=== PATIENT | male | born 1965 | race Caucasian/White ===

== ENCOUNTER 2017-08-21 09:43 | Observation (INO) | payer SELFPAY ==
[2017-08-21] MEDS ORDERED: NIFEDIPINE CAP 10 MG PO ONE (10:10)
--- NOTE | 2017-08-21 10:10 | DR.CP ---
HPI - Time Seen Time seen: 09:50 - PCP Primary Care Physician: TITA AVILES ENVIRONMENTAL SERVICES SPECIALIST - HPI Comment HPI Comment: HISTORY BELOW. LEFT EYE BINDNESS AND TRASIENT DECREASE VISION RT EYE THAT IS IMPROVING. RESIDUAL WEAKNESS ON LEFT SIDE IS WORSE CURRENTLY. - Complaint Chief Complaint Doctor Comments: HISTORY BELOW. SEVERE HEADACHE. Chief Complaint:: PATIENT WAS AT THE [facility] SEEING TITA STEFAN ALMAZAN. HE STATED THAT HE HAS BEEN HAVING CHEST PRESSURE ON THE LEFT SIDE OF HIS CHEST SINCE THIS MORNING AND ALSO PAIN TO HIS RIGHT EYE. HE WAS GIVING A CLONIDINE AND ASA 324MG AT THE DOCTORS OFFICE PRIOR TO EMS BEING CALLED. HE ALSO STATED THAT HIS CHEST PRESSURE IS NOW LESS THAN PRIOR TO ARRIVAL. - Reviewed Nurses Notes Review: Yes - Source History Provided: Patient, EMS - Mode of Arrival Mode of Arrival: EMS - Timing Onset of Chief Complaint: 08/21/17 Came on: Suddenly - Duration Duration: Constant Duration: Hours - Location Location of Chest Pain: Left, Chest - Context Onset: At rest Cardiac Risk Factors: HTN, Diabetes PE Risk Factors: None History of: Aspirin in last 24 hours Prehospital Care: Oxygen, ASA - Quality Quality: Pressure like, Heavy - Severity Severity: Moderate - Modifying Factors Worsens: Nothing Impoves: Nothing - Associated Signs and Symptoms Associated Signs and Symptoms: Shortness of Breath PMH - PMH Past Medical History: Yes Past Medical History: Anxiety, COPD, CVA, Hypertension Past Surgical History: Yes Surgical History: Other - Family History History of Family Medical Conditions: Yes Family Medical History: Diabetes Mellitus, Cancer, [place], Coronary Artery Disease, Sudden Cardiac , Hypertension - Social History Does patient currently use any type of tobacco product: No Have you used tobacco products in the last 12 months: No Type of Tobacco Use: None Does any household member use tobacco: No Alcohol Use: None Do you use any recreational Drugs:: No Lives With: Family Lives Where: Home - infectious screening In the last 2 months have you had wt loss of >10#?: NO Have you had fever, night sweats or hemotysis?: No Have you traveled outside the country in the last 6 months?: No Isolation: Standard ROS - Review of Systems Constitutional: Weakness, Fatigue. negative: Chills, Fever Eyes: No Symptoms Reported, Blurred Vision, Other (DECREASE VISION RIGHT EYE.) ENTM: negative: Ear Pain, Nose Pain, Nose Congestion, Throat Pain Respiratoy: Non-Productive Cough, Short of Breath, Wheezing. negative: Productive Cough, Hemoptysis Cardiovascular: Chest Pain Gastrointestinal/Abdominal: No Symptoms Reported Genitourinary: No Symptoms Reported Neurological: No Symptoms Reported, Headache, Numbness, Weakness, Dizziness, Other (DECREASE VISION) Musculoskeletal: No Symptoms Reported Integumentary: No Symptoms Reported Hematologic/Lymphatic: No Symptoms Reported Endocrine: No Symptoms Reported All Other Systems: Reviewed and Negative PE - Vitals Vitals: Temperature 98.7 F Pulse Rate 63 Respiratory Rate 20 Blood Pressure [Left Arm] 119/69 Blood Pressure [Right Arm] 147/89 Blood Pressure 204/90 O2 Sat by Pulse Oximetry 99 - General Limitations: No Limitations General Appearance: Alert - Head Head Exam: Normal Inspection - Eyes Eye exam: Other (DECREASE VISION RIGHT EYE. BLINDNESS LEFT EYE.) - ENT ENT Exam: Normal External Ear Exam - Chest Chest Inspection: Symmetric Chest Wall Rise - Respiratory Respiratory Exam: Normal Lung Sounds Bilat Respiratory Exam: Bilateral Rhonchi, Lower Rhonchi - Cardiovascular Cardiovascular Exam: Regular Rate, Normal Rhythm, Normal Heart Sounds Pulse: Normal, Radial, Femoral Edema: Normal - Abdominal Exam Abdominal Exam: Normal Bowel Sounds, Soft. negative: Tenderness - Back Back Exam: Normal Inspection - Neurologic Neurological Exam: Alert, Oriented X3 - Psychiatric Psychiatric Exam: Normal Affect, Normal Mood - Skin Skin Exam: Normal Color MDM - Additional Information Additional Information Obtained From: Family - Differential Diagnosis Differential Diagnosis: Angina, Chest Wall Pain, Myocardial Infarction, Pericarditis, Pleuritis, Pancreatitis, Pneumonia, Pneumothorax, Pulmonary Embolus Course - Treatment Treatment: SEE ORDERS. - Consultation Consultation Comments: DISCUSS PATIENT WITH DR. WOOD. HE WILL ADMIT PATIENT. - Education/Counseling Education/Counseling: Patient, Family, Education Educated On: Diagnosis ROR - Labs Reviewed Laboratory Results Reviewed?: Yes Result Diagrams: 08/22/17 04:55 08/22/17 04:55 Laboratory: WBC 10.1 X10^3/uL (3.6-10.0) H 08/21/17 10:20 RBC 5.09 X10^6/uL (4.7-6.0) 08/21/17 10:20 Hgb 15.5 g/dL (13.5-18.0) 08/21/17 10:20 Hct 45.1 % (42.0-54.0) 08/21/17 10:20 MCV 88.6 fL (80.0-100.0) 08/21/17 10:20 MCH 30.5 pg (27.0-34.0) 08/21/17 10:20 MCHC 34.4 g/dL (33.0-35.0) 08/21/17 10:20 RDW 14.1 % (11.6-16.5) 08/21/17 10:20 Plt Count 234 X10^3/uL (150.0-450.0) 08/21/17 10:20 MPV 8.3 fL (7.4-11.0) 08/21/17 10:20 Neut % (Auto) 69.6 % (42.0-75.0) 08/21/17 10:20 Lymph % (Auto) 17.0 % (21.0-51.0) L 08/21/17 10:20 Buchanan % (Auto) 8.9 % (0.0-13.0) 08/21/17 10:20 Eos % (Auto) 3.7 % (0.9-2.9) H 08/21/17 10:20 Baso % (Auto) 0.8 % (0.2-1.0) 08/21/17 10:20 Neut # (Auto) 7.1 x10^3/uL (2.2-4.8) H 08/21/17 10:20 Lymph # (Auto) 1.7 X10^3/uL (1.3-2.9) 08/21/17 10:20 Buchanan # (Auto) 0.9 x10^3/uL (0.3-0.8) H 08/21/17 10:20 Eos # (Auto) 0.4 x10^3/uL (0.0-0.2) H 08/21/17 10:20 Baso # (Auto) 0.1 X10^3/uL (0.0-0.1) 08/21/17 10:20 Absolute Nucleated RBC 0.0 /100WBC 08/21/17 10:20 INR Target Range - 08/21/17 10:20 INR 1.01 (0.8-1.3) 08/21/17 10:20 APTT 30.6 SECONDS (22.9-36.5) 08/21/17 10:20 PTT Comment - 08/21/17 10:20 Sodium 139 mmol/L (136-145) 08/21/17 10:20 Corrected Sodium TNP 08/21/17 10:20 Potassium 4.3 mmol/L (3.5-5.1) 08/21/17 10:20 Chloride 103 mmol/L (98-107) 08/21/17 10:20 Carbon Dioxide 27.9 mmol/L (21-32) 08/21/17 10:20 BUN 14 mg/dL (7-18) 08/21/17 10:20 Creatinine 0.93 mg/dL (0.70-1.30) 08/21/17 10:20 Est GFR (MDRD) Af Amer > 60 (>60) 08/21/17 10:20 Est GFR (MDRD) Non-Af > 60 (>60) 08/21/17 10:20 Glucose 105 mg/dL (65-99) H 08/21/17 10:20 Calcium 9.1 mg/dL (8.5-10.1) 08/21/17 10:20 Corrected Calcium TNP 08/21/17 10:20 Total Bilirubin 0.40 mg/dL (0.2-1.0) 08/21/17 10:20 AST 21 Units/L (15-37) 08/21/17 10:20 ALT 47 Units/L (12-78) 08/21/17 10:20 Alkaline Phosphatase 92 Units/L (46-116) 08/21/17 10:20 Creatine Kinase 237 Units/L (39-308) 08/21/17 10:20 CK-MB (CK-2) 5.2 ng/mL (0-4.0) H* 08/21/17 10:20 CK/CKMB % Calc 2.2 % (<4) 08/21/17 10:20 Troponin I < 0.02 ng/mL (0-1.5) 08/21/17 10:20 Total Protein 8.1 g/dL (6.4-8.2) 08/21/17 10:20 Albumin 3.8 g/dL (3.4-5.0) 08/21/17 10:20 Globulin 4.3 g/dL (2.5-4.5) 08/21/17 10:20 Albumin/Globulin Ratio 0.9 Ratio (1.1-2.1) L 08/21/17 10:20 - XRAY XRAY Interpreted by: Radiologist XRAY Findings: REPORTDISCUSS WITH PATIENT AND HIS FAMILY. - Diagnosis Discharge Problem: AFX (amaurosis fugax) Altered mental status Qualifiers: Altered mental status type: transient alteration of awareness Qualified Code(s) : R40.4 - Transient alteration of awareness Chest pain Qualifiers: Chest pain type: precordial pain Qualified Code(s): R07.2 - Precordial pain - Discharge Plan Disposition: ADMITTED INPATIENT Condition: Stable - Follow ups/Referrals - Instructions
[2017-08-21] MEDS ORDERED: NIFEDIPINE CAP 10 MG ONE (10:12)
[2017-08-21 10:39] LABS: BASOPHILS # (AUTO) 0.1 X10^3/uL (0.0-0.1); BASOPHILS % (AUTO) 0.8 % (0.2-1.0); EOSINOPHILS # (AUTO) 0.4 x10^3/uL (0.0-0.2); EOSINOPHILS % (AUTO) 3.7 % (0.9-2.9); HEMATOCRIT 45.1 % (42.0-54.0); HEMOGLOBIN 15.5 g/dL (13.5-18.0); LYMPHOCYTES # (AUTO) 1.7 X10^3/uL (1.3-2.9); MEAN CORPUSCULAR HEMOGLOBIN 30.5 pg (27.0-34.0); MEAN CORPUSCULAR HGB CONC 34.4 g/dL (33.0-35.0); MEAN CORPUSCULAR VOLUME 88.6 fL (80.0-100.0); MEAN PLATELET VOLUME 8.3 fL (7.4-11.0); MONOCYTES # (AUTO) 0.9 x10^3/uL (0.3-0.8); MONOCYTES % (AUTO) 8.9 % (0.0-13.0); NEUTROPHILS # (AUTO) 7.1 x10^3/uL (2.2-4.8); NEUTROPHILS % (AUTO) 69.6 % (42.0-75.0); PLATELET COUNT 234 X10^3/uL (150.0-450.0); RED BLOOD COUNT 5.09 X10^6/uL (4.7-6.0); RED CELL DISTRIBUTION WIDTH 14.1 % (11.6-16.5); WHITE BLOOD COUNT 10.1 X10^3/uL (3.6-10.0)
--- NOTE | 2017-08-21 10:51 | RAD ---
HISTORY: Chest pressure, pain Study: Single-view of the chest Comparison: None Findings: The lungs are clear. Cardiomediastinal contours are within normal limits. The trachea is midline. No effusion or pneumothorax. The soft tissues are intact. IMPRESSION: 1. No acute cardiopulmonary abnormality. Reported By:
[2017-08-21 10:52] LABS: BLOOD UREA NITROGEN 14 mg/dL (7-18); CALCIUM 9.1 mg/dL (8.5-10.1); CARBON DIOXIDE 27.9 mmol/L (21-32); CHLORIDE 103 mmol/L (98-107); CREATININE 0.93 mg/dL (0.70-1.30); SODIUM 139 mmol/L (136-145); TROPONIN I < 0.02 ng/mL (0-1.5); eGFR BLACK RACES > 60 (>60); eGFR NON BLACK RACES > 60 (>60)
--- NOTE | 2017-08-21 10:54 | CT ---
HISTORY: Headache. Decreased vision in right eye. Study: CT brain without contrast. Comparison: None. Technique: Multiple axial images of the brain were obtained from the skull base to the vertex without administra tion of IV contrast. Findings: There is an old lacunar infarct of the right basal ganglia. No acute intraparenchymal hemo rrhage or mass can be identified. No extra-axial fluid collections are seen. No alteration in the a ttenuation of the brain parenchyma can be identified to suggest acute or subacute ischemic change. T he ventricular system is symmetric and nondilated. The extracranial structures are grossly unremarka ble. IMPRESSION: No acute intracranial abnormality is evident. If strong clinical concern for acute intracranial abnor mality remains, then MR of the brain may be of further diagnostic benefit. Old lacunar infarct of the right basal ganglia. Reported By:
[2017-08-21 11:15] LABS: ALANINE AMINOTRANSFERASE 47 Units/L (12-78); ALBUMIN 3.8 g/dL (3.4-5.0); ALKALINE PHOSPHATASE 92 Units/L (46-116); ASPARTATE AMINO TRANSFERASE 21 Units/L (15-37); CKMB % 2.2 % (<4); CREATINE KINASE 237 Units/L (39-308); TOTAL PROTEIN 8.1 g/dL (6.4-8.2)
[2017-08-21 11:20] LABS: CREATINE KINASE MB 5.2 ng/mL (0-4.0)
[2017-08-21] MEDS ORDERED: MORPHINE SULFATE INJ 4 MG IVP ONE (11:59)
[2017-08-21] MEDS ORDERED: ZOFRAN INJ 4 MG VIAL IVP ONE (11:59)
[2017-08-21] MEDS ORDERED: MORPHINE SULFATE INJ 4 MG ONE (12:18)
[2017-08-21] MEDS ORDERED: ZOFRAN INJ 4 MG VIAL ONE (12:18)
[2017-08-21] MEDS ORDERED: DEMEROL INJ IVP ONE (12:22)
[2017-08-21] MEDS ORDERED: DEMEROL INJ ONE (12:23)
[2017-08-21 12:30] LABS: BILIRUBIN,URINE NEGATIVE (NEGATIVE); BLOOD/HEMOGLOBIN,URINE NEGATIVE (NEGATIVE); GLUCOSE, URINE NEGATIVE (NEGATIVE); KETONES,URINE NEGATIVE (NEGATIVE); LEUKOCYTE ESTERASE ,URINE 1+ (NEGATIVE); NITRITES,URINE NEGATIVE (NEGATIVE); PROTEIN,URINE 2+ (NEGATIVE); UROBILINOGEN,URINE NORMAL (NORMAL)
[2017-08-21 12:37] LABS: APPEARANCE,URINE HAZY (CLEAR); COLOR,URINE YELLOW (YELLOW)
[2017-08-21 12:38] LABS: BACTERIA,URINE NEGATIVE /HPF (NEGATIVE); MUCUS,URINE FEW /HPF (NEGATIVE); RBC,URINE NONE SEEN /HPF (NONE SEEN); SQUAMOUS EPITHELIAL CELL,UR NEGATIVE /HPF (NEGATIVE)
[2017-08-21] MEDS: NS 1000 ML 1,000 ML IV SCH (14:36)
[2017-08-21 18:34] LABS: CKMB % 2.3 % (<4); CREATINE KINASE 193 Units/L (39-308); TROPONIN I < 0.02 ng/mL (0-1.5)
[2017-08-21 18:35] LABS: CREATINE KINASE MB 4.5 ng/mL (0-4.0)
[2017-08-22 00:08] LABS: CKMB % 2.3 % (<4); CREATINE KINASE 175 Units/L (39-308); TROPONIN I < 0.02 ng/mL (0-1.5)
[2017-08-22 00:12] LABS: CREATINE KINASE MB 4.1 ng/mL (0-4.0)
[2017-08-22] MEDS ORDERED: NITROSTAT SL PRN (00:24)
[2017-08-22] MEDS: NS 1000 ML 1,000 ML IV SCH ×2 (04:38→16:18)
[2017-08-22 05:35] VITALS: BMI 33.0
[2017-08-22 06:34] LABS: BASOPHILS % (AUTO) 0.5 % (0.2-1.0); EOSINOPHILS # (AUTO) 0.4 x10^3/uL (0.0-0.2); EOSINOPHILS % (AUTO) 4.7 % (0.9-2.9); HEMATOCRIT 42.5 % (42.0-54.0); HEMOGLOBIN 14.7 g/dL (13.5-18.0); LYMPHOCYTES # (AUTO) 1.4 X10^3/uL (1.3-2.9); MEAN CORPUSCULAR HEMOGLOBIN 30.4 pg (27.0-34.0); MEAN CORPUSCULAR HGB CONC 34.5 g/dL (33.0-35.0); MEAN CORPUSCULAR VOLUME 88.2 fL (80.0-100.0); MEAN PLATELET VOLUME 8.5 fL (7.4-11.0); MONOCYTES # (AUTO) 0.6 x10^3/uL (0.3-0.8); NEUTROPHILS # (AUTO) 6.1 x10^3/uL (2.2-4.8); NEUTROPHILS % (AUTO) 71.8 % (42.0-75.0); PLATELET COUNT 206 X10^3/uL (150.0-450.0); RED BLOOD COUNT 4.82 X10^6/uL (4.7-6.0); RED CELL DISTRIBUTION WIDTH 13.5 % (11.6-16.5); WHITE BLOOD COUNT 8.5 X10^3/uL (3.6-10.0)
[2017-08-22 07:12] LABS: ALANINE AMINOTRANSFERASE 42 Units/L (12-78); ALBUMIN 3.2 g/dL (3.4-5.0); ALKALINE PHOSPHATASE 87 Units/L (46-116); ASPARTATE AMINO TRANSFERASE 23 Units/L (15-37); BLOOD UREA NITROGEN 16 mg/dL (7-18); CALCIUM 8.4 mg/dL (8.5-10.1); CARBON DIOXIDE 27.5 mmol/L (21-32); CHLORIDE 105 mmol/L (98-107); CHOL/HDL RATIO 7.1 (0.0-5.0); CHOLESTEROL 171 mg/dL (0-200); CREATININE 0.91 mg/dL (0.70-1.30); HDL CHOLESTEROL 24 mg/dL (40-60); MAGNESIUM 2.1 mg/dL (1.7-2.9); SODIUM 140 mmol/L (136-145); TOTAL PROTEIN 7.1 g/dL (6.4-8.2); TRIGLYCERIDES 314 mg/dL (0-150); eGFR BLACK RACES > 60 (>60); eGFR NON BLACK RACES > 60 (>60)
[2017-08-22] MEDS: ZESTORETIC 10/ 12.5MG PO SCH (08:51)
[2017-08-22] MEDS ORDERED: ASPIRIN EC 81 MG PO SCH (09:00)
[2017-08-22] MEDS: CRESTOR TAB 10 MG PO SCH ×2 (11:03→11:11)
[2017-08-22] MEDS: ECOTRIN TAB 325 MG PO SCH (11:04)
--- NOTE | 2017-08-22 12:36 | MRI ---
STUDY: MRA OF THE BRAIN HISTORY: Altered mental status. Weakness. Blurred vision. Comparison: None. Technique: 3D [id number] imaging of the intracranial circulation was performed. Findings: 3D [id number] MRA examination shows normal flow related enhancement in the major intracranial art eries. There is no evidence of hemodynamically significant stenosis or aneurysm. There is a tiny ante rior communicating artery. There is a [employer] on the right. A small posterior communicating artery is identified on the left. There are normal bilateral P2 [employer] segments and a normal left P1 segment. T he right vertebral artery is dominant. The basilar artery is intact. There are bilateral superior cer ebellar arteries. IMPRESSION: 1. Normal MRA of the brain, with anatomic variation as described. Reported By:
--- NOTE | 2017-08-22 12:53 | VAS ---
HISTORY: Altered mental status, weakness, blurred vision. History of CVA. Study: Carotid Doppler ultrasound Comparison: None Technique: Multiple avelar scale and color flow Doppler images of the right and left carotid arterial s ystem were obtained. The vertebral arterial system was evaluated as well. Findings: Mild atherosclerotic plaque is noted within the right carotid bulb. No hemodynamically significant s tenosis is seen based on velocity criteria. The peak systolic velocity in the right ICA is 77.6 centi meters/second, with an ICA/CCA ratio of 1.5. The peak systolic velocity in the left ICA is 70.7 centi meters/second, with an ICA/CCA ratio of 1.5. The right and left vertebral arteries demonstrate antegr aly flow. IMPRESSION: 1. No hemodynamically significant stenosis. Reported By:
--- NOTE | 2017-08-22 13:50 | MRI ---
STUDY: MRI OF THE BRAIN WITHOUT GADOLINIUM HISTORY: Altered mental status. Weakness. Blurred vision. History CVA. Technique: Multiplanar multi-sequence MRI of the brain was obtained utilizing standard departmental p rotocol. Sagittal and axial T1, axial T2, FLAIR, diffusion (DWI/ADC), GRE, and coronal T2 [facility] the brain were performed. Comparison: Head CT from August 21, 2017. Findings: There is metallic susceptibility artifact originating over the right frontal scalp and righ t face. The sulci, cisterns and ventricles are age appropriate. There are confluent and scattered foci of T2 prolongation in the periventricular and subcortical white matter of both hemispheres. This is a nonsp ecific finding which likely represents microangiopathic change in a patient of this age. There is no evidence of acute territorial infarction, hemorrhage, mass, mass effect, or midline shift . There are no abnormal intra-axial or extra-axial fluid collections. The major intracranial vascula r flow voids appear intact. The left vertebral artery appears dominant. There is fluid in mastoid ai r cells on the right and left. IMPRESSION: 1. No evidence of acute intracranial abnormality. 2. Nonspecific white matter change. 3. Bilateral mastoid fluid. Clinical correlation is recommended. Reported By:
--- NOTE | 2017-08-22 14:58 | DR.H&P ---
H&P - History & Physical for Day of: H&P Date: 08/21/17 - Chief Complaint Chief Complaint: CHEST PAIN - Allergies Allergies/Adverse Reactions: Allergies Allergy/AdvReac Type Severity Reaction Status Date / Time morphine Allergy Verified 08/21/17 09:44 - History of Present Illness History of Present Illness: IS A 51 YEAR OLD PATIENT OF [facility] WHO PRESENTED TO THE EMERGENCY ROOM WITH COMPLAINTS OF LEFT SIDED CHEST PRESSURE AND PAIN TO RIGHT EYE. HE REPORTS THAT HE WAS GIVEN A CLONIDINE AND ASA 324MG AT THE OFFICE AND SENT TO THE EMERGENCY ROOM VIA EMS. PATIENT REPORTS THAT HIS CHEST PRESSURE IS LESS NOW THAN WHEN AT THE OFFICE. ASSOCIATED SYMPTOMS INCLUDE WEAKNESS, FATIGUE, BLURRED VISION, NON-PRODUCTIVE COUGH, SHORTNESS OF BREATH, WHEEZING, CHEST PAIN, AND HEADACHE. PATIENT REPORTS A HISTORY SIGNIFICANT FOR CVA WITH ASSOCIATED LEFT SIDED WEAKNESS AND VISION CHANGES. ON ARRIVAL, VITALS WERE 98.7-63-20-99%-204/90. ABNORMAL LAB VALUES INCLUDE THE FOLLOWING: WBC 10.1, GLUCOSE 105, CK-MB 5.2. A BRAIN CT WAS OBTAINED AND REVEALED NO ACUTE INTRACRANIAL ABNORMALITY. OLD LUCUNAR INFARCT OF THE RIGHT BASAL GANGLIA. CHEST XRAY REPORTED NO ACUTE CARDIOPULMONARY ABNORMALITY. HE WAS GIVEN DEMEROL 25MG IV X 1, ZOFRAN 4MG IV X 1, AND NIFEDIPINE 10MG PO X 1. PATIENT WAS ADMITTED FOR FURTHER EVALUATION AND TREATMENT. HE WILL BE PLACED ON TELEMETRY AND SERIAL CARDIAC ENZYMES AND EKGS OBTAINED. OTHERWISE, WE WILL FOLLOW UP WITH AM LABS AND CONTINUE TO MONITOR PATIENT. - Past Medical History Past Medical History: Anxiety, COPD, CVA, Hypertension - Past Surgical History Surgical History: Other - Family History Family Medical History: Diabetes Mellitus, Cancer, [place], Coronary Artery Disease, Sudden Cardiac , Hypertension - Social History Does patient currently use any type of tobacco product: No Have you used tobacco products in the last 12 months: No Type of Tobacco Use: None How many years tobacco product used: 20 Does any household member use tobacco: No Alcohol Use: None Drug Use: Prescription Drugs - Medications Home Medications: Alprazolam [XANAX 0.5 MG *] 0.5 mg PO HS 08/21/17 [History Confirmed 08/21/17] Aspirin EC [ASPIRIN EC 81 MG *] 1 tab PO DAILY 08/21/17 [History Confirmed 08/21] Lisinopril/Hydrochlorothiazide [Lisinopril-Hctz 10-12.5 mg Tab] 1 tab PO DAILY 08/21/17 [History Confirmed 08/21/17] - Review of Systems Constitutional: Weakness, Malaise Eyes: No Symptoms Reported Respiratory: Cough, Shortness of Breath, Wheezing Cardiovascular: Chest Pain, Light Headedness Gastrointestinal: No Symptoms Reported Genitourinary: No Symptoms Reported Musculoskeletal: No Symptoms Reported Skin: Rash (LEFT ARM ) Neurological: Weakness, Other (HEADACHE, DECREASED VISION IN RIGHT EYE) - Physical Exam Vital Signs: Temperature 98.2 F Pulse Rate [Right Brachial] 65 Pulse Rate [Left Brachial] 67 Pulse Rate 63 Respiratory Rate 20 Blood Pressure [Left Arm] 169/89 Blood Pressure [Right Arm] 144/79 Blood Pressure 204/90 O2 Sat by Pulse Oximetry 96 Oriented: Normal Eyes: Blurred Vision Ear: Normal Nose: Normal Throat: Normal Respiratory: Wheezes Throughout Cardiovascular: Normal. negative: S3, S4, Murmur : Normal Auscultation: Bowel Sounds: Normal Palpation: Normal Tenderness: Normal Skin: Rash Musculoskeletal: Normal Psychiatric: Normal Mood Description: Calm Affect: Normal Speech Pattern: Clear - Assessment/Plan (1) Chest pain Qualifiers: Chest pain type: precordial pain Qualified Code(s): R07.2 - Precordial pain Status: Acute Plan: ADMIT, TELEMETRY, SERIAL CARDIAC ENZYMES AND EKG, CONTINUE TO MONITOR (2) Altered mental status Qualifiers: Altered mental status type: transient alteration of awareness Qualified Code(s): R40.4 - Transient alteration of awareness Status: Acute Plan: OBTAIN BRAIN MRI, MRA IN THE AM, CONTINUE TO MONITOR
[2017-08-22] MEDS: XANAX PO SCH (20:46)
[2017-08-23] MEDS: NS 1000 ML 1,000 ML IV SCH ×2 (04:19→20:56)
[2017-08-23 06:21] LABS: BASOPHILS # (AUTO) 0.1 X10^3/uL (0.0-0.1); BASOPHILS % (AUTO) 0.7 % (0.2-1.0); EOSINOPHILS # (AUTO) 0.4 x10^3/uL (0.0-0.2); EOSINOPHILS % (AUTO) 4.7 % (0.9-2.9); HEMATOCRIT 43.7 % (42.0-54.0); HEMOGLOBIN 15.3 g/dL (13.5-18.0); LYMPHOCYTES # (AUTO) 1.4 X10^3/uL (1.3-2.9); LYMPHOCYTES % (AUTO) 17.2 % (21.0-51.0); MEAN CORPUSCULAR HEMOGLOBIN 30.6 pg (27.0-34.0); MEAN CORPUSCULAR HGB CONC 34.9 g/dL (33.0-35.0); MEAN CORPUSCULAR VOLUME 87.6 fL (80.0-100.0); MEAN PLATELET VOLUME 8.6 fL (7.4-11.0); MONOCYTES # (AUTO) 0.7 x10^3/uL (0.3-0.8); MONOCYTES % (AUTO) 8.6 % (0.0-13.0); NEUTROPHILS # (AUTO) 5.7 x10^3/uL (2.2-4.8); NEUTROPHILS % (AUTO) 68.8 % (42.0-75.0); PLATELET COUNT 207 X10^3/uL (150.0-450.0); RED BLOOD COUNT 4.99 X10^6/uL (4.7-6.0); RED CELL DISTRIBUTION WIDTH 13.6 % (11.6-16.5); WHITE BLOOD COUNT 8.3 X10^3/uL (3.6-10.0)
[2017-08-23 06:42] LABS: ALANINE AMINOTRANSFERASE 40 Units/L (12-78); ALBUMIN 3.4 g/dL (3.4-5.0); ALKALINE PHOSPHATASE 91 Units/L (46-116); ASPARTATE AMINO TRANSFERASE 19 Units/L (15-37); BLOOD UREA NITROGEN 15 mg/dL (7-18); CALCIUM 8.3 mg/dL (8.5-10.1); CARBON DIOXIDE 28.6 mmol/L (21-32); CHLORIDE 104 mmol/L (98-107); SODIUM 141 mmol/L (136-145); TOTAL PROTEIN 7.7 g/dL (6.4-8.2); eGFR BLACK RACES > 60 (>60); eGFR NON BLACK RACES > 60 (>60)
[2017-08-23] MEDS: ECOTRIN TAB 325 MG PO SCH (09:32)
[2017-08-23] MEDS: PATIENT'S HOME MEDICATION PO SCH ×2 (09:33→20:57)
[2017-08-23] MEDS: ZESTORETIC 10/ 12.5MG PO SCH (09:33)
[2017-08-23] MEDS ORDERED: XANAX PO ONE (10:58)
[2017-08-23] MEDS: OMNICEF CAP 300 MG PO SCH ×2 (11:11→20:56)
[2017-08-23] MEDS: PLAVIX PO SCH (11:11)
[2017-08-23] MEDS: NORVASC TAB 5 MG PO SCH (11:11)
[2017-08-23] MEDS: XANAX PO SCH (20:56)
[2017-08-24 06:07] LABS: BASOPHILS # (AUTO) 0.1 X10^3/uL (0.0-0.1); BASOPHILS % (AUTO) 0.8 % (0.2-1.0); EOSINOPHILS # (AUTO) 0.4 x10^3/uL (0.0-0.2); EOSINOPHILS % (AUTO) 4.4 % (0.9-2.9); HEMATOCRIT 44.2 % (42.0-54.0); HEMOGLOBIN 15.4 g/dL (13.5-18.0); LYMPHOCYTES # (AUTO) 1.5 X10^3/uL (1.3-2.9); LYMPHOCYTES % (AUTO) 17.8 % (21.0-51.0); MEAN CORPUSCULAR HEMOGLOBIN 30.7 pg (27.0-34.0); MEAN CORPUSCULAR VOLUME 87.7 fL (80.0-100.0); MEAN PLATELET VOLUME 8.4 fL (7.4-11.0); MONOCYTES # (AUTO) 0.7 x10^3/uL (0.3-0.8); MONOCYTES % (AUTO) 7.9 % (0.0-13.0); NEUTROPHILS # (AUTO) 5.8 x10^3/uL (2.2-4.8); NEUTROPHILS % (AUTO) 69.1 % (42.0-75.0); PLATELET COUNT 210 X10^3/uL (150.0-450.0); RED BLOOD COUNT 5.03 X10^6/uL (4.7-6.0); RED CELL DISTRIBUTION WIDTH 13.5 % (11.6-16.5); WHITE BLOOD COUNT 8.3 X10^3/uL (3.6-10.0)
[2017-08-24 07:25] LABS: ALANINE AMINOTRANSFERASE 41 Units/L (12-78); ALBUMIN 3.4 g/dL (3.4-5.0); ALKALINE PHOSPHATASE 90 Units/L (46-116); ASPARTATE AMINO TRANSFERASE 25 Units/L (15-37); BLOOD UREA NITROGEN 13 mg/dL (7-18); CALCIUM 8.7 mg/dL (8.5-10.1); CARBON DIOXIDE 28.2 mmol/L (21-32); CHLORIDE 104 mmol/L (98-107); COR NA(FOR HYPERGLY) 141 mmol/L (136-145); CREATININE 0.94 mg/dL (0.70-1.30); SODIUM 141 mmol/L (136-145); TOTAL PROTEIN 7.5 g/dL (6.4-8.2); eGFR BLACK RACES > 60 (>60); eGFR NON BLACK RACES > 60 (>60)
[2017-08-24] MEDS: NS 1000 ML 1,000 ML IV SCH (07:52)
[2017-08-24] MEDS: NORCO 5/325 MG TAB PO PRN ×2 (07:52→12:20)
[2017-08-24] MEDS: ZESTORETIC 10/ 12.5MG PO SCH (08:19)
[2017-08-24] MEDS: PATIENT'S HOME MEDICATION PO SCH (08:19)
[2017-08-24] MEDS: PLAVIX PO SCH (08:19)
[2017-08-24] MEDS: OMNICEF CAP 300 MG PO SCH (08:19)
[2017-08-24] MEDS: NORVASC TAB 5 MG PO SCH (08:19)
[2017-08-24] MEDS: ECOTRIN TAB 325 MG PO SCH (08:19)
[2017-08-24 12:16] VITALS: BP 173/84
--- NOTE | 2017-08-27 13:07 | PCM.PROG ---
Progress Note - Progress Note for Day of Date: 08/22/17 - Subjective Subjective: IS BEING TREATED FOR CHEST PAIN AND ALTERED MENTAL STATUS. TODAY, HE IS ALERT AND ORIENTED, LYING IN BED ON MORNING ROUNDS. HE IS NOTED WITH COMPLAINTS OF HEADACHE, GENERALIZED WEAKNESS, AND BLURRED VISION. PATIENT REPORTS A PAST HISTORY OF A STROKE WHICH AFFECTED THE LEFT SIDE OF HIS BODY. HIS VITALS THIS MORNING ARE 97.8-64-18-94%-161/86. HE IS HEMODYNAMICALLY STABLE. CARDIAC ENZYMES AND EKGS HAVE BEEN WITHIN NORMAL LIMITS. TODAY, WE WILL OBTAIN A BRAIN MRI/MRA, ECHO, CAROTID DOPPLER AND START PATIENT ON ECOTRIN 325MG PO DAILY AND ROSOUVASTATIN 20MG PO HS. OTHERWISE, WE WILL FOLLOW UP WITH AM LABS AND CONTINUE TO MONITOR PATIENT. - Past Medical Family Social History Past Med/Fam/Surg Hx: No changes since H&P Allergies: Allergies morphine Allergy (Verified 08/21/17 09:44) atorvastatin Adverse Reaction (Verified 08/22/17 16:20) rosuvastatin [From Crestor] Adverse Reaction (Verified 08/22/17 16:20) Gormqux-Stw-Yox Reductase Inhibitor Adverse Reaction (Verified 08/22/17 16:20) - Review of Systems ROS: No change since H&P - Vital Signs and I&O's Vital Signs: Temperature 97.7 F Pulse Rate [Right Brachial] 68 Pulse Rate [Left Brachial] 66 Pulse Rate 63 Respiratory Rate 20 Blood Pressure [Left Arm] 173/84 Blood Pressure [Right Arm] 135/61 Blood Pressure 204/90 O2 Sat by Pulse Oximetry 93 - Physical Exam Oriented: Normal Eyes: Blurred Vision Ear: Normal Nose: Normal Throat: Normal Respiratory: Normal Cardiovascular: Normal. negative: S3, S4, Murmur : Normal Auscultation: Bowel Sounds: Normal Palpation: Normal Tenderness: Normal Skin: Rash Musculoskeletal: Normal Psychiatric: Normal Mood Description: Calm Affect: Normal Speech Pattern: Clear, Appropriate - Laboratory and Diagnostics Result Diagrams: 08/24/17 04:55 08/24/17 04:55 Labs: Laboratory WBC 8.3 X10^3/uL (3.6-10.0) 08/24/17 04:55 RBC 5.03 X10^6/uL (4.7-6.0) 08/24/17 04:55 Hgb 15.4 g/dL (13.5-18.0) 08/24/17 04:55 Hct 44.2 % (42.0-54.0) 08/24/17 04:55 MCV 87.7 fL (80.0-100.0) 08/24/17 04:55 MCH 30.7 pg (27.0-34.0) 08/24/17 04:55 MCHC 35.0 g/dL (33.0-35.0) 08/24/17 04:55 RDW 13.5 % (11.6-16.5) 08/24/17 04:55 Plt Count 210 X10^3/uL (150.0-450.0) 08/24/17 04:55 MPV 8.4 fL (7.4-11.0) 08/24/17 04:55 Neut % (Auto) 69.1 % (42.0-75.0) 08/24/17 04:55 Lymph % (Auto) 17.8 % (21.0-51.0) L 08/24/17 04:55 Prentiss % (Auto) 7.9 % (0.0-13.0) 08/24/17 04:55 Eos % (Auto) 4.4 % (0.9-2.9) H 08/24/17 04:55 Baso % (Auto) 0.8 % (0.2-1.0) 08/24/17 04:55 Neut # (Auto) 5.8 x10^3/uL (2.2-4.8) H 08/24/17 04:55 Lymph # (Auto) 1.5 X10^3/uL (1.3-2.9) 08/24/17 04:55 Prentiss # (Auto) 0.7 x10^3/uL (0.3-0.8) 08/24/17 04:55 Eos # (Auto) 0.4 x10^3/uL (0.0-0.2) H 08/24/17 04:55 Baso # (Auto) 0.1 X10^3/uL (0.0-0.1) 08/24/17 04:55 Absolute Nucleated RBC 0.2 /100WBC 08/24/17 04:55 INR Target Range - 08/21/17 10:20 INR 1.01 (0.8-1.3) 08/21/17 10:20 APTT 30.6 SECONDS (22.9-36.5) 08/21/17 10:20 PTT Comment - 08/21/17 10:20 Sodium 141 mmol/L (136-145) 08/24/17 04:55 Corrected Sodium 141 mmol/L (136-145) 08/24/17 04:55 Potassium 4.0 mmol/L (3.5-5.1) 08/24/17 04:55 Chloride 104 mmol/L (98-107) 08/24/17 04:55 Carbon Dioxide 28.2 mmol/L (21-32) 08/24/17 04:55 BUN 13 mg/dL (7-18) 08/24/17 04:55 Creatinine 0.94 mg/dL (0.70-1.30) 08/24/17 04:55 Est GFR (MDRD) Af Amer > 60 (>60) 08/24/17 04:55 Est GFR (MDRD) Non-Af > 60 (>60) 08/24/17 04:55 Glucose 116 mg/dL (65-99) H 08/24/17 04:55 POC Glucose (mg/dL) 141 mg/dL (65-99) H 08/23/17 20:55 Calcium 8.7 mg/dL (8.5-10.1) 08/24/17 04:55 Corrected Calcium TNP 08/24/17 04:55 Magnesium 2.1 mg/dL (1.7-2.9) 08/22/17 04:55 Total Bilirubin 0.30 mg/dL (0.2-1.0) 08/24/17 04:55 AST 25 Units/L (15-37) 08/24/17 04:55 ALT 41 Units/L (12-78) 08/24/17 04:55 Alkaline Phosphatase 90 Units/L (46-116) 08/24/17 04:55 Creatine Kinase 175 Units/L (39-308) 08/21/17 22:50 CK-MB (CK-2) 4.1 ng/mL (0-4.0) H 08/21/17 22:50 CK/CKMB % Calc 2.3 % (<4) 08/21/17 22:50 Troponin I < 0.02 ng/mL (0-1.5) 08/21/17 22:50 Total Protein 7.5 g/dL (6.4-8.2) 08/24/17 04:55 Albumin 3.4 g/dL (3.4-5.0) 08/24/17 04:55 Globulin 4.1 g/dL (2.5-4.5) 08/24/17 04:55 Albumin/Globulin Ratio 0.8 Ratio (1.1-2.1) L 08/24/17 04:55 Triglycerides 314 mg/dL (0-150) H 08/22/17 04:55 Cholesterol 171 mg/dL (0-200) 08/22/17 04:55 LDL Cholesterol, Calc 84 mg/dL (0-100) 08/22/17 04:55 HDL Cholesterol 24 mg/dL (40-60) L 08/22/17 04:55 Cholesterol/HDL Ratio 7.1 (0.0-5.0) H 08/22/17 04:55 Specimen Type Clean catch urine 08/21/17 12:18 Urine Color Yellow (YELLOW) 08/21/17 12:18 Urine Appearance Hazy (CLEAR) 08/21/17 12:18 Urine pH 7.0 (5.0 - 8.0) 08/21/17 12:18 Ur Specific [place] 1.010 (1.000-1.030) 08/21/17 12:18 Urine Protein 2+ (NEGATIVE) 08/21/17 12:18 Urine Glucose (UA) Negative (NEGATIVE) 08/21/17 12:18 Urine Ketones Negative (NEGATIVE) 08/21/17 12:18 Urine Occult Blood Negative (NEGATIVE) 08/21/17 12:18 Urine Nitrite Negative (NEGATIVE) 08/21/17 12:18 Urine Bilirubin Negative (NEGATIVE) 08/21/17 12:18 Urine Urobilinogen Normal (NORMAL) 08/21/17 12:18 Ur Leukocyte Esterase 1+ (NEGATIVE) 08/21/17 12:18 Urine RBC None seen /HPF (NONE SEEN) 08/21/17 12:18 Urine WBC 0-2 /HPF (NONE SEEN) 08/21/17 12:18 Ur Squamous Epith Cells Negative /HPF (NEGATIVE) 08/21/17 12:18 Urine Bacteria Negative /HPF (NEGATIVE) 08/21/17 12:18 Urine Mucus Few /HPF (NEGATIVE) 08/21/17 12:18 Ur Culture Indicated? No/not indicated 08/21/17 12:18 - Plan (1) Chest pain Status: Acute Qualifiers: Chest pain type: precordial pain Qualified Code(s): R07.2 - Precordial pain Plan: ADMIT, TELEMETRY, SERIAL CARDIAC ENZYMES AND EKG, CONTINUE TO MONITOR (2) Altered mental status Status: Acute Qualifiers: Altered mental status type: transient alteration of awareness Qualified Code(s): R40.4 - Transient alteration of awareness Plan: OBTAIN BRAIN MRI, MRA IN THE AM, CONTINUE TO MONITOR
--- NOTE | 2017-08-27 13:08 | PCM.PROG ---
Progress Note - Progress Note for Day of Date: 08/23/17 - Subjective Subjective: IS BEING TREATED FOR CHEST PAIN AND BLURRED VISION. TODAY, HE IS ALERT AND ORIENTED, LYING IN BED ON MORNING ROUNDS. HE IS NOTED WITH COMPLAINTS OF GENERALIZED WEAKNESS AND BLURRED VISION. HIS VITALS THIS MORNING ARE 97.5-64-20-95%-173/96. HE IS HEMODYNAMICALLY STABLE. TODAY, WE WILL OBTAIN A BRAIN MRI/MRA, ECHO, CAROTID DOPPLER AND START PATIENT ON ECOTRIN 325MG PO DAILY AND ROSOUVASTATIN 20MG PO HS. OTHERWISE, WE WILL FOLLOW UP WITH AM LABS AND CONTINUE TO MONITOR PATIENT. A BRAIN MRI WAS OBTAINED YESTERDAY AND REVEALED BILATERAL MASTOID FLUID. BRAIN MRA IS NORMAL. CAROTID DOPPLER REVEALS NO HEMODYNAMICALLY SIGNIFICANT STENOSIS. AN ECHOCARDIOGRAM WAS OBTAINED AND REVELAED AN EJECTION FRACTION OF 70-75%. PATIENT REPORTS THAT HE IS UNABLE TO TAKE ANY STATINS. TODAY, WE WILL START OMNICEF 300MG PO BID AND PLAVIX. OTHERWISE, WE WILL CONTINUE WITH CURRENT PLAN OF CARE. WE PLAN TO FOLLOW UP WITH AM LABS AND CONTINUE TO MONITOR PATIENT. - Past Medical Family Social History Past Med/Fam/Surg Hx: No changes since H&P Allergies: Allergies morphine Allergy (Verified 08/21/17 09:44) atorvastatin Adverse Reaction (Verified 08/22/17 16:20) rosuvastatin [From Crestor] Adverse Reaction (Verified 08/22/17 16:20) Dedjgqp-Ety-Cqw Reductase Inhibitor Adverse Reaction (Verified 08/22/17 16:20) - Review of Systems ROS: No change since H&P - Vital Signs and I&O's Vital Signs: Temperature 97.7 F Pulse Rate [Right Brachial] 68 Pulse Rate [Left Brachial] 66 Pulse Rate 63 Respiratory Rate 20 Blood Pressure [Left Arm] 173/84 Blood Pressure [Right Arm] 135/61 Blood Pressure 204/90 O2 Sat by Pulse Oximetry 93 - Physical Exam Oriented: Normal Eyes: Blurred Vision Ear: Normal Nose: Normal Throat: Normal Respiratory: Normal Cardiovascular: Normal. negative: S3, S4, Murmur : Normal Auscultation: Bowel Sounds: Normal Palpation: Normal Tenderness: Normal Skin: Rash Musculoskeletal: Normal Psychiatric: Normal Mood Description: Calm Affect: Normal Speech Pattern: Clear, Appropriate - Laboratory and Diagnostics Result Diagrams: 08/24/17 04:55 08/24/17 04:55 Labs: Laboratory WBC 8.3 X10^3/uL (3.6-10.0) 08/24/17 04:55 RBC 5.03 X10^6/uL (4.7-6.0) 08/24/17 04:55 Hgb 15.4 g/dL (13.5-18.0) 08/24/17 04:55 Hct 44.2 % (42.0-54.0) 08/24/17 04:55 MCV 87.7 fL (80.0-100.0) 08/24/17 04:55 MCH 30.7 pg (27.0-34.0) 08/24/17 04:55 MCHC 35.0 g/dL (33.0-35.0) 08/24/17 04:55 RDW 13.5 % (11.6-16.5) 08/24/17 04:55 Plt Count 210 X10^3/uL (150.0-450.0) 08/24/17 04:55 MPV 8.4 fL (7.4-11.0) 08/24/17 04:55 Neut % (Auto) 69.1 % (42.0-75.0) 08/24/17 04:55 Lymph % (Auto) 17.8 % (21.0-51.0) L 08/24/17 04:55 [place] % (Auto) 7.9 % (0.0-13.0) 08/24/17 04:55 Eos % (Auto) 4.4 % (0.9-2.9) H 08/24/17 04:55 Baso % (Auto) 0.8 % (0.2-1.0) 08/24/17 04:55 Neut # (Auto) 5.8 x10^3/uL (2.2-4.8) H 08/24/17 04:55 Lymph # (Auto) 1.5 X10^3/uL (1.3-2.9) 08/24/17 04:55 Henry # (Auto) 0.7 x10^3/uL (0.3-0.8) 08/24/17 04:55 Eos # (Auto) 0.4 x10^3/uL (0.0-0.2) H 08/24/17 04:55 Baso # (Auto) 0.1 X10^3/uL (0.0-0.1) 08/24/17 04:55 Absolute Nucleated RBC 0.2 /100WBC 08/24/17 04:55 INR Target Range - 08/21/17 10:20 INR 1.01 (0.8-1.3) 08/21/17 10:20 APTT 30.6 SECONDS (22.9-36.5) 08/21/17 10:20 PTT Comment - 08/21/17 10:20 Sodium 141 mmol/L (136-145) 08/24/17 04:55 Corrected Sodium 141 mmol/L (136-145) 08/24/17 04:55 Potassium 4.0 mmol/L (3.5-5.1) 08/24/17 04:55 Chloride 104 mmol/L (98-107) 08/24/17 04:55 Carbon Dioxide 28.2 mmol/L (21-32) 08/24/17 04:55 BUN 13 mg/dL (7-18) 08/24/17 04:55 Creatinine 0.94 mg/dL (0.70-1.30) 08/24/17 04:55 Est GFR (MDRD) Af Amer > 60 (>60) 08/24/17 04:55 Est GFR (MDRD) Non-Af > 60 (>60) 08/24/17 04:55 Glucose 116 mg/dL (65-99) H 08/24/17 04:55 POC Glucose (mg/dL) 141 mg/dL (65-99) H 08/23/17 20:55 Calcium 8.7 mg/dL (8.5-10.1) 08/24/17 04:55 Corrected Calcium TNP 08/24/17 04:55 Magnesium 2.1 mg/dL (1.7-2.9) 08/22/17 04:55 Total Bilirubin 0.30 mg/dL (0.2-1.0) 08/24/17 04:55 AST 25 Units/L (15-37) 08/24/17 04:55 ALT 41 Units/L (12-78) 08/24/17 04:55 Alkaline Phosphatase 90 Units/L (46-116) 08/24/17 04:55 Creatine Kinase 175 Units/L (39-308) 08/21/17 22:50 CK-MB (CK-2) 4.1 ng/mL (0-4.0) H 08/21/17 22:50 CK/CKMB % Calc 2.3 % (<4) 08/21/17 22:50 Troponin I < 0.02 ng/mL (0-1.5) 08/21/17 22:50 Total Protein 7.5 g/dL (6.4-8.2) 08/24/17 04:55 Albumin 3.4 g/dL (3.4-5.0) 08/24/17 04:55 Globulin 4.1 g/dL (2.5-4.5) 08/24/17 04:55 Albumin/Globulin Ratio 0.8 Ratio (1.1-2.1) L 08/24/17 04:55 Triglycerides 314 mg/dL (0-150) H 08/22/17 04:55 Cholesterol 171 mg/dL (0-200) 08/22/17 04:55 LDL Cholesterol, Calc 84 mg/dL (0-100) 08/22/17 04:55 HDL Cholesterol 24 mg/dL (40-60) L 08/22/17 04:55 Cholesterol/HDL Ratio 7.1 (0.0-5.0) H 08/22/17 04:55 Specimen Type Clean catch urine 08/21/17 12:18 Urine Color Yellow (YELLOW) 08/21/17 12:18 Urine Appearance Hazy (CLEAR) 08/21/17 12:18 Urine pH 7.0 (5.0 - 8.0) 08/21/17 12:18 Ur Specific [place] 1.010 (1.000-1.030) 08/21/17 12:18 Urine Protein 2+ (NEGATIVE) 08/21/17 12:18 Urine Glucose (UA) Negative (NEGATIVE) 08/21/17 12:18 Urine Ketones Negative (NEGATIVE) 08/21/17 12:18 Urine Occult Blood Negative (NEGATIVE) 08/21/17 12:18 Urine Nitrite Negative (NEGATIVE) 08/21/17 12:18 Urine Bilirubin Negative (NEGATIVE) 08/21/17 12:18 Urine Urobilinogen Normal (NORMAL) 08/21/17 12:18 Ur Leukocyte Esterase 1+ (NEGATIVE) 08/21/17 12:18 Urine RBC None seen /HPF (NONE SEEN) 08/21/17 12:18 Urine WBC 0-2 /HPF (NONE SEEN) 08/21/17 12:18 Ur Squamous Epith Cells Negative /HPF (NEGATIVE) 08/21/17 12:18 Urine Bacteria Negative /HPF (NEGATIVE) 08/21/17 12:18 Urine Mucus Few /HPF (NEGATIVE) 08/21/17 12:18 Ur Culture Indicated? No/not indicated 08/21/17 12:18 - Plan (1) Chest pain Status: Acute Qualifiers: Chest pain type: precordial pain Qualified Code(s): R07.2 - Precordial pain Plan: ADMIT, TELEMETRY, SERIAL CARDIAC ENZYMES AND EKG, CONTINUE TO MONITOR (2) Altered mental status Status: Acute Qualifiers: Altered mental status type: transient alteration of awareness Qualified Code(s): R40.4 - Transient alteration of awareness Plan: OBTAIN BRAIN MRI, MRA IN THE AM, CONTINUE TO MONITOR
== END 2017-08-24 12:39 | disposition home or self-care (01) ==
LOC: ER 10:18 → MED/SURG 13:08
PROVIDERS: ADMIT Internal Medicine; ATTEND Internal Medicine
DX: R40.4 Transient alteration of awareness (principal); R07.2 Precordial pain; G45.3 Amaurosis fugax; R51 Headache; Z86.73 Personal history of transient ischemic attack (TIA), and cerebral infarction without residual deficits; R94.31 Abnormal electrocardiogram [ECG] [EKG]
CPT/HCPCS: 36415; 70450; 70544; 70551; 71045; 80053; 80061; 81001; 82550; 82553; 83735; 84484; 85025; 85610; 85730; 93005; 93306; 93880; 94760; 96365; 96374; 96375; 99284; A4222; G0378; J2175; J2270; J2405

== ENCOUNTER → 2017-10-01 14:50 | Observation (INO) ==
[2017-09-27 15:13] LABS: BASOPHILS # (AUTO) 0.1 X10^3/uL (0.0-0.1); BASOPHILS % (AUTO) 0.7 % (0.2-1.0); EOSINOPHILS # (AUTO) 0.2 x10^3/uL (0.0-0.2); EOSINOPHILS % (AUTO) 2.1 % (0.9-2.9); HEMATOCRIT 43.4 % (42.0-54.0); LYMPHOCYTES # (AUTO) 1.2 X10^3/uL (1.3-2.9); LYMPHOCYTES % (AUTO) 12.5 % (21.0-51.0); MEAN CORPUSCULAR HEMOGLOBIN 30.6 pg (27.0-34.0); MEAN CORPUSCULAR HGB CONC 34.4 g/dL (33.0-35.0); MEAN CORPUSCULAR VOLUME 88.9 fL (80.0-100.0); MEAN PLATELET VOLUME 8.3 fL (7.4-11.0); MONOCYTES # (AUTO) 0.8 x10^3/uL (0.3-0.8); MONOCYTES % (AUTO) 7.7 % (0.0-13.0); NEUTROPHILS # (AUTO) 7.5 x10^3/uL (2.2-4.8); PLATELET COUNT 233 X10^3/uL (150.0-450.0); RED BLOOD COUNT 4.89 X10^6/uL (4.7-6.0); RED CELL DISTRIBUTION WIDTH 13.9 % (11.6-16.5); WHITE BLOOD COUNT 9.8 X10^3/uL (3.6-10.0)
[2017-09-27 15:19] LABS: ALANINE AMINOTRANSFERASE 45 Units/L (12-78); ALBUMIN 3.7 g/dL (3.4-5.0); ALKALINE PHOSPHATASE 90 Units/L (46-116); ASPARTATE AMINO TRANSFERASE 25 Units/L (15-37); BLOOD UREA NITROGEN 9 mg/dL (7-18); CALCIUM 9.1 mg/dL (8.5-10.1); CARBON DIOXIDE 28.9 mmol/L (21-32); CHLORIDE 103 mmol/L (98-107); CREATININE 0.94 mg/dL (0.70-1.30); SODIUM 140 mmol/L (136-145); TOTAL PROTEIN 7.9 g/dL (6.4-8.2); eGFR NON BLACK RACES > 60 (>60)
[2017-09-27] MEDS: LEVAQUIN PREMIX IV 750 MG 750 MG/150 ML BAG IV SCH (15:28)
[2017-09-27] MEDS: NS 1000 ML 1,000 ML IV SCH (15:28)
[2017-09-27] MEDS: ZOSYN VIAL 3.375 GRAMS 3.375 G in NS 100 ML IV + SPIKE MINIBAG* 100 ML IV SCH ×2 (15:29→21:06)
[2017-09-27] MEDS: DUONEB 0.5 MG/3 MG NEB SCH ×2 (16:05→21:47)
[2017-09-27 16:20] VITALS: BMI 30.5
[2017-09-27] MEDS: KLONOPIN TAB 0.5 MG PO SCH (21:06)
[2017-09-27] MEDS: SOLU-Medrol 125 MG VIAL IVP SCH (21:07)
--- NOTE | 2017-09-27 21:19 | DR.UPDATE ---
H&P Update History and Physical Update: History and Physical reviewed and patient examined. No changes noted to H&P. Changes noted: NO Yes with the following:
[2017-09-28] MEDS: DUONEB 0.5 MG/3 MG NEB SCH ×6 (01:57→20:56)
[2017-09-28] MEDS: NS 1000 ML 1,000 ML IV SCH ×3 (05:02→20:23)
[2017-09-28] MEDS: ZOSYN VIAL 3.375 GRAMS 3.375 G in NS 100 ML IV + SPIKE MINIBAG* 100 ML IV SCH ×3 (05:04→21:50)
[2017-09-28] MEDS: SOLU-Medrol 125 MG VIAL IVP SCH ×2 (05:04→14:01)
[2017-09-28 05:19] LABS: BASOPHILS % (AUTO) 0.1 % (0.2-1.0); HEMATOCRIT 43.4 % (42.0-54.0); HEMOGLOBIN 15.1 g/dL (13.5-18.0); LYMPHOCYTES # (AUTO) 0.4 X10^3/uL (1.3-2.9); MEAN CORPUSCULAR HGB CONC 34.7 g/dL (33.0-35.0); MEAN CORPUSCULAR VOLUME 89.4 fL (80.0-100.0); MEAN PLATELET VOLUME 8.3 fL (7.4-11.0); MONOCYTES # (AUTO) 0.1 x10^3/uL (0.3-0.8); MONOCYTES % (AUTO) 1.4 % (0.0-13.0); NEUTROPHILS # (AUTO) 9.5 x10^3/uL (2.2-4.8); NEUTROPHILS % (AUTO) 94.5 % (42.0-75.0); PLATELET COUNT 232 X10^3/uL (150.0-450.0); RED BLOOD COUNT 4.86 X10^6/uL (4.7-6.0); RED CELL DISTRIBUTION WIDTH 13.9 % (11.6-16.5)
[2017-09-28 05:26] LABS: ALANINE AMINOTRANSFERASE 47 Units/L (12-78); ALBUMIN 3.4 g/dL (3.4-5.0); ALKALINE PHOSPHATASE 102 Units/L (46-116); ASPARTATE AMINO TRANSFERASE 25 Units/L (15-37); BLOOD UREA NITROGEN 16 mg/dL (7-18); CALCIUM 9.3 mg/dL (8.5-10.1); CARBON DIOXIDE 23.7 mmol/L (21-32); CHLORIDE 104 mmol/L (98-107); COR NA(FOR HYPERGLY) 143 mmol/L (136-145); CREATININE 1.35 mg/dL (0.70-1.30); SODIUM 140 mmol/L (136-145); TOTAL PROTEIN 7.7 g/dL (6.4-8.2); eGFR NON BLACK RACES 59 (>60)
[2017-09-28] MEDS: HumuLIN R SUBCUT PRN ×3 (05:41→16:43)
[2017-09-28 05:43] LABS: GIANT PLATELET N; PLATELET MORPHOLOGY COMMENT NORMAL (NORMAL)
--- NOTE | 2017-09-28 06:20 | RAD ---
Examination: Portable AP chest History: SOB and cough Comparison reference 09/26/2017 Findings: Continued normal heart size with essentially clear lungs and pleural spaces. Impression: No significant change or acute chest disease. Reported By:
[2017-09-28] MEDS: LEVAQUIN PREMIX IV 750 MG 750 MG/150 ML BAG IV SCH (08:30)
[2017-09-28] MEDS: NORVASC TAB 10 MG PO SCH (08:30)
[2017-09-28] MEDS: ASPIRIN 81 MG CHEWTAB PO SCH (08:30)
[2017-09-28] MEDS: PLAVIX PO SCH (08:31)
[2017-09-28] MEDS: KLONOPIN TAB 0.5 MG PO SCH (21:50)
[2017-09-28] MEDS: SOLU-Medrol 40 MG VIAL IVP SCH (21:51)
[2017-09-29] MEDS: DUONEB 0.5 MG/3 MG NEB SCH ×6 (01:40→20:37)
[2017-09-29] MEDS: ZOSYN VIAL 3.375 GRAMS 3.375 G in NS 100 ML IV + SPIKE MINIBAG* 100 ML IV SCH ×3 (05:27→21:50)
[2017-09-29] MEDS: HumuLIN R SUBCUT PRN (05:27)
[2017-09-29] MEDS: SOLU-Medrol 40 MG VIAL IVP SCH ×3 (05:27→21:50)
[2017-09-29 05:40] LABS: BASOPHILS # (AUTO) 0.1 X10^3/uL (0.0-0.1); BASOPHILS % (AUTO) 0.3 % (0.2-1.0); EOSINOPHILS % (AUTO) 0.1 % (0.9-2.9); HEMATOCRIT 41.3 % (42.0-54.0); LYMPHOCYTES # (AUTO) 0.7 X10^3/uL (1.3-2.9); LYMPHOCYTES % (AUTO) 3.1 % (21.0-51.0); MEAN CORPUSCULAR HEMOGLOBIN 30.6 pg (27.0-34.0); MEAN CORPUSCULAR HGB CONC 33.9 g/dL (33.0-35.0); MEAN CORPUSCULAR VOLUME 90.1 fL (80.0-100.0); MEAN PLATELET VOLUME 8.6 fL (7.4-11.0); MONOCYTES # (AUTO) 0.7 x10^3/uL (0.3-0.8); MONOCYTES % (AUTO) 3.1 % (0.0-13.0); NEUTROPHILS # (AUTO) 20.8 x10^3/uL (2.2-4.8); NEUTROPHILS % (AUTO) 93.4 % (42.0-75.0); PLATELET COUNT 244 X10^3/uL (150.0-450.0); RED BLOOD COUNT 4.58 X10^6/uL (4.7-6.0); RED CELL DISTRIBUTION WIDTH 13.9 % (11.6-16.5); WHITE BLOOD COUNT 22.3 X10^3/uL (3.6-10.0)
[2017-09-29 05:44] LABS: ALANINE AMINOTRANSFERASE 42 Units/L (12-78); ALKALINE PHOSPHATASE 93 Units/L (46-116); ASPARTATE AMINO TRANSFERASE 19 Units/L (15-37); BLOOD UREA NITROGEN 17 mg/dL (7-18); CALCIUM 8.8 mg/dL (8.5-10.1); CARBON DIOXIDE 25.5 mmol/L (21-32); CHLORIDE 108 mmol/L (98-107); COR CA(FOR HYPOALB) 9.6 mg/dL (8.5-10.1); COR NA(FOR HYPERGLY) 145 mmol/L (136-145); CREATININE 1.31 mg/dL (0.70-1.30); SODIUM 142 mmol/L (136-145); TOTAL PROTEIN 6.8 g/dL (6.4-8.2); eGFR NON BLACK RACES > 60 (>60)
[2017-09-29 06:12] LABS: PLATELET MORPHOLOGY COMMENT NORMAL (NORMAL)
--- NOTE | 2017-09-29 07:22 | RAD ---
HISTORY: Shortness of breath Study: Single view of the chest. Comparison: 09/28/2017 Findings: The cardiomediastinal silhouette is normal. No focal consolidations, pleural effusions or pneumothora x. Osseous structures demonstrate no acute abnormality. IMPRESSION: 1. No acute cardiopulmonary process. Reported By:
[2017-09-29] MEDS: PEPCID 20 MG IV PREMIX* 20 MG/50 ML BAG IV SCH ×3 (07:58→20:35)
[2017-09-29] MEDS: PLAVIX PO SCH (08:49)
[2017-09-29] MEDS: NS 1000 ML 1,000 ML IV SCH ×2 (08:49→20:34)
[2017-09-29] MEDS: ASPIRIN 81 MG CHEWTAB PO SCH (08:49)
[2017-09-29] MEDS: NORVASC TAB 10 MG PO SCH (08:49)
[2017-09-29] MEDS: LEVAQUIN PREMIX IV 750 MG 750 MG/150 ML BAG IV SCH (08:49)
[2017-09-29] MEDS: PROTONIX INJ 40 MG VIAL IVP SCH ×2 (10:05→20:35)
[2017-09-29] MEDS: ZESTRIL TAB 20 MG PO SCH (10:05)
[2017-09-29] MEDS: HYDROCHLOROTHIAZIDE 12.5 MG CAP PO SCH (10:05)
[2017-09-29] MEDS: ZETIA TAB 10 MG PO SCH (10:05)
--- NOTE | 2017-09-29 19:28 | PCM.PROG ---
Progress Note - Progress Note for Day of Date: 09/28/17 - Subjective Subjective: WAS ADMITTED FOR ACUTE BRONCHITIS, AND COPD EXACERBATION. TODAY, HE IS ALERT AND ORIENTED, LYING IN BED ON MORNING ROUNDS. HE CONTINUES WITH COUGH AND SHORTNESS OF BREATH. ON EXAMINATION, HE IS NOTED WITH SCATTERED WHEEZING, DIMINISHED THROUGHOUT. HIS VITALS THIS MORNING ARE 97.8 -91-20-96%-175/96. LABS WERE OBTAINED. ABNORMAL LAB VALUES INCLUDE THE FOLLOWING : CREATININE 1.35, GLUCOSE 232. A CHEST XRAY WAS OBTAINED AND REVEALED NO SIGNIFICANT CHANGE OR ACUTE CHEST DISEASE. BLOOD CULTURES AND SPUTUM CULTURES ARE PENDING. TODAY, WE WILL CONTINUE WITH IV ANTIBIOTICS, SOLU-MEDROL, RESPIRATORY TREATMENTS, AND SUPPLEMENTAL OXYGEN. OTHERWISE, WE WILL FOLLOW UP WITH AM LABS AND CHEST XRAY AND CONTINUE TO MONITOR PATIENT. - Past Medical Family Social History Past Med/Fam/Surg Hx: No changes since H&P Allergies: Allergies morphine Allergy (Verified 08/21/17 09:44) atorvastatin Adverse Reaction (Verified 08/22/17 16:20) rosuvastatin [From Crestor] Adverse Reaction (Verified 08/22/17 16:20) Eqhckfj-Axw-Zkl Reductase Inhibitor Adverse Reaction (Verified 08/22/17 16:20) - Review of Systems ROS: No change since H&P - Vital Signs and I&O's Vital Signs: Temperature 98 F Pulse Rate [Left Brachial] 92 Pulse Rate 99 Respiratory Rate 20 Blood Pressure [Left Arm] 147/78 Blood Pressure [Right Arm] 135/61 Blood Pressure 173/84 O2 Sat by Pulse Oximetry 97 Intake and Output: Intake & Output 09/27/17 09/28/17 09/29/17 09/30/17 11:59 11:59 11:59 11:59 Intake Total 2583 / 2583 2280 / 2280 800 / 800 Output Total 0 / 0 Balance 2583 / 2583 2280 / 2280 800 / 800 - Physical Exam Oriented: Normal Eyes: Normal Ear: Normal Nose: Normal Throat: Normal Respiratory: Diminished, Wheezes Cardiovascular: Normal : Normal Auscultation: Bowel Sounds: Normal Palpation: Normal Tenderness: Normal Skin: Normal Musculoskeletal: Normal Psychiatric: Normal Mood Description: Calm Affect: Normal Speech Pattern: Clear, Appropriate - Laboratory and Diagnostics Result Diagrams: 09/29/17 04:50 09/29/17 04:50 Labs: 09/27/17 14:51 Blood Blood Culture - Preliminary 09/27/17 14:44 Blood Blood Culture - Preliminary 09/27/17 15:32 Sputum - Expectorated Sputum Sputum Culture - Final 09/27/17 15:32 Sputum - Expectorated Sputum - Final Laboratory WBC 22.3 X10^3/uL (3.6-10.0) H D 09/29/17 04:50 RBC 4.58 X10^6/uL (4.7-6.0) L 09/29/17 04:50 Hgb 14.0 g/dL (13.5-18.0) 09/29/17 04:50 Hct 41.3 % (42.0-54.0) L 09/29/17 04:50 MCV 90.1 fL (80.0-100.0) 09/29/17 04:50 MCH 30.6 pg (27.0-34.0) 09/29/17 04:50 MCHC 33.9 g/dL (33.0-35.0) 09/29/17 04:50 RDW 13.9 % (11.6-16.5) 09/29/17 04:50 Plt Count 244 X10^3/uL (150.0-450.0) 09/29/17 04:50 Plt Count Comment Adequate (ADEQUATE) 09/29/17 04:50 MPV 8.6 fL (7.4-11.0) 09/29/17 04:50 Neut % (Auto) 93.4 % (42.0-75.0) H 09/29/17 04:50 Lymph % (Auto) 3.1 % (21.0-51.0) L 09/29/17 04:50 [place] % (Auto) 3.1 % (0.0-13.0) 09/29/17 04:50 Eos % (Auto) 0.1 % (0.9-2.9) L 09/29/17 04:50 Baso % (Auto) 0.3 % (0.2-1.0) 09/29/17 04:50 Neut # (Auto) 20.8 x10^3/uL (2.2-4.8) H 09/29/17 04:50 Lymph # (Auto) 0.7 X10^3/uL (1.3-2.9) L 09/29/17 04:50 [place] # (Auto) 0.7 x10^3/uL (0.3-0.8) 09/29/17 04:50 Eos # (Auto) 0.0 x10^3/uL (0.0-0.2) 09/29/17 04:50 Baso # (Auto) 0.1 X10^3/uL (0.0-0.1) 09/29/17 04:50 Absolute Nucleated RBC 0.1 /100WBC 09/29/17 04:50 Total Counted 100 09/29/17 04:50 Neutrophils % (Manual) 89 % (39-76) H 09/29/17 04:50 Lymphocytes % (Manual) 7 % (13-43) L 09/29/17 04:50 Monocytes % (Manual) 4 % (4-9) 09/29/17 04:50 Giant Platelets N 09/28/17 04:35 Plt Morphology Comment Normal (NORMAL) 09/29/17 04:50 RBC Morphology Normal (NORMAL) 09/29/17 04:50 Sodium 142 mmol/L (136-145) 09/29/17 04:50 Corrected Sodium 145 mmol/L (136-145) 09/29/17 04:50 Potassium 4.4 mmol/L (3.5-5.1) 09/29/17 04:50 Chloride 108 mmol/L (98-107) H 09/29/17 04:50 Carbon Dioxide 25.5 mmol/L (21-32) 09/29/17 04:50 BUN 17 mg/dL (7-18) 09/29/17 04:50 Creatinine 1.31 mg/dL (0.70-1.30) H 09/29/17 04:50 Est GFR (MDRD) Af Amer > 60 (>60) 09/29/17 04:50 Est GFR (MDRD) Non-Af > 60 (>60) 09/29/17 04:50 Glucose 216 mg/dL (65-99) H 09/29/17 04:50 POC Glucose (mg/dL) 159 mg/dL (65-99) H 09/29/17 16:19 Calcium 8.8 mg/dL (8.5-10.1) 09/29/17 04:50 Corrected Calcium 9.6 mg/dL (8.5-10.1) 09/29/17 04:50 Total Bilirubin 0.10 mg/dL (0.2-1.0) L 09/29/17 04:50 AST 19 Units/L (15-37) 09/29/17 04:50 ALT 42 Units/L (12-78) 09/29/17 04:50 Alkaline Phosphatase 93 Units/L (46-116) 09/29/17 04:50 Total Protein 6.8 g/dL (6.4-8.2) 09/29/17 04:50 Albumin 3.0 g/dL (3.4-5.0) L 09/29/17 04:50 Globulin 3.8 g/dL (2.5-4.5) 09/29/17 04:50 Albumin/Globulin Ratio 0.8 Ratio (1.1-2.1) L 09/29/17 04:50 - Plan (1) COPD exacerbation Status: Acute Plan: LEVAQUIN, ZOSYN, SUPPLEMENTAL OXYGEN, RESPIRATORY TREATMENTS, CONTINUE TO MONITOR (2) Acute bronchitis Status: Acute Qualifiers: Bronchitis organism: unspecified organism Qualified Code(s): J20.9 - Acute bronchitis, unspecified Plan: LEVAQUIN, ZOSYN, SUPPLEMENTAL OXYGEN, RESPIRATORY TREATMENTS, CONTINUE TO MONITOR
--- NOTE | 2017-09-29 19:36 | PCM.PROG ---
Progress Note - Progress Note for Day of Date: 09/29/17 - Subjective Subjective: WAS ADMITTED FOR ACUTE BRONCHITIS, AND COPD EXACERBATION. TODAY, HE IS ALERT AND ORIENTED, LYING IN BED ON MORNING ROUNDS. HE CONTINUES WITH COUGH AND SHORTNESS OF BREATH, SLIGHTLY IMPROVED SINCE YESTERDAY. ON EXAMINATION, HE IS NOTED WITH SCATTERED WHEEZING, DIMINISHED THROUGHOUT. HIS VITALS THIS MORNING ARE 98.6-93-20-95%-143/79. LABS WERE OBTAINED. ABNORMAL LAB VALUES INCLUDE THE FOLLOWING: WBC INCREASED FROM 10.0 TO 22.3. LIKELY DUE TO THE STEROIDS. RBC 4.58, HCT 41.3, CHLORIDE 108, CREATININ 1.31, GLUCOOSE 216, TOTAL BILIRUBIN 0.10, ALBUMIN 3.0. A CHEST XRAY WAS OBTAINED AND REVEALED NO SIGNIFICANT CHANGE OR ACUTE CHEST DISEASE. BLOOD CULTURES AND SPUTUM CULTURES ARE PENDING. TODAY, WE WILL CONTINUE WITH IV ANTIBIOTICS, SOLU-MEDROL, RESPIRATORY TREATMENTS, AND SUPPLEMENTAL OXYGEN. OTHERWISE, WE WILL FOLLOW UP WITH AM LABS AND CHEST XRAY AND CONTINUE TO MONITOR PATIENT. - Past Medical Family Social History Past Med/Fam/Surg Hx: No changes since H&P Allergies: Allergies morphine Allergy (Verified 08/21/17 09:44) atorvastatin Adverse Reaction (Verified 08/22/17 16:20) rosuvastatin [From Crestor] Adverse Reaction (Verified 08/22/17 16:20) Pebpczu-Rfh-Kmp Reductase Inhibitor Adverse Reaction (Verified 08/22/17 16:20) - Review of Systems ROS: No change since H&P - Vital Signs and I&O's Vital Signs: Temperature 98 F Pulse Rate [Left Brachial] 92 Pulse Rate 99 Respiratory Rate 20 Blood Pressure [Left Arm] 147/78 Blood Pressure [Right Arm] 135/61 Blood Pressure 173/84 O2 Sat by Pulse Oximetry 97 Intake and Output: Intake & Output 09/27/17 09/28/17 09/29/17 09/30/17 11:59 11:59 11:59 11:59 Intake Total 2583 / 2583 2280 / 2280 800 / 800 Output Total 0 / 0 Balance 2583 / 2583 2280 / 2280 800 / 800 - Physical Exam Oriented: Normal Eyes: Normal Ear: Normal Nose: Normal Throat: Normal Respiratory: Diminished, Wheezes Cardiovascular: Normal : Normal Auscultation: Bowel Sounds: Normal Palpation: Normal Tenderness: Normal Skin: Normal Musculoskeletal: Normal Psychiatric: Normal Mood Description: Calm Affect: Normal Speech Pattern: Clear, Appropriate - Laboratory and Diagnostics Result Diagrams: 09/29/17 04:50 09/29/17 04:50 Labs: 09/27/17 14:51 Blood Blood Culture - Preliminary 09/27/17 14:44 Blood Blood Culture - Preliminary 09/27/17 15:32 Sputum - Expectorated Sputum Sputum Culture - Final 09/27/17 15:32 Sputum - Expectorated Sputum - Final Laboratory WBC 22.3 X10^3/uL (3.6-10.0) H D 09/29/17 04:50 RBC 4.58 X10^6/uL (4.7-6.0) L 09/29/17 04:50 Hgb 14.0 g/dL (13.5-18.0) 09/29/17 04:50 Hct 41.3 % (42.0-54.0) L 09/29/17 04:50 MCV 90.1 fL (80.0-100.0) 09/29/17 04:50 MCH 30.6 pg (27.0-34.0) 09/29/17 04:50 MCHC 33.9 g/dL (33.0-35.0) 09/29/17 04:50 RDW 13.9 % (11.6-16.5) 09/29/17 04:50 Plt Count 244 X10^3/uL (150.0-450.0) 09/29/17 04:50 Plt Count Comment Adequate (ADEQUATE) 09/29/17 04:50 MPV 8.6 fL (7.4-11.0) 09/29/17 04:50 Neut % (Auto) 93.4 % (42.0-75.0) H 09/29/17 04:50 Lymph % (Auto) 3.1 % (21.0-51.0) L 09/29/17 04:50 [place] % (Auto) 3.1 % (0.0-13.0) 09/29/17 04:50 Eos % (Auto) 0.1 % (0.9-2.9) L 09/29/17 04:50 Baso % (Auto) 0.3 % (0.2-1.0) 09/29/17 04:50 Neut # (Auto) 20.8 x10^3/uL (2.2-4.8) H 09/29/17 04:50 Lymph # (Auto) 0.7 X10^3/uL (1.3-2.9) L 09/29/17 04:50 [place] # (Auto) 0.7 x10^3/uL (0.3-0.8) 09/29/17 04:50 Eos # (Auto) 0.0 x10^3/uL (0.0-0.2) 09/29/17 04:50 Baso # (Auto) 0.1 X10^3/uL (0.0-0.1) 09/29/17 04:50 Absolute Nucleated RBC 0.1 /100WBC 09/29/17 04:50 Total Counted 100 09/29/17 04:50 Neutrophils % (Manual) 89 % (39-76) H 09/29/17 04:50 Lymphocytes % (Manual) 7 % (13-43) L 09/29/17 04:50 Monocytes % (Manual) 4 % (4-9) 09/29/17 04:50 Giant Platelets N 09/28/17 04:35 Plt Morphology Comment Normal (NORMAL) 09/29/17 04:50 RBC Morphology Normal (NORMAL) 09/29/17 04:50 Sodium 142 mmol/L (136-145) 09/29/17 04:50 Corrected Sodium 145 mmol/L (136-145) 09/29/17 04:50 Potassium 4.4 mmol/L (3.5-5.1) 09/29/17 04:50 Chloride 108 mmol/L (98-107) H 09/29/17 04:50 Carbon Dioxide 25.5 mmol/L (21-32) 09/29/17 04:50 BUN 17 mg/dL (7-18) 09/29/17 04:50 Creatinine 1.31 mg/dL (0.70-1.30) H 09/29/17 04:50 Est GFR (MDRD) Af Amer > 60 (>60) 09/29/17 04:50 Est GFR (MDRD) Non-Af > 60 (>60) 09/29/17 04:50 Glucose 216 mg/dL (65-99) H 09/29/17 04:50 POC Glucose (mg/dL) 159 mg/dL (65-99) H 09/29/17 16:19 Calcium 8.8 mg/dL (8.5-10.1) 09/29/17 04:50 Corrected Calcium 9.6 mg/dL (8.5-10.1) 09/29/17 04:50 Total Bilirubin 0.10 mg/dL (0.2-1.0) L 09/29/17 04:50 AST 19 Units/L (15-37) 09/29/17 04:50 ALT 42 Units/L (12-78) 09/29/17 04:50 Alkaline Phosphatase 93 Units/L (46-116) 09/29/17 04:50 Total Protein 6.8 g/dL (6.4-8.2) 09/29/17 04:50 Albumin 3.0 g/dL (3.4-5.0) L 09/29/17 04:50 Globulin 3.8 g/dL (2.5-4.5) 09/29/17 04:50 Albumin/Globulin Ratio 0.8 Ratio (1.1-2.1) L 09/29/17 04:50 - Plan (1) COPD exacerbation Status: Acute Plan: LEVAQUIN, ZOSYN, SUPPLEMENTAL OXYGEN, RESPIRATORY TREATMENTS, CONTINUE TO MONITOR (2) Acute bronchitis Status: Acute Qualifiers: Bronchitis organism: unspecified organism Qualified Code(s): J20.9 - Acute bronchitis, unspecified Plan: LEVAQUIN, ZOSYN, SUPPLEMENTAL OXYGEN, RESPIRATORY TREATMENTS, CONTINUE TO MONITOR
[2017-09-29] MEDS: KLONOPIN TAB 0.5 MG PO SCH (20:34)
[2017-09-29] MEDS: XANAX PO SCH (20:37)
[2017-09-30] MEDS: DUONEB 0.5 MG/3 MG NEB SCH ×6 (00:48→20:52)
[2017-09-30] MEDS: NS 1000 ML 1,000 ML IV SCH ×4 (02:05→21:35)
[2017-09-30 05:16] LABS: BASOPHILS % (AUTO) 0.1 % (0.2-1.0); HEMATOCRIT 40.6 % (42.0-54.0); HEMOGLOBIN 13.9 g/dL (13.5-18.0); LYMPHOCYTES # (AUTO) 0.9 X10^3/uL (1.3-2.9); LYMPHOCYTES % (AUTO) 4.5 % (21.0-51.0); MEAN CORPUSCULAR HEMOGLOBIN 30.9 pg (27.0-34.0); MEAN CORPUSCULAR HGB CONC 34.2 g/dL (33.0-35.0); MEAN CORPUSCULAR VOLUME 90.3 fL (80.0-100.0); MEAN PLATELET VOLUME 8.2 fL (7.4-11.0); MONOCYTES # (AUTO) 0.6 x10^3/uL (0.3-0.8); MONOCYTES % (AUTO) 2.8 % (0.0-13.0); NEUTROPHILS # (AUTO) 18.1 x10^3/uL (2.2-4.8); NEUTROPHILS % (AUTO) 92.6 % (42.0-75.0); PLATELET COUNT 239 X10^3/uL (150.0-450.0); RED BLOOD COUNT 4.49 X10^6/uL (4.7-6.0); RED CELL DISTRIBUTION WIDTH 13.9 % (11.6-16.5); WHITE BLOOD COUNT 19.6 X10^3/uL (3.6-10.0)
[2017-09-30] MEDS: ZOSYN VIAL 3.375 GRAMS 3.375 G in NS 100 ML IV + SPIKE MINIBAG* 100 ML IV SCH ×3 (05:17→21:28)
[2017-09-30] MEDS: SOLU-Medrol 40 MG VIAL IVP SCH ×3 (05:17→21:28)
[2017-09-30 05:34] LABS: ALANINE AMINOTRANSFERASE 82 Units/L (12-78); ALBUMIN 2.9 g/dL (3.4-5.0); ALKALINE PHOSPHATASE 75 Units/L (46-116); ASPARTATE AMINO TRANSFERASE 38 Units/L (15-37); BLOOD UREA NITROGEN 16 mg/dL (7-18); CALCIUM 8.6 mg/dL (8.5-10.1); CARBON DIOXIDE 25.2 mmol/L (21-32); CHLORIDE 107 mmol/L (98-107); COR CA(FOR HYPOALB) 9.5 mg/dL (8.5-10.1); COR NA(FOR HYPERGLY) 143 mmol/L (136-145); CREATININE 0.96 mg/dL (0.70-1.30); SODIUM 141 mmol/L (136-145); TOTAL PROTEIN 6.5 g/dL (6.4-8.2); eGFR NON BLACK RACES > 60 (>60)
[2017-09-30 06:20] LABS: PLATELET MORPHOLOGY COMMENT NORMAL (NORMAL)
--- NOTE | 2017-09-30 06:54 | RAD ---
HISTORY: Shortness of breath Study: Chest AP portable Comparison: 09/29/2017, 09/28/2017 Findings: The heart is upper limits normal in size. The jackson are normal. The lung hanson are clear. No pleural effusions are identified. The bony thorax is unremarkable. IMPRESSION: No acute cardiopulmonary abnormality identified Reported By:
[2017-09-30] MEDS: ASPIRIN 81 MG CHEWTAB PO SCH (08:51)
[2017-09-30] MEDS: PLAVIX PO SCH (08:52)
[2017-09-30] MEDS: PROTONIX INJ 40 MG VIAL IVP SCH ×2 (08:53→21:28)
[2017-09-30] MEDS: ZETIA TAB 10 MG PO SCH (08:53)
[2017-09-30] MEDS: ZESTRIL TAB 20 MG PO SCH (08:53)
[2017-09-30] MEDS: HYDROCHLOROTHIAZIDE 12.5 MG CAP PO SCH (08:53)
[2017-09-30] MEDS: NORVASC TAB 10 MG PO SCH (08:53)
[2017-09-30] MEDS: PEPCID 20 MG IV PREMIX* 20 MG/50 ML BAG IV SCH ×2 (08:54→21:28)
[2017-09-30] MEDS: LEVAQUIN PREMIX IV 750 MG 750 MG/150 ML BAG IV SCH (10:00)
[2017-09-30] MEDS: LEVSIN/MAALOX/LIDOC VISC PO SCH ×3 (13:46→21:27)
[2017-09-30] MEDS: KLONOPIN TAB 0.5 MG PO SCH (21:27)
[2017-09-30] MEDS: XANAX PO SCH (21:27)
[2017-10-01] MEDS: DUONEB 0.5 MG/3 MG NEB SCH ×4 (00:51→12:06)
[2017-10-01 05:26] LABS: BASOPHILS % (AUTO) 0.1 % (0.2-1.0); HEMATOCRIT 40.9 % (42.0-54.0); HEMOGLOBIN 14.1 g/dL (13.5-18.0); LYMPHOCYTES # (AUTO) 0.8 X10^3/uL (1.3-2.9); LYMPHOCYTES % (AUTO) 5.8 % (21.0-51.0); MEAN CORPUSCULAR HEMOGLOBIN 31.1 pg (27.0-34.0); MEAN CORPUSCULAR HGB CONC 34.5 g/dL (33.0-35.0); MEAN CORPUSCULAR VOLUME 89.9 fL (80.0-100.0); MEAN PLATELET VOLUME 8.2 fL (7.4-11.0); MONOCYTES # (AUTO) 0.5 x10^3/uL (0.3-0.8); MONOCYTES % (AUTO) 3.5 % (0.0-13.0); NEUTROPHILS # (AUTO) 11.9 x10^3/uL (2.2-4.8); NEUTROPHILS % (AUTO) 90.6 % (42.0-75.0); PLATELET COUNT 234 X10^3/uL (150.0-450.0); RED BLOOD COUNT 4.55 X10^6/uL (4.7-6.0); RED CELL DISTRIBUTION WIDTH 14.1 % (11.6-16.5); WHITE BLOOD COUNT 13.2 X10^3/uL (3.6-10.0)
[2017-10-01 05:41] LABS: ALANINE AMINOTRANSFERASE 169 Units/L (12-78); ALBUMIN 2.9 g/dL (3.4-5.0); ALKALINE PHOSPHATASE 86 Units/L (46-116); ASPARTATE AMINO TRANSFERASE 55 Units/L (15-37); BLOOD UREA NITROGEN 17 mg/dL (7-18); CALCIUM 8.5 mg/dL (8.5-10.1); CARBON DIOXIDE 27.2 mmol/L (21-32); CHLORIDE 106 mmol/L (98-107); COR CA(FOR HYPOALB) 9.4 mg/dL (8.5-10.1); COR NA(FOR HYPERGLY) 143 mmol/L (136-145); CREATININE 1.04 mg/dL (0.70-1.30); SODIUM 141 mmol/L (136-145); TOTAL PROTEIN 6.5 g/dL (6.4-8.2); eGFR NON BLACK RACES > 60 (>60)
[2017-10-01] MEDS: SOLU-Medrol 40 MG VIAL IVP SCH ×2 (05:55→14:00)
[2017-10-01] MEDS: ZOSYN VIAL 3.375 GRAMS 3.375 G in NS 100 ML IV + SPIKE MINIBAG* 100 ML IV SCH ×2 (05:55→14:00)
[2017-10-01] MEDS: NS 1000 ML 1,000 ML IV SCH ×2 (05:59→11:07)
[2017-10-01 06:08] LABS: PLATELET MORPHOLOGY COMMENT NORMAL (NORMAL)
[2017-10-01] MEDS: LEVAQUIN PREMIX IV 750 MG 750 MG/150 ML BAG IV SCH (09:32)
[2017-10-01] MEDS: PEPCID 20 MG IV PREMIX* 20 MG/50 ML BAG IV SCH (09:32)
[2017-10-01] MEDS: PLAVIX PO SCH (09:33)
[2017-10-01] MEDS: ZETIA TAB 10 MG PO SCH (09:33)
[2017-10-01] MEDS: ASPIRIN 81 MG CHEWTAB PO SCH (09:33)
[2017-10-01] MEDS: PROTONIX INJ 40 MG VIAL IVP SCH (09:33)
[2017-10-01] MEDS: ZESTRIL TAB 20 MG PO SCH (09:33)
[2017-10-01] MEDS: NORVASC TAB 10 MG PO SCH (09:33)
[2017-10-01] MEDS: HYDROCHLOROTHIAZIDE 12.5 MG CAP PO SCH (09:33)
[2017-10-01] MEDS: LEVSIN/MAALOX/LIDOC VISC PO SCH ×2 (09:33→13:59)
[2017-10-01 12:05] VITALS: BP 170/90
[~2017-10-01 14:50] MED LIST: DUONEB 0.5 MG/3 MG ONE; MAALOX or MYLANTA PO PRN; NITROSTAT SL PRN; SOLU-Medrol 125 MG VIAL IVP ONE; SOLU-Medrol 40 MG VIAL IVP SCH; TUSSIONEX PENNKINETIC SUSP PO PRN; ZESTRIL TAB 20 MG ONE; ZOFRAN INJ 4 MG VIAL IVP PRN
--- NOTE | 2017-10-22 01:09 | DR.CARTERD ---
- Discharge Summary for: Discharge Summary for Date of:: 10/01/17 - Admission Date Date of Admission: 09/27/17 - Admission Diagnoses Admission Diagnosis: (1) COPD exacerbation (2) Acute bronchitis - Discharge Date Discharge Date: 10/01/17 - Discharge Diagnoses Discharge Diagnosis: (1) COPD exacerbation (2) Acute bronchitis - Hospital Course Hospital Course: Day one, Mr. Rudolph presented to the [facility] as a direct admit from our office for COPD exacerbation and acute bronchitis. Patient noted to have expiratory wheezes and coarse breath sounds on auscultation. A productive intermittent cough was noted. A chest x-ray was performed for shortness of breath and cough and reported normal heart size with essentially clear lungs and pleural spaces; no significant change or acute chest disease. Patient started on Duoneb [place] 0.5 MG/3 MG 1 EA NEB Q4H, Levaquin 750 MG IV Daily and Zosyn 3.375 GM IV TID for antibiotic therapy, Pepcid 20 MG IV Q12, Solu- Medrol 80 MG IVP Q8, Protonix 40 MG IVP BID, and Tussionex 5 ml po q12 PRN for cough. We continued to monitor. Abnormal Labs: A/G ratio 0.9, Glucose 140. On day two, he continued with cough and shortness of breath. On examination, lungs were noted with scattered wheezing and diminished throughout. Vitals were 97.8-91-20-96%-175/96. A chest xray was obtained and reported no significant change or acute chest disease. We continued with IV antibiotics, Solumedrol, respiratory treatments, and supplemental oxygen. On day three, patient noted with continued shortness of breath and cough. On auscultation of lung hanson patient noted with scattered wheezing and diminished breath sounds throughout. Patient noted with an increase in white blood cell count 10.0 to 22.3; however, patient was on IV steroids which were felt to the be cause of the increase. We continued treatment. Day four, patient continued with shortness of breath. Patient reported symptoms were slowly improving. On auscultation, lungs were noted with scattered wheezing and diminished breath sounds. We continued treatment and monitored. Day five, patient was doing better. He was noted with no acute distress. He denied shortness of breath. Vital signs stable. Labs wnl. Final blood and sputum cultures negative. We planned for discharge. Instructions for medications and follow up were discussed with patient and family, both voiced understanding. Patient discharged home in stable condition with family. - Discharge Medications Discharge Medications: Home Medication List amlodipine 10 mg PO DAILY 09/28/17 [History] ezetimibe 10 mg PO DAILY 09/28/17 [History] pantoprazole [Protonix] 40 mg PO BID #60 tab 10/01/17 [Rx] Prescriptions: pantoprazole [Protonix] Henry Luna alprazolam 1 - 2 tab PO HS PRN 08/21/17 clopidogrel [Plavix] 75 mg PO DAILY #30 tab 08/24/17 aspirin [Aspir-Low] 81 mg PO DAILY 10/10/17 budesonide-formoterol [Symbicort] 1 inh INHALATION BID 10/10/17 clonazepam 0.5 - 1 tab PO PRN PRN 10/10/17 diphenoxylate-atropine 1 - 2 tab PO TID PRN 10/10/17 ondansetron [Zofran ODT] 8 mg PO TID PRN 10/10/17 lisinopril-hydrochlorothiazide 1 tab PO DAILY 10/11/17 ciprofloxacin HCl [Cipro] 500 mg PO BID #20 tab 10/13/17 docusate sodium [Colace] 100 mg PO DAILY #30 cap 10/13/17 magnesium hydroxide [Milk of Magnesia] 10 ml PO QID PRN #1 bottle 10/13/17 polyethylene glycol 3350 [Miralax] 17 g PO DAILY #1 bottle 10/13/17 - Discharge Disposition Discharge Disposition: Patient is to follow up in our office in one week.
--- NOTE | 2017-11-17 18:23 | PCM.PROG ---
Progress Note - Progress Note for Day of Date of Exam: 09/30/17 - Subjective Subjective: WAS ADMITTED FOR ACUTE BRONCHITIS, AND COPD EXACERBATION. TODAY, HE IS ALERT AND ORIENTED, LYING IN BED ON MORNING ROUNDS. HE CONTINUES WITH COUGH AND SHORTNESS OF BREATH. HE ALSO REPORTS MILD, EPIGASTRIC PAIN. ON EXAMINATION, BILATERAL LUNGS ARE NOTED WITH SCATTERED WHEEZING, DIMINISHED THROUGHOUT. HIS VITALS THIS MORNING ARE 97.6-83-20-94%-168/ 81. LABS WERE OBTAINED. ABNORMAL LAB VALUES INCLUDE THE FOLLOWING: WBC INCREASED FROM 10.0 TO 22.3. LIKELY DUE TO THE STEROIDS. WBC 19.6, RBC 4.49, HCT 40.6, GLUCOSE 167, AST 38, ALT 82, ALBUMIN 2.9. A CHEST XRAY WAS OBTAINED AND REVEALED NO ACUTE CARDIOPULMONARY ABNORMALITY IDENTIFIED. BLOOD CULTURES AND SPUTUM CULTURES ARE PENDING. TODAY, WE WILL CONTINUE WITH IV ANTIBIOTICS, SOLU-MEDROL, RESPIRATORY TREATMENTS, AND SUPPLEMENTAL OXYGEN. WE WILL START GI COCKTAIL AND OBTAIN AN ABG. OTHERWISE, WE WILL FOLLOW UP WITH AM LABS AND CHEST XRAY AND CONTINUE TO MONITOR PATIENT. - Past Medical Family Social History Past Med/Fam/Surg Hx: No changes since H&P Allergies: Allergies morphine Allergy (Verified 08/21/17 09:44) atorvastatin Adverse Reaction (Verified 08/22/17 16:20) rosuvastatin [From Crestor] Adverse Reaction (Verified 08/22/17 16:20) [id number] Reductase Inhibitor Adverse Reaction (Verified 08/22/17 16:20) - Review of Systems ROS: No change since H&P - Vital Signs and I&O's Vital Signs: Temperature 98.1 F Pulse Rate [Right Brachial] 82 Pulse Rate [Left Brachial] 71 Pulse Rate 70 Respiratory Rate 20 Blood Pressure [Left Arm] 176/94 Blood Pressure [Right Arm] 170/90 Blood Pressure 173/84 O2 Sat by Pulse Oximetry 95 - Physical Exam Oriented: Normal Eyes: Normal Ear: Normal Nose: Normal Throat: Normal Respiratory: Diminished, Wheezes Cardiovascular: Normal : Normal Auscultation: Bowel Sounds: Normal Palpation: Normal Tenderness: Epigastric, Mild Skin: Normal Musculoskeletal: Normal Psychiatric: Normal Mood Description: Calm Affect: Normal Speech Pattern: Clear, Appropriate - Laboratory and Diagnostics Result Diagrams: 10/01/17 04:47 10/01/17 04:47 Labs: 09/27/17 14:51 Blood Blood Culture - Final 09/27/17 14:44 Blood Blood Culture - Final 09/27/17 15:32 Sputum - Expectorated Sputum Sputum Culture - Final 09/27/17 15:32 Sputum - Expectorated Sputum - Final Laboratory WBC 13.2 X10^3/uL (3.6-10.0) H 10/01/17 04:47 RBC 4.55 X10^6/uL (4.7-6.0) L 10/01/17 04:47 Hgb 14.1 g/dL (13.5-18.0) 10/01/17 04:47 Hct 40.9 % (42.0-54.0) L 10/01/17 04:47 MCV 89.9 fL (80.0-100.0) 10/01/17 04:47 MCH 31.1 pg (27.0-34.0) 10/01/17 04:47 MCHC 34.5 g/dL (33.0-35.0) 10/01/17 04:47 RDW 14.1 % (11.6-16.5) 10/01/17 04:47 Plt Count 234 X10^3/uL (150.0-450.0) 10/01/17 04:47 Plt Count Comment Adequate (ADEQUATE) 10/01/17 04:47 MPV 8.2 fL (7.4-11.0) 10/01/17 04:47 Neut % (Auto) 90.6 % (42.0-75.0) H 10/01/17 04:47 Lymph % (Auto) 5.8 % (21.0-51.0) L 10/01/17 04:47 [place] % (Auto) 3.5 % (0.0-13.0) 10/01/17 04:47 Eos % (Auto) 0.0 % (0.9-2.9) L 10/01/17 04:47 Baso % (Auto) 0.1 % (0.2-1.0) L 10/01/17 04:47 Neut # (Auto) 11.9 x10^3/uL (2.2-4.8) H 10/01/17 04:47 Lymph # (Auto) 0.8 X10^3/uL (1.3-2.9) L 10/01/17 04:47 [place] # (Auto) 0.5 x10^3/uL (0.3-0.8) 10/01/17 04:47 Eos # (Auto) 0.0 x10^3/uL (0.0-0.2) 10/01/17 04:47 Baso # (Auto) 0.0 X10^3/uL (0.0-0.1) 10/01/17 04:47 Absolute Nucleated RBC 0.1 /100WBC 10/01/17 04:47 Total Counted 100 10/01/17 04:47 Neutrophils % (Manual) 90 % (39-76) H 10/01/17 04:47 Lymphocytes % (Manual) 6 % (13-43) L 10/01/17 04:47 Monocytes % (Manual) 4 % (4-9) 10/01/17 04:47 Giant Platelets N 09/28/17 04:35 Plt Morphology Comment Normal (NORMAL) 10/01/17 04:47 RBC Morphology Normal (NORMAL) 10/01/17 04:47 Sodium 141 mmol/L (136-145) 10/01/17 04:47 Corrected Sodium 143 mmol/L (136-145) 10/01/17 04:47 Potassium 4.7 mmol/L (3.5-5.1) 10/01/17 04:47 Chloride 106 mmol/L (98-107) 10/01/17 04:47 Carbon Dioxide 27.2 mmol/L (21-32) 10/01/17 04:47 BUN 17 mg/dL (7-18) 10/01/17 04:47 Creatinine 1.04 mg/dL (0.70-1.30) 10/01/17 04:47 Est GFR (MDRD) Af Amer > 60 (>60) 10/01/17 04:47 Est GFR (MDRD) Non-Af > 60 (>60) 10/01/17 04:47 Glucose 179 mg/dL (65-99) H 10/01/17 04:47 POC Glucose (mg/dL) 146 mg/dL (65-99) H 10/01/17 11:11 Calcium 8.5 mg/dL (8.5-10.1) 10/01/17 04:47 Corrected Calcium 9.4 mg/dL (8.5-10.1) 10/01/17 04:47 Total Bilirubin 0.30 mg/dL (0.2-1.0) 10/01/17 04:47 AST 55 Units/L (15-37) H 10/01/17 04:47 ALT 169 Units/L (12-78) H 10/01/17 04:47 Alkaline Phosphatase 86 Units/L (46-116) 10/01/17 04:47 Total Protein 6.5 g/dL (6.4-8.2) 10/01/17 04:47 Albumin 2.9 g/dL (3.4-5.0) L 10/01/17 04:47 Globulin 3.6 g/dL (2.5-4.5) 10/01/17 04:47 Albumin/Globulin Ratio 0.8 Ratio (1.1-2.1) L 10/01/17 04:47 - Plan (1) COPD exacerbation Status: Acute Plan: LEVAQUIN, ZOSYN, SUPPLEMENTAL OXYGEN, RESPIRATORY TREATMENTS, CONTINUE TO MONITOR (2) Acute bronchitis Status: Acute Qualifiers: Bronchitis organism: unspecified organism Qualified Code(s): J20.9 - Acute bronchitis, unspecified Plan: LEVAQUIN, ZOSYN, SUPPLEMENTAL OXYGEN, RESPIRATORY TREATMENTS, CONTINUE TO MONITOR (3) Epigastric pain Status: Acute Plan: GI COCKTAIL, CONTINUE TO MONITOR
== END | disposition home or self-care (01) ==
LOC: MED/SURG
PROVIDERS: ADMIT Internal Medicine; ATTEND Internal Medicine
DX: J20.8 Acute bronchitis due to other specified organisms; R06.02 Shortness of breath; I51.7 Cardiomegaly; J44.1 Chronic obstructive pulmonary disease with (acute) exacerbation
CPT/HCPCS: 36415; 71010; 71045; 80053; 85025; 87040; 87205; 94640; 94760; A4216; A4222; C9113; S0028; G0378; J1815; J1956; J2543; J2920; J2930; J7030; J7050; J7620

== ENCOUNTER 2017-10-10 05:44 | Inpatient (IN) ==
[2017-10-10] MEDS ORDERED: NS 1000 ML 1,000 ML IV ONE (06:46)
--- NOTE | 2017-10-10 06:46 | DR.GENAD ---
HPI - PCP Primary Care Physician: NINA - HPI Comment HPI Comment: RECENT ILLNESS, HOSPITALIZE AND TREATED. CONTINUE TO GET WEAK AND NOW FOR PAST 3 DAYS, SYMPTOMS GETTING WORSE. SEVERE GENERALIZE ABDOMINAL PAIN AND DISTENSION. - Complaint/Symptoms Chief Complaint Doctors Comments: ABDOMINAL PAIN, N/V/D TIMES 3 DAYS. GETTING WORSE. Chief Complaint:: THROWING UP AND LOOSE STOOLS(WATER) SEEN PRIMARY YESTERDAY WITH PAPERWORK OF LABS. STATES STOMACH IS HURTING AND BURPING. STATES HAD BOWEL MOVEMENT THIS AM [employer]. Self Treatment fo Chief Complaint: NAUSEA AND DIAH. MEDICATIONS - Nurses notes reviewed Nurses Notes Review: Yes - Source History Provided: Patient - Mode of Arrival Mode of Arrival: Ambulatory - Timing Onset of Chief Complaint: 10/08/17 Came on: Suddenly - Duration Duration: Constant <JAMA JAIME - Last Filed: 10/10/17 08:46> PMH - PMH Past Medical History: Yes Past Medical History: Anxiety, CVA, Hypertension Past Medical History Comment: HX PNA Past Surgical History: Yes Surgical History: Other Past Surgical History Comment: POLYP. CANCER CUT OFF THE BACK OF LEG AND BUTT. 3 HEART CATHS - Family History History of Family Medical Conditions: Yes Family Medical History: Sudden Cardiac Family Medical History Comment: MOTHER - CANCER - Social History Does patient currently use any type of tobacco product: No Have you used tobacco products in the last 12 months: No Type of Tobacco Use: None Does any household member use tobacco: No Alcohol Use: None Do you use any recreational Drugs:: No Lives With: Alone Lives Where: Home - infectious screening In the last 2 months have you had wt loss of >10#?: NO Have you had fever, night sweats or hemotysis?: No Have you traveled outside the country in the last 6 months?: No Isolation: Standard <JAMA JAIME - Last Filed: 10/10/17 08:46> ROS - Review of Systems Constitutional: Weakness, Fatigue, Loss of Appetite. negative: Chills, Fever Eyes: negative: Eye Pain, Discharge ENTM: negative: Ear Pain, Nose Discharge, Nose Congestion, Throat Pain Respiratoy: Short of Breath. negative: Productive Cough, Non-Productive Cough, Wheezing, Hemoptysis Cardiovascular: Chest Pain Gastrointestinal/Abdominal: Abdominal Pain, Diarrhea, Nausea, Vomiting Genitourinary: negative: Dysuria, Frequency, Hematuria Neurological: Weakness, Dizziness Musculoskeletal: Muscle Pain Integumentary: No Symptoms Reported Hematologic/Lymphatic: No Symptoms Reported Endocrine: No Symptoms Reported All Other Systems: Reviewed and Negative <JAMA JAIME - Last Filed: 10/10/17 08:46> PE - General Limitations: No Limitations General Appearance: Alert - Head Head Exam: Normal Inspection - Eyes Eye exam: Normal Appearance, PERRL, EOMI. negative: Scleral Icterus, Conjunctival Injection - ENT ENT Exam: Normal External Ear Exam External Ear Exam: Normal External Inspection TM/Canal Exam: Bilateral Normal Nose Exam: Normal Nose Exam Mouth Exam: Normal Inspection Throat Exam: Normal Inspection - Neck Neck Exam: Trachea Midline - Chest Chest Inspection: Symmetric Chest Wall Rise - Respiratory Respiratory Exam: Normal Lung Sounds Bilat Respiratory Exam: Bilateral Rhonchi, Lower Rhonchi - Cardiovascular Cardiovascular Exam: Regular Rate, Normal Rhythm, Normal Heart Sounds - Abdominal Exam Abdominal Exam: Normal Bowel Sounds, Soft, Distention, Tenderness, Guarding, Rebound - Extremities Extremities Exam: Edema - Back Back Exam: Normal Inspection - Neurologic Neurological Exam: Alert, Oriented X3, CN II-XII Intact. negative: Motor Sensory Deficit - Psychiatric Psychiatric Exam: Anxious - Skin Skin Exam: Erythema <JAMA JAIME - Last Filed: 10/10/17 08:46> - Vital Signs Vitals: Temperature 98.5 F Pulse Rate 82 Respiratory Rate 20 Blood Pressure [Left Arm] 176/94 Blood Pressure [Right Arm] 170/90 Blood Pressure 139/84 O2 Sat by Pulse Oximetry 97 MDM - Differential Diagnosis Differential Diagnosis: GASTROENTERITIS, BOWEL OBSTRUCTION, <JAMA JAIME - Last Filed: 10/10/17 08:46> Course - Treatment Treatment: SEE ORDERS. - Education/Counseling Education/Counseling: Patient, Education Educated On: Treatment, Diagnosis <JAMA JAIME - Last Filed: 10/10/17 08:46> - Consultation Called: 09:00 (Dr Luna agreed to admit for further evaluation) <JUSTIN WHITE - Last Filed: 10/10/17 10:08> ROR - Labs Reviewed Laboratory Results Reviewed?: Yes Result Diagrams: 10/10/17 07:00 10/10/17 07:00 <JAMA JAIME - Last Filed: 10/10/17 08:46> - Labs Reviewed Result Diagrams: 10/10/17 07:00 10/10/17 07:00 - XRAY XRAY Interpreted by: Radiologist (CT abd/pel w/o:Mildly dilated fluid-filled proximal small bowel loops with a transition to more normal sized small bowel at the mid small bowel level. A mild partial small bowel obstruction is suspected. The etiology is not obvious. Adhesive disease is a possibility.) <JUSTIN WHITE - Last Filed: 10/10/17 10:08> - Labs Reviewed Laboratory: 10/10/17 04:30 Stool - Final WBC 20.9 X10^3/uL (3.6-10.0) H 10/10/17 07:00 RBC 5.14 X10^6/uL (4.7-6.0) 10/10/17 07:00 Hgb 15.9 g/dL (13.5-18.0) 10/10/17 07:00 Hct 46.1 % (42.0-54.0) 10/10/17 07:00 MCV 89.6 fL (80.0-100.0) 10/10/17 07:00 MCH 30.9 pg (27.0-34.0) 10/10/17 07:00 MCHC 34.5 g/dL (33.0-35.0) 10/10/17 07:00 RDW 13.9 % (11.6-16.5) 10/10/17 07:00 Plt Count 254 X10^3/uL (150.0-450.0) 10/10/17 07:00 MPV 7.9 fL (7.4-11.0) 10/10/17 07:00 Neut % (Auto) 85.8 % (42.0-75.0) H 10/10/17 07:00 Lymph % (Auto) 5.4 % (21.0-51.0) L 10/10/17 07:00 Gilliam % (Auto) 6.8 % (0.0-13.0) 10/10/17 07:00 Eos % (Auto) 1.6 % (0.9-2.9) 10/10/17 07:00 Baso % (Auto) 0.4 % (0.2-1.0) 10/10/17 07:00 Neut # (Auto) 17.9 x10^3/uL (2.2-4.8) H 10/10/17 07:00 Lymph # (Auto) 1.1 X10^3/uL (1.3-2.9) L 10/10/17 07:00 Gilliam # (Auto) 1.4 x10^3/uL (0.3-0.8) H 10/10/17 07:00 Eos # (Auto) 0.3 x10^3/uL (0.0-0.2) H 10/10/17 07:00 Baso # (Auto) 0.1 X10^3/uL (0.0-0.1) 10/10/17 07:00 Absolute Nucleated RBC 0.0 /100WBC 10/10/17 07:00 Sodium 138 mmol/L (136-145) 10/10/17 07:00 Corrected Sodium 138 mmol/L (136-145) 10/10/17 07:00 Potassium 4.1 mmol/L (3.5-5.1) 10/10/17 07:00 Chloride 101 mmol/L (98-107) 10/10/17 07:00 Carbon Dioxide 28.0 mmol/L (21-32) 10/10/17 07:00 BUN 15 mg/dL (7-18) 10/10/17 07:00 Creatinine 1.08 mg/dL (0.70-1.30) 10/10/17 07:00 Est GFR (MDRD) Af Amer > 60 (>60) 10/10/17 07:00 Est GFR (MDRD) Non-Af > 60 (>60) 10/10/17 07:00 Glucose 117 mg/dL (65-99) H 10/10/17 07:00 Calcium 9.2 mg/dL (8.5-10.1) 10/10/17 07:00 Corrected Calcium TNP 10/10/17 07:00 Total Bilirubin 0.60 mg/dL (0.2-1.0) 10/10/17 07:00 AST 25 Units/L (15-37) 10/10/17 07:00 ALT 65 Units/L (12-78) 10/10/17 07:00 Alkaline Phosphatase 89 Units/L (46-116) 10/10/17 07:00 Total Protein 7.8 g/dL (6.4-8.2) 10/10/17 07:00 Albumin 3.5 g/dL (3.4-5.0) 10/10/17 07:00 Globulin 4.3 g/dL (2.5-4.5) 10/10/17 07:00 Albumin/Globulin Ratio 0.8 Ratio (1.1-2.1) L 10/10/17 07:00 Amylase 43 Units/L (25-115) 10/10/17 07:00 Lipase 89 Units/L (73-393) 10/10/17 07:00 Stool Description 125g lt brown soft 10/10/17 04:30 Stool for White Cells Positive (NEGATIVE) A 10/10/17 04:30 Stl C. diff Tox B Gene Negative (NEGATIVE) 10/10/17 04:30 Stl C. diff 027-NAP1-BI Negative (NEGATIVE) 10/10/17 04:30 Cryptosporid parvum Ag Negative (NEGATIVE) 10/10/17 04:30 Giardia lamblia Ag Negative (NEGATIVE) 10/10/17 04:30 <JAMA JAIME - Last Filed: 10/10/17 08:46> <JUSTIN WHITE - Last Filed: 10/10/17 10:08> - Diagnosis Discharge Problem: Small bowel obstruction - Discharge Plan Disposition: ADMITTED INPATIENT Condition: Stable - Follow ups/Referrals Follow ups/Referrals: Henry Luna [Primary Care Provider] - 3 days - Instructions
[2017-10-10] MEDS ORDERED: PHENERGAN INJ 25 MG IVP ONE (06:47)
[2017-10-10] MEDS ORDERED: DEMEROL INJ IVP ONE ×2 (06:47→13:41)
[2017-10-10] MEDS ORDERED: DEMEROL INJ ONE ×2 (07:04→13:41)
[2017-10-10] MEDS ORDERED: PHENERGAN INJ 25 MG ONE (07:04)
[2017-10-10] MEDS ORDERED: NS 1000 ML 1,000 ML ONE (07:05)
[2017-10-10 07:20] LABS: BASOPHILS # (AUTO) 0.1 X10^3/uL (0.0-0.1); BASOPHILS % (AUTO) 0.4 % (0.2-1.0); EOSINOPHILS # (AUTO) 0.3 x10^3/uL (0.0-0.2); EOSINOPHILS % (AUTO) 1.6 % (0.9-2.9); HEMATOCRIT 46.1 % (42.0-54.0); HEMOGLOBIN 15.9 g/dL (13.5-18.0); LYMPHOCYTES # (AUTO) 1.1 X10^3/uL (1.3-2.9); LYMPHOCYTES % (AUTO) 5.4 % (21.0-51.0); MEAN CORPUSCULAR HEMOGLOBIN 30.9 pg (27.0-34.0); MEAN CORPUSCULAR HGB CONC 34.5 g/dL (33.0-35.0); MEAN CORPUSCULAR VOLUME 89.6 fL (80.0-100.0); MEAN PLATELET VOLUME 7.9 fL (7.4-11.0); MONOCYTES # (AUTO) 1.4 x10^3/uL (0.3-0.8); MONOCYTES % (AUTO) 6.8 % (0.0-13.0); NEUTROPHILS # (AUTO) 17.9 x10^3/uL (2.2-4.8); NEUTROPHILS % (AUTO) 85.8 % (42.0-75.0); PLATELET COUNT 254 X10^3/uL (150.0-450.0); RED BLOOD COUNT 5.14 X10^6/uL (4.7-6.0); RED CELL DISTRIBUTION WIDTH 13.9 % (11.6-16.5); WHITE BLOOD COUNT 20.9 X10^3/uL (3.6-10.0)
[2017-10-10 07:27] LABS: ALANINE AMINOTRANSFERASE 65 Units/L (12-78); ALBUMIN 3.5 g/dL (3.4-5.0); ALKALINE PHOSPHATASE 89 Units/L (46-116); AMYLASE 43 Units/L (25-115); ASPARTATE AMINO TRANSFERASE 25 Units/L (15-37); BLOOD UREA NITROGEN 15 mg/dL (7-18); CALCIUM 9.2 mg/dL (8.5-10.1); CHLORIDE 101 mmol/L (98-107); COR NA(FOR HYPERGLY) 138 mmol/L (136-145); CREATININE 1.08 mg/dL (0.70-1.30); LIPASE 89 Units/L (73-393); SODIUM 138 mmol/L (136-145); TOTAL PROTEIN 7.8 g/dL (6.4-8.2); eGFR NON BLACK RACES > 60 (>60)
[2017-10-10 08:25] LABS: CRYPTOSPORIDIUM PARVUM ANTIGEN NEGATIVE (NEGATIVE); GIARDIA LAMBLIA ANTIGEN NEGATIVE (NEGATIVE); STOOL FOR WBC POSITIVE (NEGATIVE)
--- NOTE | 2017-10-10 08:29 | CT ---
HISTORY: Abdominal pain, diarrhea Study: CT abdomen pelvis without contrast Comparison: None Technique: Axial noncontrast images with coronal and sagittal reformats. Dose reduction procedures we re used with mA/kv adjusted for body size. Dose reduction procedures were used with mA/kv adjusted fo r body size. The examination is limited due to the lack of intravenous and oral contrast. The examina tion was performed in this manner at the sole discretion of the ordering caregiver and without input from Radiology. Findings: The lung bases are clear. The liver, spleen, adrenal glands, and pancreas are within normal limits to the limitations of an unenhanced examination. No opaque stones are visible within the gallbladder. T he kidneys are unobstructed and without stones. No ureteral calculi are identified. The appendix is n ormal. Calcific atherosclerotic changes present in a nondilated abdominal aorta. No intraperitoneal o r retroperitoneal lymphadenopathy of significance is identified. There are no findings suggestive of diverticulitis or colitis. There are some mildly dilated proximal small bowel loops in the left upper quadrant and left mid abdomen. There is transition to a more normal size small bowel at the mid smal l bowel level. A mild partial small bowel obstruction may be present. An etiology is not obvious. Adh esion or internal herniation is possible. Examination of the pelvis demonstrates no evidence for pelv ic masses, pelvic fluid, or pelvic lymphadenopathy. No definite bladder abnormality is identified. No lytic or blastic skeletal lesions are identified. IMPRESSION: Mildly dilated fluid-filled proximal small bowel loops with a transition to more normal size small gerson wel at the mid small bowel level. A mild partial small bowel obstruction is suspected. The etiology i s not obvious. Adhesive disease is a possibility. Reported By:
[2017-10-10] MEDS ORDERED: ZOFRAN INJ 4 MG VIAL IVP PRN (10:14)
[2017-10-10 10:22] LABS: BILIRUBIN,URINE NEGATIVE (NEGATIVE); BLOOD/HEMOGLOBIN,URINE NEGATIVE (NEGATIVE); GLUCOSE, URINE NEGATIVE (NEGATIVE); KETONES,URINE NEGATIVE (NEGATIVE); LEUKOCYTE ESTERASE ,URINE NEGATIVE (NEGATIVE); NITRITES,URINE NEGATIVE (NEGATIVE); PROTEIN,URINE NEGATIVE (NEGATIVE); UROBILINOGEN,URINE NORMAL (NORMAL)
[2017-10-10 10:24] LABS: APPEARANCE,URINE CLEAR (CLEAR); COLOR,URINE YELLOW (YELLOW)
[2017-10-10] MEDS ORDERED: PROTONIX INJ 40 MG VIAL 80 MG in NS 100 ML IV 80 ML IV SCH (11:00)
[2017-10-10] MEDS ORDERED: NS 1000 ML 1,000 ML with POTASSIUM CHLORIDE INJ 30 MEQ VIAL 30 MEQ IV SCH ×2 (11:00)
[2017-10-10 11:22] LABS: CREATINE KINASE 57 Units/L (39-308); CREATINE KINASE MB 1.7 ng/mL (0-4.0); TROPONIN I < 0.02 ng/mL (0-1.5)
[2017-10-10] MEDS ORDERED: PROTONIX INJ 40 MG VIAL ONE (12:20)
[2017-10-10] MEDS: PROTONIX INJ 40 MG VIAL IVP SCH ×2 (12:23→12:27)
[2017-10-10 15:10] VITALS: BMI 33.0
[2017-10-10] MEDS ORDERED: ZOSYN VIAL 4.5 GRAMS IV SCH (16:39)
[2017-10-10] MEDS: ZOSYN VIAL 4.5 GRAMS 4.5 G in NS 100 ML IV + SPIKE MINIBAG* 100 ML IV SCH ×2 (16:48→21:23)
[2017-10-10 17:10] LABS: CKMB % 2.9 % (<4); CREATINE KINASE 48 Units/L (39-308); CREATINE KINASE MB 1.4 ng/mL (0-4.0); TROPONIN I < 0.02 ng/mL (0-1.5)
[2017-10-10] MEDS ORDERED: DEMEROL INJ IVP PRN (20:49)
[2017-10-10] MEDS: NS 1000 ML 1,000 ML IV SCH (21:22)
[2017-10-10 23:10] LABS: CKMB % 2.5 % (<4); CREATINE KINASE 44 Units/L (39-308); CREATINE KINASE MB 1.1 ng/mL (0-4.0); TROPONIN I < 0.02 ng/mL (0-1.5)
[2017-10-11] MEDS: NS 1000 ML 1,000 ML IV SCH ×3 (05:21→22:11)
[2017-10-11] MEDS: ZOSYN VIAL 4.5 GRAMS 4.5 G in NS 100 ML IV + SPIKE MINIBAG* 100 ML IV SCH ×3 (05:21→21:17)
[2017-10-11 05:31] LABS: BASOPHILS # (AUTO) 0.1 X10^3/uL (0.0-0.1); BASOPHILS % (AUTO) 0.6 % (0.2-1.0); EOSINOPHILS # (AUTO) 0.3 x10^3/uL (0.0-0.2); EOSINOPHILS % (AUTO) 2.7 % (0.9-2.9); HEMATOCRIT 37.5 % (42.0-54.0); HEMOGLOBIN 12.7 g/dL (13.5-18.0); LYMPHOCYTES % (AUTO) 17.6 % (21.0-51.0); MEAN CORPUSCULAR HEMOGLOBIN 30.4 pg (27.0-34.0); MEAN CORPUSCULAR VOLUME 89.3 fL (80.0-100.0); MEAN PLATELET VOLUME 8.2 fL (7.4-11.0); MONOCYTES % (AUTO) 8.8 % (0.0-13.0); NEUTROPHILS % (AUTO) 70.3 % (42.0-75.0); PLATELET COUNT 196 X10^3/uL (150.0-450.0); WHITE BLOOD COUNT 11.3 X10^3/uL (3.6-10.0)
[2017-10-11 05:44] LABS: ALANINE AMINOTRANSFERASE 63 Units/L (12-78); ALBUMIN 2.7 g/dL (3.4-5.0); ALKALINE PHOSPHATASE 67 Units/L (46-116); ASPARTATE AMINO TRANSFERASE 27 Units/L (15-37); BLOOD UREA NITROGEN 14 mg/dL (7-18); CALCIUM 8.5 mg/dL (8.5-10.1); CARBON DIOXIDE 27.1 mmol/L (21-32); CHLORIDE 105 mmol/L (98-107); COR CA(FOR HYPOALB) 9.5 mg/dL (8.5-10.1); CREATININE 1.02 mg/dL (0.70-1.30); SODIUM 138 mmol/L (136-145); TOTAL PROTEIN 6.2 g/dL (6.4-8.2); eGFR NON BLACK RACES > 60 (>60)
--- NOTE | 2017-10-11 06:51 | RAD ---
HISTORY: Partial small bowel obstruction Study: Flat and upright abdomen, PA chest Comparison: CT abdomen pelvis 10/10/2017 Findings: The abdominal gas pattern is nonspecific. No dilated small bowel is identified gas is present distall y within the colon. It should be noted that the dilated small bowel noted on the recent CT was fluid- filled and would not necessarily be visible on plain film. There is no evidence for pneumoperitoneum, abnormal masses, or abnormal calcifications. The chest is clear. IMPRESSION: Unremarkable obstruction series Reported By:
--- NOTE | 2017-10-11 09:00 | DR.PROGNOT ---
Hospital Progress Notes - Progress Note for Day of: Progress Note Date: 10/11/17 - Chief Complaint Chief Complaint: still having mid and lower abdominal pain , no nausea or vomiting . abdominal xray in normal . WBC is down to 11. afebrile . - Past Medical Family Social History Past Med/Fam/Surg Hx: No changes since H&P Allergies: Allergies morphine Allergy (Verified 08/21/17 09:44) atorvastatin Adverse Reaction (Verified 08/22/17 16:20) rosuvastatin [From Crestor] Adverse Reaction (Verified 08/22/17 16:20) Kltwmyr-Ttd-Zft Reductase Inhibitor Adverse Reaction (Verified 08/22/17 16:20) - Review Of Systems ROS: No change since H&P - Vital Signs Vital Signs: Temperature 97.6 F Pulse Rate [Left Brachial] 61 Pulse Rate [Right Brachial] 67 Pulse Rate 82 Respiratory Rate 20 Blood Pressure [Left Arm] 128/71 Blood Pressure [Right Arm] 143/75 Blood Pressure 139/84 O2 Sat by Pulse Oximetry 97 - Physical Exam Oriented: Normal Eyes: Normal Ear: Normal Throat: Normal Respiratory: Normal Cardiovascular: Normal : Normal GI:Palpation: Normal GI: Tenderness: Diffuse, RLQ, LLQ (generalized tenderness , more of the lower abdomen ), Periumbilical Speech Pattern: Clear, Appropriate - Laboratory and Diagnostics Result Diagrams: 10/11/17 04:19 10/11/17 04:19 Labs: 10/10/17 04:30 Stool - Final Laboratory WBC 11.3 X10^3/uL (3.6-10.0) H D 10/11/17 04:19 RBC 4.20 X10^6/uL (4.7-6.0) L 10/11/17 04:19 Hgb 12.7 g/dL (13.5-18.0) L D 10/11/17 04:19 Hct 37.5 % (42.0-54.0) L 10/11/17 04:19 MCV 89.3 fL (80.0-100.0) 10/11/17 04:19 MCH 30.4 pg (27.0-34.0) 10/11/17 04:19 MCHC 34.0 g/dL (33.0-35.0) 10/11/17 04:19 RDW 14.0 % (11.6-16.5) 10/11/17 04:19 Plt Count 196 X10^3/uL (150.0-450.0) 10/11/17 04:19 MPV 8.2 fL (7.4-11.0) 10/11/17 04:19 Neut % (Auto) 70.3 % (42.0-75.0) 10/11/17 04:19 Lymph % (Auto) 17.6 % (21.0-51.0) L 10/11/17 04:19 Jones % (Auto) 8.8 % (0.0-13.0) 10/11/17 04:19 Eos % (Auto) 2.7 % (0.9-2.9) 10/11/17 04:19 Baso % (Auto) 0.6 % (0.2-1.0) 10/11/17 04:19 Neut # (Auto) 8.0 x10^3/uL (2.2-4.8) H 10/11/17 04:19 Lymph # (Auto) 2.0 X10^3/uL (1.3-2.9) 10/11/17 04:19 Jones # (Auto) 1.0 x10^3/uL (0.3-0.8) H 10/11/17 04:19 Eos # (Auto) 0.3 x10^3/uL (0.0-0.2) H 10/11/17 04:19 Baso # (Auto) 0.1 X10^3/uL (0.0-0.1) 10/11/17 04:19 Absolute Nucleated RBC 0.0 /100WBC 10/11/17 04:19 Sodium 138 mmol/L (136-145) 10/11/17 04:19 Corrected Sodium TNP 10/11/17 04:19 Potassium 4.2 mmol/L (3.5-5.1) 10/11/17 04:19 Chloride 105 mmol/L (98-107) 10/11/17 04:19 Carbon Dioxide 27.1 mmol/L (21-32) 10/11/17 04:19 BUN 14 mg/dL (7-18) 10/11/17 04:19 Creatinine 1.02 mg/dL (0.70-1.30) 10/11/17 04:19 Est GFR (MDRD) Af Amer > 60 (>60) 10/11/17 04:19 Est GFR (MDRD) Non-Af > 60 (>60) 10/11/17 04:19 Glucose 81 mg/dL (65-99) 10/11/17 04:19 Calcium 8.5 mg/dL (8.5-10.1) 10/11/17 04:19 Corrected Calcium 9.5 mg/dL (8.5-10.1) 10/11/17 04:19 Total Bilirubin 0.60 mg/dL (0.2-1.0) 10/11/17 04:19 AST 27 Units/L (15-37) 10/11/17 04:19 ALT 63 Units/L (12-78) 10/11/17 04:19 Alkaline Phosphatase 67 Units/L (46-116) 10/11/17 04:19 Creatine Kinase 44 Units/L (39-308) 10/10/17 22:40 CK-MB (CK-2) 1.1 ng/mL (0-4.0) 10/10/17 22:40 CK/CKMB % Calc 2.5 % (<4) 10/10/17 22:40 Troponin I < 0.02 ng/mL (0-1.5) 10/10/17 22:40 Total Protein 6.2 g/dL (6.4-8.2) L 10/11/17 04:19 Albumin 2.7 g/dL (3.4-5.0) L 10/11/17 04:19 Globulin 3.5 g/dL (2.5-4.5) 10/11/17 04:19 Albumin/Globulin Ratio 0.8 Ratio (1.1-2.1) L 10/11/17 04:19 Amylase 43 Units/L (25-115) 10/10/17 07:00 Lipase 89 Units/L (73-393) 10/10/17 07:00 Specimen Type Random urine 10/10/17 10:04 Urine Color Yellow (YELLOW) 10/10/17 10:04 Urine Appearance Clear (CLEAR) 10/10/17 10:04 Urine pH 5.0 (5.0 - 8.0) 10/10/17 10:04 Ur Specific [place] 1.010 (1.000-1.030) 10/10/17 10:04 Urine Protein Negative (NEGATIVE) 10/10/17 10:04 Urine Glucose (UA) Negative (NEGATIVE) 10/10/17 10:04 Urine Ketones Negative (NEGATIVE) 10/10/17 10:04 Urine Occult Blood Negative (NEGATIVE) 10/10/17 10:04 Urine Nitrite Negative (NEGATIVE) 10/10/17 10:04 Urine Bilirubin Negative (NEGATIVE) 10/10/17 10:04 Urine Urobilinogen Normal (NORMAL) 10/10/17 10:04 Ur Leukocyte Esterase Negative (NEGATIVE) 10/10/17 10:04 Stool Description 125g lt brown soft 10/10/17 04:30 Stool for White Cells Positive (NEGATIVE) A 10/10/17 04:30 Stl C. diff Tox B Gene Negative (NEGATIVE) 10/10/17 04:30 Stl C. diff 027-NAP1-BI Negative (NEGATIVE) 10/10/17 04:30 Cryptosporid parvum Ag Negative (NEGATIVE) 10/10/17 04:30 Giardia lamblia Ag Negative (NEGATIVE) 10/10/17 04:30 - Assessment and Plan 1: improving abominal pain and ileus . will advance diet and will follow as an out Pt. - Problem Patient Problems: Patient Problems Small bowel obstruction (Acute) K56.056
[2017-10-11] MEDS ORDERED: KLONOPIN TAB 0.5 MG PO PRN (10:07)
[2017-10-11] MEDS ORDERED: XANAX PO PRN (10:07)
[2017-10-11] MEDS ORDERED: PATIENT'S HOME MEDICATION (Lisinopril-Hydrochlorothiazide [Lisinopril-Hydrochlorothiazide] PO SCH (10:15)
[2017-10-11] MEDS ORDERED: PATIENT'S HOME MEDICATION (Budesonide-Formoterol 1 INH) IN SCH (10:15)
[2017-10-11] MEDS ORDERED: ZESTORETIC 10/ 12.5MG ONE (10:54)
[2017-10-11] MEDS ORDERED: NORVASC TAB 5 MG ONE (10:54)
[2017-10-11] MEDS ORDERED: PEPCID 20 MG IV PREMIX* 20 MG/50 ML BAG IV ONE (10:55)
[2017-10-11] MEDS ORDERED: PROTONIX INJ 40 MG VIAL ONE (10:55)
[2017-10-11] MEDS ORDERED: ZETIA TAB 10 MG ONE (10:55)
[2017-10-11] MEDS: PROTONIX INJ 40 MG VIAL IVP SCH ×2 (11:03→20:06)
[2017-10-11] MEDS: NORVASC TAB 5 MG PO SCH (11:03)
[2017-10-11] MEDS: PEPCID 20 MG IV PREMIX* 20 MG/50 ML BAG IV SCH ×2 (11:04→20:05)
[2017-10-11] MEDS: ZETIA TAB 10 MG PO SCH (11:04)
[2017-10-11] MEDS ORDERED: HYDROCHLOROTHIAZIDE 12.5 MG CAP PO SCH (12:00)
[2017-10-11] MEDS: ZESTORETIC 20/25 MG PO SCH (12:30)
--- NOTE | 2017-10-11 13:40 | DR.H&P ---
H&P - History & Physical for Day of: H&P Date: 10/10/17 - Chief Complaint Chief Complaint: abdominal pain - History of Present Illness History of Present Illness: is a 51 year old patient of [facility] who presented to the emergency room with reports of abdominal pain with vomiting. Patient reports symptoms started about three days ago and are worsening. Patient noted with abdominal distention. On arrival, vitals were 98.5, 82, 20, 97% RA, 139/84. Labs were obtained. Abnormal lab values include the following: WBC 20.9, Glucose 117, A/G ratio 0.8. Stool for White Cells Positive; Stool Culture Pending. Abdomen/Pelvis CT: Mildly dilated fluid-filled proximal small bowel loops with a transition to more normal size small bowel at the mid small bowel level. A mild partial small bowel obstruction is suspected. The etiology is not obvious. Adhesive disease is a possibility. Patient refused placement of an NG tube in the ER. consulted with patient in the ER and his examination did not warrant surgical intervention at this time. Patient admitted to the hospital for further evaluation and treatment. He was started on normal saline at 125ml/hr, zosyn 4.5gm iv tid, Demerol 25mg ivp q6h prn, and Zofran 4mgm iv q8h prn. Patient held NPO and will follow up with labs and abdomen x-ray in the morning. - Past Medical History Past Medical History: Anxiety, CVA, Hypertension - Past Surgical History Surgical History: Other - Family History Family Medical History: Cancer, [place], Coronary Artery Disease, Sudden Cardiac , Hypertension - Social History Does patient currently use any type of tobacco product: No Have you used tobacco products in the last 12 months: No Type of Tobacco Use: None Does any household member use tobacco: No Alcohol Use: None Drug Use: None - Medications Home Medications: morphine Allergy (Verified 08/21/17 09:44) atorvastatin Adverse Reaction (Verified 08/22/17 16:20) rosuvastatin [From Crestor] Adverse Reaction (Verified 08/22/17 16:20) Jigpvql-Ovn-Mrp Reductase Inhibitor Adverse Reaction (Verified 08/22/17 16:20) CONTINUE taking the following medications amlodipine 1 tab PO DAILY 10/10/17 [History] aspirin [Aspir-Low] 81 mg PO DAILY 10/10/17 [History] budesonide-formoterol [Symbicort] 1 inh INHALATION BID 10/10/17 [History] clonazepam 0.5 - 1 tab PO PRN PRN 10/10/17 [History] diphenoxylate-atropine 1 - 2 tab PO TID PRN 10/10/17 [History] ondansetron [Zofran ODT] 8 mg PO TID PRN 10/10/17 [History] lisinopril-hydrochlorothiazide 1 tab PO DAILY 10/11/17 [History] - Review of Systems Constitutional: No Symptoms Reported, Fever Eyes: No Symptoms Reported ENT: No Symptoms Reported Respiratory: No Symptoms Reported Cardiovascular: No Symptoms Reported Gastrointestinal: Nausea, Abdominal Pain, Constipation Genitourinary: No Symptoms Reported Musculoskeletal: No Symptoms Reported Skin: No Symptoms Reported Neurological: No Symptoms Reported - Physical Exam Vital Signs: Temperature 98 F Pulse Rate [Left Brachial] 60 Pulse Rate [Right Brachial] 62 Pulse Rate 82 Respiratory Rate 24 Blood Pressure [Left Arm] 159/82 Blood Pressure [Right Arm] 116/65 Blood Pressure 139/84 O2 Sat by Pulse Oximetry 96 Oriented: Normal Eyes: Normal Ear: Normal Nose: Normal Throat: Normal Respiratory: Clear Throughout Cardiovascular: Normal : Normal Auscultation: Bowel Sounds: Decreased Palpation: Normal Tenderness: Diffuse, Moderate, Rebound, Guarding Skin: Normal Musculoskeletal: Normal Psychiatric: Normal Mood Description: Calm Affect: Normal Speech Pattern: Clear - Assessment/Plan (1) Small bowel obstruction Status: Acute Plan: IV FLUIDS, NPO, PAIN AND NAUSEA MEDICATIONS, CONTINUE TO MONITOR - Allergies Allergies/Adverse Reactions: Allergies Allergy/AdvReac Type Severity Reaction Status Date / Time morphine Allergy Verified 08/21/17 09:44 atorvastatin AdvReac Verified 08/22/17 16:20 rosuvastatin [From Crestor] AdvReac Verified 08/22/17 16:20 Abhlntp-Ijf-Mal Reductase AdvReac Verified 08/22/17 16:20 Inhibitor
[2017-10-12] MEDS: ZOSYN VIAL 4.5 GRAMS 4.5 G in NS 100 ML IV + SPIKE MINIBAG* 100 ML IV SCH ×3 (05:10→21:53)
[2017-10-12 05:21] LABS: BASOPHILS % (AUTO) 0.5 % (0.2-1.0); EOSINOPHILS # (AUTO) 0.2 x10^3/uL (0.0-0.2); EOSINOPHILS % (AUTO) 2.1 % (0.9-2.9); HEMATOCRIT 37.1 % (42.0-54.0); HEMOGLOBIN 12.9 g/dL (13.5-18.0); MEAN CORPUSCULAR HGB CONC 34.8 g/dL (33.0-35.0); MEAN CORPUSCULAR VOLUME 89.1 fL (80.0-100.0); MEAN PLATELET VOLUME 7.8 fL (7.4-11.0); MONOCYTES # (AUTO) 0.8 x10^3/uL (0.3-0.8); MONOCYTES % (AUTO) 8.5 % (0.0-13.0); NEUTROPHILS # (AUTO) 6.6 x10^3/uL (2.2-4.8); NEUTROPHILS % (AUTO) 67.9 % (42.0-75.0); PLATELET COUNT 213 X10^3/uL (150.0-450.0); RED BLOOD COUNT 4.16 X10^6/uL (4.7-6.0); RED CELL DISTRIBUTION WIDTH 13.4 % (11.6-16.5); WHITE BLOOD COUNT 9.7 X10^3/uL (3.6-10.0)
[2017-10-12 05:31] LABS: ALANINE AMINOTRANSFERASE 90 Units/L (12-78); ALBUMIN 2.9 g/dL (3.4-5.0); ALKALINE PHOSPHATASE 87 Units/L (46-116); ASPARTATE AMINO TRANSFERASE 35 Units/L (15-37); BLOOD UREA NITROGEN 10 mg/dL (7-18); CALCIUM 8.8 mg/dL (8.5-10.1); CARBON DIOXIDE 31.4 mmol/L (21-32); CHLORIDE 108 mmol/L (98-107); COR CA(FOR HYPOALB) 9.7 mg/dL (8.5-10.1); CREATININE 0.99 mg/dL (0.70-1.30); SODIUM 143 mmol/L (136-145); TOTAL PROTEIN 6.4 g/dL (6.4-8.2); eGFR NON BLACK RACES > 60 (>60)
--- NOTE | 2017-10-12 07:27 | RAD ---
Examination: KUB History: Obstruction, abdominal pain Comparison reference 10/11/2017 Findings: There is no evidence for intestinal distention to suggest bowel obstruction. No developing mass, abnormal air collection or free fluid is identified. Impression: No acute or significant abnormality demonstrated. Reported By:
[2017-10-12] MEDS: Atrovent NEB TX 0.02% NEB SCH ×5 (08:59→21:19)
[2017-10-12] MEDS ORDERED: ZESTRIL TAB 20 MG PO SCH (09:00)
[2017-10-12] MEDS: PULMICORT NEB TX 0.5 MG NEB SCH ×3 (09:00→21:19)
[2017-10-12] MEDS: PROTONIX INJ 40 MG VIAL IVP SCH ×2 (10:27→21:53)
[2017-10-12] MEDS: PEPCID 20 MG IV PREMIX* 20 MG/50 ML BAG IV SCH ×2 (10:27→21:53)
[2017-10-12] MEDS: ZETIA TAB 10 MG PO SCH (10:28)
[2017-10-12] MEDS: ZESTORETIC 20/25 MG PO SCH (10:29)
[2017-10-12] MEDS: COLACE CAP 100 MG PO SCH (10:42)
[2017-10-12] MEDS: NS 1000 ML 1,000 ML IV SCH ×3 (10:43→21:54)
[2017-10-12] MEDS: NORVASC TAB 5 MG PO SCH (10:43)
[2017-10-12] MEDS: MILK OF MAGNESIA PO SCH ×4 (10:43→21:53)
[2017-10-13] MEDS: NS 1000 ML 1,000 ML IV SCH (05:25)
[2017-10-13] MEDS: ZOSYN VIAL 4.5 GRAMS 4.5 G in NS 100 ML IV + SPIKE MINIBAG* 100 ML IV SCH (05:55)
[2017-10-13 06:40] LABS: BASOPHILS # (AUTO) 0.1 X10^3/uL (0.0-0.1); BASOPHILS % (AUTO) 0.7 % (0.2-1.0); EOSINOPHILS # (AUTO) 0.2 x10^3/uL (0.0-0.2); EOSINOPHILS % (AUTO) 2.3 % (0.9-2.9); HEMATOCRIT 37.6 % (42.0-54.0); HEMOGLOBIN 12.9 g/dL (13.5-18.0); LYMPHOCYTES # (AUTO) 2.1 X10^3/uL (1.3-2.9); LYMPHOCYTES % (AUTO) 22.3 % (21.0-51.0); MEAN CORPUSCULAR HEMOGLOBIN 30.8 pg (27.0-34.0); MEAN CORPUSCULAR HGB CONC 34.4 g/dL (33.0-35.0); MEAN CORPUSCULAR VOLUME 89.6 fL (80.0-100.0); MEAN PLATELET VOLUME 7.9 fL (7.4-11.0); MONOCYTES # (AUTO) 0.8 x10^3/uL (0.3-0.8); MONOCYTES % (AUTO) 8.2 % (0.0-13.0); NEUTROPHILS # (AUTO) 6.2 x10^3/uL (2.2-4.8); NEUTROPHILS % (AUTO) 66.5 % (42.0-75.0); PLATELET COUNT 214 X10^3/uL (150.0-450.0); RED CELL DISTRIBUTION WIDTH 13.6 % (11.6-16.5); WHITE BLOOD COUNT 9.3 X10^3/uL (3.6-10.0)
[2017-10-13 06:56] LABS: ALANINE AMINOTRANSFERASE 78 Units/L (12-78); ALBUMIN 2.9 g/dL (3.4-5.0); ALKALINE PHOSPHATASE 90 Units/L (46-116); ASPARTATE AMINO TRANSFERASE 26 Units/L (15-37); BLOOD UREA NITROGEN 6 mg/dL (7-18); CALCIUM 8.9 mg/dL (8.5-10.1); CHLORIDE 107 mmol/L (98-107); COR CA(FOR HYPOALB) 9.8 mg/dL (8.5-10.1); COR NA(FOR HYPERGLY) 143 mmol/L (136-145); CREATININE 0.99 mg/dL (0.70-1.30); SODIUM 143 mmol/L (136-145); TOTAL PROTEIN 6.5 g/dL (6.4-8.2); eGFR NON BLACK RACES > 60 (>60)
--- NOTE | 2017-10-13 07:45 | RAD ---
Examination: KUB History: Abdominal pain Comparison reference 10/12/2017 Findings: Continued normal intestinal gas pattern without evidence for obstruction, focal ileus, mass formation or ascites. Impression: No acute findings. The Reported By:
[2017-10-13] MEDS: PULMICORT NEB TX 0.5 MG NEB SCH (09:05)
[2017-10-13] MEDS: Atrovent NEB TX 0.02% NEB SCH (09:05)
[2017-10-13] MEDS: PROTONIX INJ 40 MG VIAL IVP SCH (09:26)
[2017-10-13] MEDS: COLACE CAP 100 MG PO SCH (09:26)
[2017-10-13] MEDS: PEPCID 20 MG IV PREMIX* 20 MG/50 ML BAG IV SCH (09:26)
[2017-10-13] MEDS: MILK OF MAGNESIA PO SCH (09:26)
[2017-10-13] MEDS: ZETIA TAB 10 MG PO SCH (09:27)
[2017-10-13] MEDS: NORVASC TAB 5 MG PO SCH (09:27)
[2017-10-13] MEDS: ZESTORETIC 20/25 MG PO SCH (09:27)
--- NOTE | 2017-10-13 14:10 | PCM.PROG ---
Progress Note - Progress Note for Day of Date: 10/11/17 - Subjective Subjective: WAS ADMITTED FOR A POSSIBLE SMALL BOWEL OBSTRUCTION. TODAY, HE IS ALERT AND ORIENTED, LYING IN BED ON MORNING ROUNDS. HE CONTINUES WITH COMPLAINTS OF DIFFUSE ABDOMINAL PAIN AND CONSTIPATION. ON EXAMINATION, HEART IS REGULAR IN RATE AND RHYTHM. BILATERAL LUNGS ARE CLEAR TO AUSCULTATION. ABDOMEN IS ROUND, SOFT, AND NOTED WITH MILD, DIFFUSE TENDERNESS TO PALPATION. HYPOACTIVE BOWEL SOUNDS ARE NOTED IN ALL QUADRANTS. HIS VITALS TODAY ARE 97.6-61 -20-97%-128/71. LABS WERE OBTAINED. ABNORMAL LAB VALUES INCLUDE THE FOLLOWING: WBC DECREASED FROM 20.9 TO 11.3, RBC 4.20, HGB 12.7, HCT 37.5, TOTAL PROTEIN 6.2 , ALBUMIN 2.7. AN ABDOMEN XRAY WAS OBTAINED THIS MORNING AND REPORTED NORMAL. TODAY, WE WILL CONTINUE WITH CURRENT PLAN OF CARE. WE PLAN TO FOLLOW UP WITH AM LABS AND KUB AND CONTINUE TO MONITOR PATIENT. - Past Medical Family Social History Past Med/Fam/Surg Hx: No changes since H&P Allergies: Allergies morphine Allergy (Verified 08/21/17 09:44) atorvastatin Adverse Reaction (Verified 08/22/17 16:20) rosuvastatin [From Crestor] Adverse Reaction (Verified 08/22/17 16:20) Yyelwdl-Wmu-Ofa Reductase Inhibitor Adverse Reaction (Verified 08/22/17 16:20) - Review of Systems ROS: No change since H&P - Vital Signs and I&O's Vital Signs: Temperature 98.0 F Pulse Rate [Left Brachial] 58 Pulse Rate [Right Brachial] 62 Pulse Rate 59 Respiratory Rate 18 Blood Pressure [Left Arm] 137/64 Blood Pressure [Right Arm] 116/65 Blood Pressure 139/84 O2 Sat by Pulse Oximetry 90 Intake and Output: Intake & Output 10/11/17 10/12/17 10/13/17 10/14/17 11:59 11:59 11:59 11:59 Intake Total 1873 / 1873 1974 3580 / 3580 Output Total 700 / 700 Balance 1173 / 1173 1974 3580 / 3580 - Physical Exam Oriented: Normal Eyes: Normal Ear: Normal Nose: Normal Throat: Normal Respiratory: Normal Cardiovascular: Normal : Normal Auscultation: Bowel Sounds: Decreased Palpation: Normal Tenderness: Diffuse, Mild, Rebound, Guarding Skin: Normal Musculoskeletal: Normal Psychiatric: Normal Mood Description: Calm Affect: Normal Speech Pattern: Clear - Laboratory and Diagnostics Result Diagrams: 10/13/17 05:42 10/13/17 05:42 Labs: 10/10/17 04:30 Stool Stool Culture - Final 10/10/17 04:30 Stool - Final Laboratory WBC 9.3 X10^3/uL (3.6-10.0) 10/13/17 05:42 RBC 4.20 X10^6/uL (4.7-6.0) L 10/13/17 05:42 Hgb 12.9 g/dL (13.5-18.0) L 10/13/17 05:42 Hct 37.6 % (42.0-54.0) L 10/13/17 05:42 MCV 89.6 fL (80.0-100.0) 10/13/17 05:42 MCH 30.8 pg (27.0-34.0) 10/13/17 05:42 MCHC 34.4 g/dL (33.0-35.0) 10/13/17 05:42 RDW 13.6 % (11.6-16.5) 10/13/17 05:42 Plt Count 214 X10^3/uL (150.0-450.0) 10/13/17 05:42 MPV 7.9 fL (7.4-11.0) 10/13/17 05:42 Neut % (Auto) 66.5 % (42.0-75.0) 10/13/17 05:42 Lymph % (Auto) 22.3 % (21.0-51.0) 10/13/17 05:42 Cassia % (Auto) 8.2 % (0.0-13.0) 10/13/17 05:42 Eos % (Auto) 2.3 % (0.9-2.9) 10/13/17 05:42 Baso % (Auto) 0.7 % (0.2-1.0) 10/13/17 05:42 Neut # (Auto) 6.2 x10^3/uL (2.2-4.8) H 10/13/17 05:42 Lymph # (Auto) 2.1 X10^3/uL (1.3-2.9) 10/13/17 05:42 Cassia # (Auto) 0.8 x10^3/uL (0.3-0.8) 10/13/17 05:42 Eos # (Auto) 0.2 x10^3/uL (0.0-0.2) 10/13/17 05:42 Baso # (Auto) 0.1 X10^3/uL (0.0-0.1) 10/13/17 05:42 Absolute Nucleated RBC 0.0 /100WBC 10/13/17 05:42 Sodium 143 mmol/L (136-145) 10/13/17 05:42 Corrected Sodium 143 mmol/L (136-145) 10/13/17 05:42 Potassium 3.9 mmol/L (3.5-5.1) 10/13/17 05:42 Chloride 107 mmol/L (98-107) 10/13/17 05:42 Carbon Dioxide 30.0 mmol/L (21-32) 10/13/17 05:42 BUN 6 mg/dL (7-18) L 10/13/17 05:42 Creatinine 0.99 mg/dL (0.70-1.30) 10/13/17 05:42 Est GFR (MDRD) Af Amer > 60 (>60) 10/13/17 05:42 Est GFR (MDRD) Non-Af > 60 (>60) 10/13/17 05:42 Glucose 117 mg/dL (65-99) H 10/13/17 05:42 Calcium 8.9 mg/dL (8.5-10.1) 10/13/17 05:42 Corrected Calcium 9.8 mg/dL (8.5-10.1) 10/13/17 05:42 Total Bilirubin 0.30 mg/dL (0.2-1.0) 10/13/17 05:42 AST 26 Units/L (15-37) 10/13/17 05:42 ALT 78 Units/L (12-78) 10/13/17 05:42 Alkaline Phosphatase 90 Units/L (46-116) 10/13/17 05:42 Creatine Kinase 44 Units/L (39-308) 10/10/17 22:40 CK-MB (CK-2) 1.1 ng/mL (0-4.0) 10/10/17 22:40 CK/CKMB % Calc 2.5 % (<4) 10/10/17 22:40 Troponin I < 0.02 ng/mL (0-1.5) 10/10/17 22:40 Total Protein 6.5 g/dL (6.4-8.2) 10/13/17 05:42 Albumin 2.9 g/dL (3.4-5.0) L 10/13/17 05:42 Globulin 3.6 g/dL (2.5-4.5) 10/13/17 05:42 Albumin/Globulin Ratio 0.8 Ratio (1.1-2.1) L 10/13/17 05:42 Amylase 43 Units/L (25-115) 10/10/17 07:00 Lipase 89 Units/L (73-393) 10/10/17 07:00 Specimen Type Random urine 10/10/17 10:04 Urine Color Yellow (YELLOW) 10/10/17 10:04 Urine Appearance Clear (CLEAR) 10/10/17 10:04 Urine pH 5.0 (5.0 - 8.0) 10/10/17 10:04 Ur Specific [place] 1.010 (1.000-1.030) 10/10/17 10:04 Urine Protein Negative (NEGATIVE) 10/10/17 10:04 Urine Glucose (UA) Negative (NEGATIVE) 10/10/17 10:04 Urine Ketones Negative (NEGATIVE) 10/10/17 10:04 Urine Occult Blood Negative (NEGATIVE) 10/10/17 10:04 Urine Nitrite Negative (NEGATIVE) 10/10/17 10:04 Urine Bilirubin Negative (NEGATIVE) 10/10/17 10:04 Urine Urobilinogen Normal (NORMAL) 10/10/17 10:04 Ur Leukocyte Esterase Negative (NEGATIVE) 10/10/17 10:04 Stool Description 125g lt brown soft 10/10/17 04:30 Stool for White Cells Positive (NEGATIVE) A 10/10/17 04:30 Stl C. diff Tox B Gene Negative (NEGATIVE) 10/10/17 04:30 Stl C. diff [id number] Negative (NEGATIVE) 10/10/17 04:30 Cryptosporid parvum Ag Negative (NEGATIVE) 10/10/17 04:30 Giardia lamblia Ag Negative (NEGATIVE) 10/10/17 04:30 - Plan (1) Small bowel obstruction Status: Acute Plan: IV FLUIDS, NPO, PAIN AND NAUSEA MEDICATIONS, CONTINUE TO MONITOR, FOLLOW UP KUB IN AM
[2017-10-13 14:17] VITALS: BP 163/86
--- NOTE | 2017-10-13 16:02 | PCM.PROG ---
Progress Note - Progress Note for Day of Date: 10/12/17 - Subjective Subjective: WAS ADMITTED FOR A POSSIBLE SMALL BOWEL OBSTRUCTION. TODAY, HE IS ALERT AND ORIENTED, LYING IN BED ON MORNING ROUNDS. HE CONTINUES WITH COMPLAINTS OF DIFFUSE ABDOMINAL PAIN AND CONSTIPATION, BUT REPORTS SLIGHT IMPROVEMENT SINCE ADMISSION. ON EXAMINATION, HEART IS REGULAR IN RATE AND RHYTHM. BILATERAL LUNGS ARE CLEAR TO AUSCULTATION. ABDOMEN IS ROUND, SOFT, AND NOTED WITH MILD, DIFFUSE TENDERNESS TO PALPATION. HYPOACTIVE BOWEL SOUNDS ARE NOTED IN ALL QUADRANTS. HIS VITALS TODAY ARE 97.4-65-20-94%-146/86. LABS WERE OBTAINED. ABNORMAL LAB VALUES INCLUDE THE FOLLOWING: WBC DECREASED FROM 11.3 TO 9.7, RBC 4.16, HGB 12.9, HCT 37.1, CHLORIDE 108, GLUCOSE 110, ALT 90, ALBUMIN 2.9. A KUB WAS OBTAINED THIS MORNING AND REPORTED NO ACUTE OR SIGNIFICANT ABNORMALITY DEMONSTRATED. TODAY, WE WILL CONTINUE WITH CURRENT PLAN OF CARE AND START A BOWEL REGIMEN. WE PLAN TO FOLLOW UP WITH AM LABS AND KUB AND CONTINUE TO MONITOR PATIENT. - Past Medical Family Social History Past Med/Fam/Surg Hx: No changes since H&P Allergies: Allergies morphine Allergy (Verified 08/21/17 09:44) atorvastatin Adverse Reaction (Verified 08/22/17 16:20) rosuvastatin [From Crestor] Adverse Reaction (Verified 08/22/17 16:20) [id number]-[id number]-[id number] Reductase Inhibitor Adverse Reaction (Verified 08/22/17 16:20) - Review of Systems ROS: No change since H&P - Vital Signs and I&O's Vital Signs: Temperature 97.8 F Pulse Rate [Left Brachial] 86 Pulse Rate [Right Brachial] 62 Pulse Rate 59 Respiratory Rate 20 Blood Pressure [Left Arm] 163/86 Blood Pressure [Right Arm] 116/65 Blood Pressure 139/84 O2 Sat by Pulse Oximetry 96 Intake and Output: Intake & Output 10/11/17 10/12/17 10/13/17 10/14/17 11:59 11:59 11:59 11:59 Intake Total 1873 / 1873 1974 3580 / 3580 Output Total 700 / 700 Balance 1173 / 1173 1974 3580 / 3580 - Physical Exam Oriented: Normal Eyes: Normal Ear: Normal Nose: Normal Throat: Normal Respiratory: Normal Cardiovascular: Normal : Normal Auscultation: Bowel Sounds: Decreased Palpation: Normal Tenderness: Diffuse, Mild, Rebound, Guarding Skin: Normal Musculoskeletal: Normal Psychiatric: Normal Mood Description: Calm Affect: Normal Speech Pattern: Clear - Laboratory and Diagnostics Result Diagrams: 10/13/17 05:42 10/13/17 05:42 Labs: 10/10/17 04:30 Stool Stool Culture - Final 10/10/17 04:30 Stool - Final Laboratory WBC 9.3 X10^3/uL (3.6-10.0) 10/13/17 05:42 RBC 4.20 X10^6/uL (4.7-6.0) L 10/13/17 05:42 Hgb 12.9 g/dL (13.5-18.0) L 10/13/17 05:42 Hct 37.6 % (42.0-54.0) L 10/13/17 05:42 MCV 89.6 fL (80.0-100.0) 10/13/17 05:42 MCH 30.8 pg (27.0-34.0) 10/13/17 05:42 MCHC 34.4 g/dL (33.0-35.0) 10/13/17 05:42 RDW 13.6 % (11.6-16.5) 10/13/17 05:42 Plt Count 214 X10^3/uL (150.0-450.0) 10/13/17 05:42 MPV 7.9 fL (7.4-11.0) 10/13/17 05:42 Neut % (Auto) 66.5 % (42.0-75.0) 10/13/17 05:42 Lymph % (Auto) 22.3 % (21.0-51.0) 10/13/17 05:42 [facility] % (Auto) 8.2 % (0.0-13.0) 10/13/17 05:42 Eos % (Auto) 2.3 % (0.9-2.9) 10/13/17 05:42 Baso % (Auto) 0.7 % (0.2-1.0) 10/13/17 05:42 Neut # (Auto) 6.2 x10^3/uL (2.2-4.8) H 10/13/17 05:42 Lymph # (Auto) 2.1 X10^3/uL (1.3-2.9) 10/13/17 05:42 [facility] # (Auto) 0.8 x10^3/uL (0.3-0.8) 10/13/17 05:42 Eos # (Auto) 0.2 x10^3/uL (0.0-0.2) 10/13/17 05:42 Baso # (Auto) 0.1 X10^3/uL (0.0-0.1) 10/13/17 05:42 Absolute Nucleated RBC 0.0 /100WBC 10/13/17 05:42 Sodium 143 mmol/L (136-145) 10/13/17 05:42 Corrected Sodium 143 mmol/L (136-145) 10/13/17 05:42 Potassium 3.9 mmol/L (3.5-5.1) 10/13/17 05:42 Chloride 107 mmol/L (98-107) 10/13/17 05:42 Carbon Dioxide 30.0 mmol/L (21-32) 10/13/17 05:42 BUN 6 mg/dL (7-18) L 10/13/17 05:42 Creatinine 0.99 mg/dL (0.70-1.30) 10/13/17 05:42 Est GFR (MDRD) Af Amer > 60 (>60) 10/13/17 05:42 Est GFR (MDRD) Non-Af > 60 (>60) 10/13/17 05:42 Glucose 117 mg/dL (65-99) H 10/13/17 05:42 Calcium 8.9 mg/dL (8.5-10.1) 10/13/17 05:42 Corrected Calcium 9.8 mg/dL (8.5-10.1) 10/13/17 05:42 Total Bilirubin 0.30 mg/dL (0.2-1.0) 10/13/17 05:42 AST 26 Units/L (15-37) 10/13/17 05:42 ALT 78 Units/L (12-78) 10/13/17 05:42 Alkaline Phosphatase 90 Units/L (46-116) 10/13/17 05:42 Creatine Kinase 44 Units/L (39-308) 10/10/17 22:40 CK-MB (CK-2) 1.1 ng/mL (0-4.0) 10/10/17 22:40 CK/CKMB % Calc 2.5 % (<4) 10/10/17 22:40 Troponin I < 0.02 ng/mL (0-1.5) 10/10/17 22:40 Total Protein 6.5 g/dL (6.4-8.2) 10/13/17 05:42 Albumin 2.9 g/dL (3.4-5.0) L 10/13/17 05:42 Globulin 3.6 g/dL (2.5-4.5) 10/13/17 05:42 Albumin/Globulin Ratio 0.8 Ratio (1.1-2.1) L 10/13/17 05:42 Amylase 43 Units/L (25-115) 10/10/17 07:00 Lipase 89 Units/L (73-393) 10/10/17 07:00 Specimen Type Random urine 10/10/17 10:04 Urine Color Yellow (YELLOW) 10/10/17 10:04 Urine Appearance Clear (CLEAR) 10/10/17 10:04 Urine pH 5.0 (5.0 - 8.0) 10/10/17 10:04 Ur Specific Post 1.010 (1.000-1.030) 10/10/17 10:04 Urine Protein Negative (NEGATIVE) 10/10/17 10:04 Urine Glucose (UA) Negative (NEGATIVE) 10/10/17 10:04 Urine Ketones Negative (NEGATIVE) 10/10/17 10:04 Urine Occult Blood Negative (NEGATIVE) 10/10/17 10:04 Urine Nitrite Negative (NEGATIVE) 10/10/17 10:04 Urine Bilirubin Negative (NEGATIVE) 10/10/17 10:04 Urine Urobilinogen Normal (NORMAL) 10/10/17 10:04 Ur Leukocyte Esterase Negative (NEGATIVE) 10/10/17 10:04 Stool Description 125g lt brown soft 10/10/17 04:30 Stool for White Cells Positive (NEGATIVE) A 10/10/17 04:30 Stl C. diff Tox B Gene Negative (NEGATIVE) 10/10/17 04:30 Stl C. diff [id number] Negative (NEGATIVE) 10/10/17 04:30 Cryptosporid parvum Ag Negative (NEGATIVE) 10/10/17 04:30 Giardia lamblia Ag Negative (NEGATIVE) 10/10/17 04:30 - Plan (1) Small bowel obstruction Status: Acute Plan: IV FLUIDS, PAIN AND NAUSEA MEDICATIONS, CONTINUE TO MONITOR, FOLLOW UP KUB IN AM (2) Constipation Status: Acute Qualifiers: Constipation type: unspecified constipation type Qualified Code(s): K59.00 - Constipation, unspecified Plan: MILK OF MAGNESIA, COLACE, MIRALAX, CONTINUE TO MONITOR (3) HTN (hypertension) Status: Acute Qualifiers: Hypertension type: essential hypertension Qualified Code(s): I10 - Essential (primary) hypertension Plan: CONTINUE HOME MEDS, CONTINUE TO MONITOR
--- NOTE | 2017-11-11 00:10 | DR.CARTERD ---
- Discharge Summary for: Discharge Summary for Date of:: 10/13/17 - Admission Date Date of Admission: 10/10/17 - Admission Diagnoses Admission Diagnosis: (1) Small bowel obstruction - Discharge Date Discharge Date: 10/13/17 - Discharge Diagnoses Discharge Diagnosis: (1) Small bowel obstruction (2) Constipation (3) HTN (hypertension) - Hospital Course Hospital Course: Day one, is a 51 year old patient of [facility] who presented to the emergency room with reports of abdominal pain with vomiting. Patient reported symptoms started about three days ago and are worsening. Patient noted with abdominal distention. On arrival, vitals were 98.5, 82, 20, 97% RA, 139/84. Labs were obtained. Abnormal lab values included the following: WBC 20.9 , Glucose 117, A/G ratio 0.8. Stool for White Cells Positive; Stool Culture obtained. Abdomen/Pelvis CT: Mildly dilated fluid-filled proximal small bowel loops with a transition to more normal size small bowel at the mid small bowel level. A mild partial small bowel obstruction is suspected. The etiology is not obvious. Adhesive disease is a possibility. Patient refused placement of an NG tube in the ER. consulted with patient in the ER and his examination did not warrant surgical intervention at that time. Patient admitted to the hospital for further evaluation and treatment. He was started on normal saline at 125ml/hr, zosyn 4.5gm iv tid, Demerol 25mg ivp q6h prn, and Zofran 4mg iv q8h prn. Patient held NPO and we continued to monitor. Day two, patient continued treatment for small bowel obstruction. He continued with complaints of diffuse abdominal pain and constipation. Abdomen was round, soft, and noted with mild, diffuse tenderness to palpation. Hypoactive bowel sounds were noted. Vitals were 97.6-61-20-97%-128/71. Wbc decreased from 20.9 to 11.3. Abdomen xray was normal. We continued with treatment and monitored. Day three, He continued with complaints of diffuse abdominal pain and constipation. Abdomen was round, soft, and noted with mild, diffuse tenderness to palpation. Hypoactive bowel sounds were noted. Vital signs were 97.4-65-20-94%-146/86. Wbc decreased from 11.3 to 9.7. A kub was obtained and was negative for acute abnormality. We continued with treatment. Day four, kub reported no acute findings with normal gas pattern noted. Patient was passing flatus. Patient reported abdominal pain had subsided. Abdomen was non-tender, non-distended upon palpation. Vital signs stable. Labs wnl. We planned for discharge. Instructions for medications and follow up were discussed with patient and family, both voiced understanding. Patient discharged home in stable condition with family. - Discharge Medications Discharge Medications: Home Medication List amlodipine 1 tab PO DAILY 10/10/17 [History] aspirin [Aspir-Low] 81 mg PO DAILY 10/10/17 [History] budesonide-formoterol [Symbicort] 1 inh INHALATION BID 10/10/17 [History] clonazepam 0.5 - 1 tab PO PRN PRN 10/10/17 [History] diphenoxylate-atropine 1 - 2 tab PO TID PRN 10/10/17 [History] ondansetron [Zofran ODT] 8 mg PO TID PRN 10/10/17 [History] lisinopril-hydrochlorothiazide 1 tab PO DAILY 10/11/17 [History] ciprofloxacin HCl [Cipro] 500 mg PO BID #20 tab 10/13/17 [Rx] docusate sodium [Colace] 100 mg PO DAILY #30 cap 10/13/17 [Rx] magnesium hydroxide [Milk of Magnesia] 10 ml PO QID PRN #1 bottle 10/13/17 [Rx] polyethylene glycol 3350 [Miralax] 17 g PO DAILY #1 bottle 10/13/17 [Rx] Prescriptions: ciprofloxacin HCl [Cipro] Henry Luna docusate sodium [Colace] Henry Luna magnesium hydroxide [Milk of Magnesia] Henry Luna polyethylene glycol 3350 [Miralax] Henry Luna - Discharge Disposition Discharge Disposition: Patient is to follow up with NORAH Guardado in one week.
== END 2017-10-13 11:30 | disposition home or self-care (01) | DRG 390 ==
LOC: ER 05:44 → MED/SURG 13:35
PROVIDERS: ADMIT Internal Medicine; ATTEND Internal Medicine
DX: I10 Essential (primary) hypertension; R10.84 Generalized abdominal pain; K21.9 Gastro-esophageal reflux disease without esophagitis; K56.690 Other partial intestinal obstruction; F41.8 Other specified anxiety disorders; R94.31 Abnormal electrocardiogram [ECG] [EKG]; R06.02 Shortness of breath; K59.09 Other constipation; I25.10 Atherosclerotic heart disease of native coronary artery without angina pectoris; G47.33 Obstructive sleep apnea (adult) (pediatric)
CPT/HCPCS: 36415; 74000; 74018; 74022; 74176; 80053; 81003; 82150; 82550; 82553; 83630; 83690; 84484; 85025; 87045; 87328; 87329; 87427; 87449; 87493; 87899; 93005; 94640; 94760; 96365; 96367; 96374; 96375; 99283; 99284; A4222; C9113; S0028; J2175; J2405; J2543; J2550; J3480; J7030; J7050; J7626; J7644

== ENCOUNTER 2018-04-02 14:23 | Observation (INO) ==
--- NOTE | 2018-04-02 15:32 | DR.EXTPAIN ---
HPI Time seen Time Seen by Provider: 04/02/18 15:31 PCP Primary Care Physician: mireya padilla HPI Comment HPI Comment: PATIENT HAVE COUGH, CONGESTION AND ELEVATED BP TIMES ONE WEEK AND GETTING WORSE. Complaint/Symptoms Chief Complaint Doctor Comments: COUGH, CONGESTION AND ELEVATED BP. Chief Complaint:: pt stated for the last week he has been having chest cold and high bp Nurses notes reviewed Nurses Notes Review: Yes Source History Provided: Patient Mode of arrival Mode of Arrival: Ambulatory Timing Onset of Chief Complaint: 03/26/18 Context History of: None Associated signs and symptoms Associated Signs and Symptoms: Pain and Cough PMH PMH Past Medical History: Yes Past Medical History: Anxiety, CVA and Hypertension Past Surgical History: Yes Surgical History: Other Family History History of Family Medical Conditions: Yes Family Medical History: Cancer, [place], Coronary Artery Disease, Sudden Cardiac and Hypertension Social History Does patient currently use any type of tobacco product: No Have you used tobacco products in the last 12 months: No Type of Tobacco Use: None Does any household member use tobacco: No Alcohol Use: None Do you use any recreational Drugs:: No Lives With: Family Lives Where: Home infectious screening In the last 2 months have you had wt loss of >10#?: NO Have you had fever, night sweats or hemotysis?: No Have you traveled outside the country in the last 6 months?: No Isolation: Standard ROS Review of Systems Constitutional: No Symptoms Reported Eyes: No Symptoms Reported ENTM: Nose Congestion Respiratoy: Moist Cough Cardiovascular: Other (ELEVATED BP.) Gastrointestinal/Abdominal: No Symptoms Reported Genitourinary: No Symptoms Reported Neurological: No Symptoms Reported Musculoskeletal: No Symptoms Reported Integumentary: No Symptoms Reported Hematologic/Lymphatic: No Symptoms Reported Endocrine: No Symptoms Reported Psychiatric: No Symptoms Reported All Other Systems: Reviewed and Negative PE Vital Signs Vitals: Temperature 98.2 F Pulse Rate [Left] 75 Pulse Rate 84 Respiratory Rate 18 Blood Pressure [Left Arm] 144/70 Blood Pressure [Right Arm] 116/65 Blood Pressure 168/88 O2 Sat by Pulse Oximetry 93 General Limitations: No Limitations General Appearance: Alert and In No Apparent Distress Head Head Exam: Normal Inspection Eyes Eye exam: Normal Appearance ENT ENT Exam: Normal Exam Neck Neck Exam: Normal Inspection Chest Chest Inspection: Normal Inspection and Symmetric Chest Wall Rise Respiratory Respiratory Exam: Normal Lung Sounds Bilat Respiratory Exam: Bilateral: Clear to Auscultation Cardiovascular Cardiovascular Exam: Regular Rate and Normal Rhythm Abdominal Exam Abdominal Exam: Normal Inspection, Normal Bowel Sounds and Soft Extremities Extremities Exam: Normal Inspection Back Back Exam: Normal Inspection Neurological Neurological Exam: Alert, Oriented X3 and CN II-XII Intact Psychiatric Psychiatric Exam: Normal Affect and Normal Mood Skin Skin Exam: Warm, Dry, Intact and Normal Color MDM Differential Diagnosis Differential Diagnosis: Other (BRONCHITIS, PNEUMONIA, HTN, SINUSITIS.) COURSE Treatment Treatment: SEE ORDERS. Education/Counseling Education/Counseling: Patient Educated On: Diagnosis and Needs for Follow Up ROR Labs Reviewed Laboratory Results Reviewed?: Yes Result Diagrams: 04/03/18 05:21 04/03/18 05:21 Laboratory: 04/02/18 15:43 Blood Blood Culture - Final 04/02/18 15:39 Blood Blood Culture - Final 04/02/18 16:35 Sputum - Expectorated Sputum Sputum Culture - Final 04/02/18 16:35 Sputum - Expectorated Sputum - Final WBC 9.0 X10^3/uL (3.6-10.0) 04/03/18 05:21 RBC 4.51 X10^6/uL (4.7-6.0) L 04/03/18 05:21 Hgb 13.7 g/dL (13.5-18.0) D 04/03/18 05:21 Hct 40.5 % (42.0-54.0) L 04/03/18 05:21 MCV 89.8 fL (80.0-100.0) 04/03/18 05:21 MCH 30.5 pg (27.0-34.0) 04/03/18 05:21 MCHC 33.9 g/dL (33.0-35.0) 04/03/18 05:21 RDW 14.0 % (11.6-16.5) 04/03/18 05:21 Plt Count 212 X10^3/uL (150.0-450.0) 04/03/18 05:21 MPV 8.4 fL (7.4-11.0) 04/03/18 05:21 Neut % (Auto) 70.7 % (42.0-75.0) 04/03/18 05:21 Lymph % (Auto) 13.8 % (21.0-51.0) L 04/03/18 05:21 [place] % (Auto) 10.5 % (0.0-13.0) 04/03/18 05:21 Eos % (Auto) 4.3 % (0.9-2.9) H 04/03/18 05:21 Baso % (Auto) 0.7 % (0.2-1.0) 04/03/18 05:21 Neut # (Auto) 6.4 x10^3/uL (2.2-4.8) H 04/03/18 05:21 Lymph # (Auto) 1.2 X10^3/uL (1.3-2.9) L 04/03/18 05:21 [place] # (Auto) 1.0 x10^3/uL (0.3-0.8) H 04/03/18 05:21 Eos # (Auto) 0.4 x10^3/uL (0.0-0.2) H 04/03/18 05:21 Baso # (Auto) 0.1 X10^3/uL (0.0-0.1) 04/03/18 05:21 Absolute Nucleated RBC 0.1 /100WBC 04/03/18 05:21 Sodium 137 mmol/L (136-145) 04/03/18 05:21 Corrected Sodium TNP 04/03/18 05:21 Potassium 3.7 mmol/L (3.5-5.1) 04/03/18 05:21 Chloride 100 mmol/L (98-107) 04/03/18 05:21 Carbon Dioxide 27.7 mmol/L (21-32) 04/03/18 05:21 BUN 15 mg/dL (7-18) 04/03/18 05:21 Creatinine 0.91 mg/dL (0.70-1.30) 04/03/18 05:21 Est GFR (MDRD) Af Amer > 60 (>60) 04/03/18 05:21 Est GFR (MDRD) Non-Af > 60 (>60) 04/03/18 05:21 Glucose 105 mg/dL (65-99) H 04/03/18 05:21 Lactic Acid 2.0 mmol/L (0.4-2.0) 04/02/18 15:43 Calcium 8.7 mg/dL (8.5-10.1) 04/03/18 05:21 Corrected Calcium 9.3 mg/dL (8.5-10.1) 04/03/18 05:21 Total Bilirubin 0.50 mg/dL (0.2-1.0) 04/03/18 05:21 AST 19 Units/L (15-37) 04/03/18 05:21 ALT 33 Units/L (12-78) 04/03/18 05:21 Alkaline Phosphatase 75 Units/L (46-116) 04/03/18 05:21 Total Protein 6.9 g/dL (6.4-8.2) 04/03/18 05:21 Albumin 3.3 g/dL (3.4-5.0) L 04/03/18 05:21 Globulin 3.6 g/dL (2.5-4.5) 04/03/18 05:21 Albumin/Globulin Ratio 0.9 Ratio (1.1-2.1) L 04/03/18 05:21 XRAY XRAY Interpreted by: Radiologist XRAY Findings: REPORT DISCUSS WITH PATIENT. Instructions Instructions: Fall Prevention in the Home, Slks-uz-Qmyn Chronic Obstructive Pulmonary Disease Exacerbation DASH Eating Plan Form-COPD Action Plan What You Need to Know About Smokeless Tobacco Use Hypertension Forms: Patient Portal
[2018-04-02 15:54] LABS: BASOPHILS # (AUTO) 0.3 X10^3/uL (0.0-0.1); BASOPHILS % (AUTO) 2.1 % (0.2-1.0); EOSINOPHILS # (AUTO) 0.2 x10^3/uL (0.0-0.2); EOSINOPHILS % (AUTO) 1.8 % (0.9-2.9); HEMATOCRIT 46.6 % (42.0-54.0); HEMOGLOBIN 15.9 g/dL (13.5-18.0); LYMPHOCYTES # (AUTO) 1.1 X10^3/uL (1.3-2.9); LYMPHOCYTES % (AUTO) 8.4 % (21.0-51.0); MEAN CORPUSCULAR HEMOGLOBIN 30.2 pg (27.0-34.0); MEAN CORPUSCULAR HGB CONC 34.1 g/dL (33.0-35.0); MEAN CORPUSCULAR VOLUME 88.5 fL (80.0-100.0); MEAN PLATELET VOLUME 8.3 fL (7.4-11.0); MONOCYTES # (AUTO) 0.9 x10^3/uL (0.3-0.8); MONOCYTES % (AUTO) 7.5 % (0.0-13.0); NEUTROPHILS # (AUTO) 10.1 x10^3/uL (2.2-4.8); NEUTROPHILS % (AUTO) 80.2 % (42.0-75.0); PLATELET COUNT 271 X10^3/uL (150.0-450.0); RED BLOOD COUNT 5.27 X10^6/uL (4.7-6.0); RED CELL DISTRIBUTION WIDTH 13.6 % (11.6-16.5); WHITE BLOOD COUNT 12.6 X10^3/uL (3.6-10.0)
[2018-04-02 16:03] LABS: ALANINE AMINOTRANSFERASE 41 Units/L (12-78); ALKALINE PHOSPHATASE 92 Units/L (46-116); ASPARTATE AMINO TRANSFERASE 25 Units/L (15-37); BLOOD UREA NITROGEN 14 mg/dL (7-18); CALCIUM 9.4 mg/dL (8.5-10.1); CARBON DIOXIDE 25.8 mmol/L (21-32); CHLORIDE 99 mmol/L (98-107); CREATININE 1.04 mg/dL (0.70-1.30); SODIUM 137 mmol/L (136-145); TOTAL PROTEIN 8.1 g/dL (6.4-8.2); eGFR NON BLACK RACES > 60 (>60)
--- NOTE | 2018-04-02 16:09 | RAD ---
History: Pneumonia Exam: Portable chest Comparison: 09/30/2017 Findings: The heart is normal. The pulmonary vessels are normal. There is overlying artifact along the left chest with some questionable hazy left basilar opacity laterally which is ill-defined. No effusion is seen. The right lung is clear. IMPRESSION: Overlying artifact with a questionable small infiltrate or atelectasis along the left lung base. Reported By:
[2018-04-02] MEDS: TUSSIONEX PENNKINETIC SUSP PO PRN (16:40)
[2018-04-02] MEDS ORDERED: ROCEPHIN VIAL 1 GRAM IVP ONE (17:07)
[2018-04-02] MEDS ORDERED: NIFEDIPINE CAP 10 MG PO ONE (18:04)
[2018-04-02] MEDS ORDERED: NIFEDIPINE CAP 10 MG ONE (18:05)
[2018-04-02] MEDS ORDERED: NICOTINE PATCH TD ONE (18:19)
[2018-04-02] MEDS ORDERED: CATAPRES TAB 0.2 MG PO ONE (18:34)
[2018-04-02] MEDS ORDERED: CATAPRES TAB 0.2 MG ONE (18:56)
[2018-04-02] MEDS: DUONEB 0.5 MG/3 MG NEB SCH (20:18)
[2018-04-02 20:26] VITALS: BMI 34.5
[2018-04-02] MEDS ORDERED: VISTARIL PO PRN (20:36)
[2018-04-02] MEDS ORDERED: NS 1/2 1000 ML IV 1,000 ML IV ONE (21:20)
[2018-04-02] MEDS: ROBITUSSIN DM PO SCH (21:21)
[2018-04-02] MEDS: NS 1/2 1000 ML IV 1,000 ML IV SCH (21:21)
[2018-04-03] MEDS: DUONEB 0.5 MG/3 MG NEB SCH ×3 (00:55→08:43)
[2018-04-03 05:55] LABS: BASOPHILS # (AUTO) 0.1 X10^3/uL (0.0-0.1); BASOPHILS % (AUTO) 0.7 % (0.2-1.0); EOSINOPHILS # (AUTO) 0.4 x10^3/uL (0.0-0.2); EOSINOPHILS % (AUTO) 4.3 % (0.9-2.9); HEMATOCRIT 40.5 % (42.0-54.0); LYMPHOCYTES # (AUTO) 1.2 X10^3/uL (1.3-2.9); LYMPHOCYTES % (AUTO) 13.8 % (21.0-51.0); MEAN CORPUSCULAR HEMOGLOBIN 30.5 pg (27.0-34.0); MEAN CORPUSCULAR HGB CONC 33.9 g/dL (33.0-35.0); MEAN CORPUSCULAR VOLUME 89.8 fL (80.0-100.0); MEAN PLATELET VOLUME 8.4 fL (7.4-11.0); MONOCYTES % (AUTO) 10.5 % (0.0-13.0); NEUTROPHILS # (AUTO) 6.4 x10^3/uL (2.2-4.8); NEUTROPHILS % (AUTO) 70.7 % (42.0-75.0); PLATELET COUNT 212 X10^3/uL (150.0-450.0); RED BLOOD COUNT 4.51 X10^6/uL (4.7-6.0)
[2018-04-03 06:05] LABS: HEMOGLOBIN 13.7 g/dL (13.5-18.0)
[2018-04-03 06:09] LABS: ALANINE AMINOTRANSFERASE 33 Units/L (12-78); ALBUMIN 3.3 g/dL (3.4-5.0); ALKALINE PHOSPHATASE 75 Units/L (46-116); ASPARTATE AMINO TRANSFERASE 19 Units/L (15-37); BLOOD UREA NITROGEN 15 mg/dL (7-18); CALCIUM 8.7 mg/dL (8.5-10.1); CARBON DIOXIDE 27.7 mmol/L (21-32); CHLORIDE 100 mmol/L (98-107); COR CA(FOR HYPOALB) 9.3 mg/dL (8.5-10.1); CREATININE 0.91 mg/dL (0.70-1.30); SODIUM 137 mmol/L (136-145); TOTAL PROTEIN 6.9 g/dL (6.4-8.2); eGFR NON BLACK RACES > 60 (>60)
[2018-04-03] MEDS: NS 1/2 1000 ML IV 1,000 ML IV SCH ×2 (08:16→10:18)
[2018-04-03] MEDS: ROBITUSSIN DM PO SCH (08:16)
[2018-04-03] MEDS: TUSSIONEX PENNKINETIC SUSP PO PRN (08:17)
[2018-04-03] MEDS ORDERED: NS 1/2 1000 ML IV 1,000 ML IV ONE (08:18)
[2018-04-03] MEDS ORDERED: LEVAQUIN PREMIX IV 750 MG 750 MG/150 ML BAG IV SCH (09:00)
[2018-04-03] MEDS ORDERED: HYDROCHLOROTHIAZIDE 12.5 MG CAP PO SCH (09:00)
[2018-04-03] MEDS ORDERED: ROCEPHIN VIAL 1 GRAM IVP SCH (09:00)
[2018-04-03] MEDS ORDERED: ZESTRIL TAB 10 MG PO SCH (09:00)
[2018-04-03 13:22] VITALS: BP 144/70
[2018-04-04] MEDS ORDERED: ROCEPHIN VIAL 1 GRAM IVP ONE (11:43)
== END 2018-04-03 13:23 | disposition home or self-care (01) ==
LOC: ER 14:23 → OBS 14:23
PROVIDERS: ADMIT Obstetrics & Gynecology Obstetrics; ATTEND Obstetrics & Gynecology Obstetrics
DX: J01.80 Other acute sinusitis; J18.8 Other pneumonia, unspecified organism
CPT/HCPCS: 36415; 71010; 71045; 80053; 83605; 85025; 87040; 87070; 87205; 94640; 94760; 96365; 96374; 96375; 99282; 99284; A4222; Q0177; G0378; J0696; J1956; J7620

== ENCOUNTER 2024-09-22 21:31 | Inpatient (IN) ==
--- NOTE | 2024-09-22 21:38 | DR.CP ---
HPI Time Seen Time Seen by Provider: 09/22/24 21:38 HPI Comment HPI Comment: 58 y/o with cad s/p stent x 2 acutely developed cp this pm; pain radiated to his neck prompting call to his brother who suggested ER. Pt then had episode n/v/d at which time he passed out; after coming to, he called ems and passed out again. He threw up and passed out a third time in the ambulance. He is currently on meds for strep throat which he's taking as prescribed and says he takes his bp medication as prescribed as well; he denies sob, palpitations, headache and dizziness. 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 Past Medical History: Anxiety, COPD, Coronary Artery Disease, CVA, Depression, Dyslipidemia, Hypertension, [place] and Sleep Apnea Past Surgical History: Yes Surgical History: Ortho Surgery Family History Family Medical History: Diabetes Mellitus, Cancer, [place], Coronary Artery Disease, Heart Failure, Sudden Cardiac and Hypertension Social History Do you use any recreational Drugs:: No ROS Review of Systems Eyes: No Symptoms Reported ENTM: No Symptoms Reported Respiratoy: No Symptoms Reported Cardiovascular: No Symptoms Reported Gastrointestinal/Abdominal: See HPI Genitourinary: No Symptoms Reported Neurological: See HPI and Weakness Musculoskeletal: No Symptoms Reported Integumentary: No Symptoms Reported Hematologic/Lymphatic: No Symptoms Reported Endocrine: No Symptoms Reported Psychiatric: No Symptoms Reported PE Vitals Vitals: Vital Signs Temperature 97.9 F Pulse Rate 107 Pulse Rate 105 Pulse Rate 104 Pulse Rate 104 Pulse Rate 107 Pulse Rate 109 Pulse Rate 106 Pulse Rate 102 Pulse Rate 102 Pulse Rate 104 Pulse Rate 103 Pulse Rate 102 Pulse Rate 106 Pulse Rate 102 Pulse Rate 104 Pulse Rate 104 Pulse Rate 107 Pulse Rate 104 Pulse Rate 104 Pulse Rate 109 Pulse Rate 106 Pulse Rate 110 Pulse Rate 112 Pulse Rate 107 Pulse Rate 104 Pulse Rate 103 Pulse Rate 105 Pulse Rate 105 Pulse Rate 104 Pulse Rate 104 Pulse Rate 104 Pulse Rate 107 Pulse Rate 107 Pulse Rate 107 Pulse Rate 109 Pulse Rate 109 Pulse Rate 109 Pulse Rate 109 Pulse Rate 107 Pulse Rate 104 Pulse Rate 101 Pulse Rate 101 Pulse Rate 101 Pulse Rate 104 Pulse Rate 100 Pulse Rate 101 Pulse Rate 99 Pulse Rate 104 Pulse Rate 103 Pulse Rate 101 Pulse Rate 101 Pulse Rate 101 Pulse Rate 102 Pulse Rate 102 Pulse Rate 102 Pulse Rate 102 Pulse Rate 102 Pulse Rate 101 Pulse Rate 104 Pulse Rate 103 Pulse Rate 105 Pulse Rate 102 Pulse Rate 106 Pulse Rate 103 Pulse Rate 100 Pulse Rate 91 Pulse Rate 89 Pulse Rate 92 Pulse Rate 86 Pulse Rate 79 Pulse Rate 76 Pulse Rate 76 Pulse Rate 77 Pulse Rate 92 Pulse Rate 94 Pulse Rate 103 Pulse Rate 101 Pulse Rate 98 Pulse Rate 100 Pulse Rate 97 Respiratory Rate 18 Respiratory Rate 42 Respiratory Rate 24 Respiratory Rate 27 Respiratory Rate 27 Respiratory Rate 26 Respiratory Rate 29 Respiratory Rate 26 Respiratory Rate 26 Respiratory Rate 27 Respiratory Rate 29 Respiratory Rate 32 Respiratory Rate 26 Respiratory Rate 25 Respiratory Rate 23 Respiratory Rate 25 Respiratory Rate 26 Respiratory Rate 25 Respiratory Rate 26 Respiratory Rate 26 Respiratory Rate 26 Respiratory Rate 24 Respiratory Rate 23 Respiratory Rate 37 Respiratory Rate 29 Respiratory Rate 30 Respiratory Rate 33 Respiratory Rate 42 Respiratory Rate 19 Respiratory Rate 25 Respiratory Rate 35 Respiratory Rate 29 Respiratory Rate 27 Respiratory Rate 22 Respiratory Rate 28 Respiratory Rate 32 Respiratory Rate 35 Respiratory Rate 26 Respiratory Rate 26 Respiratory Rate 24 Respiratory Rate 24 Respiratory Rate 37 Respiratory Rate 20 Blood Pressure 161/76 Blood Pressure 156/74 Blood Pressure 159/77 Blood Pressure 151/74 Blood Pressure 155/80 Blood Pressure 160/85 Blood Pressure 141/73 Blood Pressure 157/75 Blood Pressure 152/72 Blood Pressure 148/72 Blood Pressure 133/68 Blood Pressure 129/67 Blood Pressure 127/67 Blood Pressure 144/69 Blood Pressure 140/71 Blood Pressure 143/68 Blood Pressure 150/71 Blood Pressure 142/65 Blood Pressure 142/64 Blood Pressure 154/67 Blood Pressure 162/81 Blood Pressure 162/87 Blood Pressure 150/84 Blood Pressure 144/59 Blood Pressure 148/70 Blood Pressure 134/65 Blood Pressure 138/64 Blood Pressure 156/73 Blood Pressure 157/74 Blood Pressure 159/72 Blood Pressure 164/71 Blood Pressure 172/77 Blood Pressure 150/67 Blood Pressure 150/78 Blood Pressure 165/111 Blood Pressure 168/83 Blood Pressure 166/76 Blood Pressure 150/72 Blood Pressure 139/63 Blood Pressure 152/73 Blood Pressure 152/73 Blood Pressure 145/72 Blood Pressure 145/72 Blood Pressure 143/68 Blood Pressure 150/67 Blood Pressure 139/67 Blood Pressure 129/63 Blood Pressure 161/68 Blood Pressure 132/72 Blood Pressure 176/81 Blood Pressure 148/82 Blood Pressure 150/72 Blood Pressure 170/78 Blood Pressure 173/83 Blood Pressure 165/77 Blood Pressure 167/79 Blood Pressure 171/81 Blood Pressure 176/88 Blood Pressure 172/77 Blood Pressure 169/70 Blood Pressure 187/82 Blood Pressure 161/79 Blood Pressure 124/77 Blood Pressure 120/68 Blood Pressure 130/74 Blood Pressure 76/44 Blood Pressure 73/43 Blood Pressure 68/40 Blood Pressure 72/43 Blood Pressure 90/55 Blood Pressure 137/82 Blood Pressure 138/107 O2 Sat by Pulse Oximetry 96 O2 Sat by Pulse Oximetry 98 O2 Sat by Pulse Oximetry 98 O2 Sat by Pulse Oximetry 97 O2 Sat by Pulse Oximetry 99 O2 Sat by Pulse Oximetry 98 O2 Sat by Pulse Oximetry 98 O2 Sat by Pulse Oximetry 98 O2 Sat by Pulse Oximetry 99 O2 Sat by Pulse Oximetry 98 O2 Sat by Pulse Oximetry 98 O2 Sat by Pulse Oximetry 98 O2 Sat by Pulse Oximetry 99 O2 Sat by Pulse Oximetry 99 O2 Sat by Pulse Oximetry 98 O2 Sat by Pulse Oximetry 99 O2 Sat by Pulse Oximetry 98 O2 Sat by Pulse Oximetry 99 O2 Sat by Pulse Oximetry 98 O2 Sat by Pulse Oximetry 98 O2 Sat by Pulse Oximetry 98 O2 Sat by Pulse Oximetry 100 O2 Sat by Pulse Oximetry 98 O2 Sat by Pulse Oximetry 98 O2 Sat by Pulse Oximetry 98 O2 Sat by Pulse Oximetry 98 O2 Sat by Pulse Oximetry 99 O2 Sat by Pulse Oximetry 98 O2 Sat by Pulse Oximetry 98 O2 Sat by Pulse Oximetry 97 O2 Sat by Pulse Oximetry 96 O2 Sat by Pulse Oximetry 96 O2 Sat by Pulse Oximetry 95 O2 Sat by Pulse Oximetry 97 O2 Sat by Pulse Oximetry 96 O2 Sat by Pulse Oximetry 95 O2 Sat by Pulse Oximetry 96 O2 Sat by Pulse Oximetry 97 O2 Sat by Pulse Oximetry 96 O2 Sat by Pulse Oximetry 97 O2 Sat by Pulse Oximetry 96 O2 Sat by Pulse Oximetry 99 O2 Sat by Pulse Oximetry 100 General Limitations: No Limitations General Appearance: Alert and In No Apparent Distress Head Head Exam: Normal Inspection Eyes Eye exam: Normal Appearance ENT ENT Exam: Normal Exam Chest Chest Inspection: Normal Inspection Respiratory Respiratory Exam: Normal Lung Sounds Bilat Cardiovascular Cardiovascular Exam: Regular Rate and Normal Rhythm Pulse: Normal Edema: Normal Abdominal Exam Abdominal Exam: Normal Inspection, Normal Bowel Sounds and Soft Extremities Extremities Exam: Normal Inspection Back Back Exam: Normal Inspection Neurologic Neurological Exam: Alert and Oriented X3 Psychiatric Psychiatric Exam: Anxious Skin Skin Exam: Warm, Dry, Intact and Normal Color COURSE Treatment Treatment: 58 y/o with cad s/p stent x 2 meets sepsis criteria including hypotension, tachycardia, arf and elevated lactic acid; improved after 2 liters of normal saline; work up negative including ct abd/pelvis, ua and ct brain; admit for observation w/fluids and iv abx. Consultation Call Returned: 04:52 (Dr Ross accepts admission.) [facility] Labs Reviewed Laboratory Results Reviewed?: Yes 09/22/24 21:49 09/22/24 21:49 Laboratory: WBC 18.7 X10^3/uL (3.6-10.0) H 09/22/24 21:49 RBC 5.12 X10^6/uL (4.7-6.0) 09/22/24 21:49 Hgb 16.4 g/dL (13.5-18.0) 09/22/24 21:49 Hct 48.0 % (42.0-54.0) 09/22/24 21:49 MCV 93.7 fL (80.0-100.0) 09/22/24 21:49 MCH 32.0 pg (27.0-34.0) 09/22/24 21:49 MCHC 34.2 g/dL (33.0-35.0) 09/22/24 21:49 RDW 13.6 % (11.6-16.5) 09/22/24 21:49 Plt Count 353 X10^3/uL (150.0-450.0) 09/22/24 21:49 Plt Count Comment Adequate (ADEQUATE) 09/22/24 21:49 MPV 7.4 fL (7.4-11.0) 09/22/24 21:49 Neut % (Auto) 92.3 % (42.0-75.0) H 09/22/24 21:49 Lymph % (Auto) 2.2 % (21.0-51.0) L 09/22/24 21:49 [place] % (Auto) 3.9 % (0.0-13.0) 09/22/24 21:49 Eos % (Auto) 1.0 % (0.9-2.9) 09/22/24 21:49 Baso % (Auto) 0.6 % (0.2-1.0) 09/22/24 21:49 Neut # (Auto) 17.3 x10^3/uL (2.2-4.8) H 09/22/24 21:49 Lymph # (Auto) 0.4 X10^3/uL (1.3-2.9) L 09/22/24 21:49 [place] # (Auto) 0.7 x10^3/uL (0.3-0.8) 09/22/24 21:49 Eos # (Auto) 0.2 x10^3/uL (0.0-0.2) 09/22/24 21:49 Baso # (Auto) 0.1 X10^3/uL (0.0-0.1) 09/22/24 21:49 Absolute Nucleated RBC 0.1 /100WBC 09/22/24 21:49 Total Counted 100 09/22/24 21:49 Neutrophils % (Manual) 93 % (39-76) H 09/22/24 21:49 Lymphocytes % (Manual) 2 % (13-43) L 09/22/24 21:49 Monocytes % (Manual) 4 % (4-9) 09/22/24 21:49 Eosinophils % (Manual) 1 % (0-6) 09/22/24 21:49 Plt Morphology Comment Normal (NORMAL) 09/22/24 21:49 RBC Morphology Normal (NORMAL) 09/22/24 21:49 Sodium 139 mmol/L (136-145) 09/22/24 21:49 Corrected Sodium 140 mmol/L (136-145) 09/22/24 21:49 Potassium 3.9 mmol/L (3.5-5.1) 09/22/24 21:49 Chloride 103 mmol/L (98-107) 09/22/24 21:49 Carbon Dioxide 22.2 mmol/L (21-32) 09/22/24 21:49 BUN 29 mg/dL (7-18) H 09/22/24 21:49 Creatinine 1.70 mg/dL (0.70-1.30) H 09/22/24 21:49 Est GFR (MDRD) Af Amer 53 (>60) L 09/22/24 21:49 Est GFR (MDRD) Non-Af 44 (>60) L 09/22/24 21:49 Glucose 162 mg/dL (65-99) H 09/22/24 21:49 Lactic Acid 1.9 mmol/L (0.4-2.0) 09/23/24 00:56 Calcium 10.3 mg/dL (8.5-10.1) H 09/22/24 21:49 Corrected Calcium TNP 09/22/24 21:49 Total Bilirubin 0.50 mg/dL (0.2-1.0) 09/22/24 21:49 AST 34 Units/L (15-37) 09/22/24 21:49 ALT 82 Units/L (12-78) H 09/22/24 21:49 Alkaline Phosphatase 94 Units/L (46-116) 09/22/24 21:49 Creatine Kinase 175 Units/L (39-308) 09/22/24 21:49 Troponin I High Sens 19.9 ng/L (4.0-60.0) 09/23/24 00:56 Total Protein 9.0 g/dL (6.4-8.2) H 09/22/24 21:49 Albumin 4.2 g/dL (3.4-5.0) 09/22/24 21:49 Globulin 4.8 g/dL (2.5-4.5) H 09/22/24 21:49 Albumin/Globulin Ratio 0.9 Ratio (1.1-2.1) L 09/22/24 21:49 Specimen Type Clean catch urine 09/23/24 01:46 Urine Color Yellow (YELLOW) 09/23/24 01:46 Urine Appearance Clear (CLEAR) 09/23/24 01:46 Urine pH 5.0 (5.0 - 8.0) 09/23/24 01:46 Ur Specific [place] 1.025 (1.000-1.030) 09/23/24 01:46 Urine Protein 2+ (NEGATIVE) 09/23/24 01:46 Urine Glucose (UA) Negative (NEGATIVE) 09/23/24 01:46 Urine Ketones Negative (NEGATIVE) 09/23/24 01:46 Urine Blood Negative (NEGATIVE) 09/23/24 01:46 Urine Nitrite Negative (NEGATIVE) 09/23/24 01:46 Urine Bilirubin Negative (NEGATIVE) 09/23/24 01:46 Urine Urobilinogen Normal (NORMAL) 09/23/24 01:46 Ur Leukocyte Esterase Negative (NEGATIVE) 09/23/24 01:46 Urine RBC None seen /HPF (0-3) 09/23/24 01:46 Urine WBC None seen /HPF (0-5) 09/23/24 01:46 Ur Squamous Epith Cells Few /HPF (NEGATIVE) 09/23/24 01:46 Urine Bacteria Negative /HPF (NEGATIVE) 09/23/24 01:46 Hyaline Casts Few /LPF (NEGATIVE) 09/23/24 01:46 Ur Culture Indicated? No/not indicated 09/23/24 01:46 SARS-CoV-2 (PCR) Negative (NEGATIVE) 09/22/24 22:16 Influenza Type A (PCR) Negative (NEGATIVE) 09/22/24 22:16 Influenza Type B (PCR) Negative (NEGATIVE) 09/22/24 22:16 RSV (PCR) Negative (NEGATIVE) 09/22/24 22:16 XRAY XRAY Interpreted by: Radiologist X-ray Results: ct abd/pelvis w/o: 1. Minimal colonic diverticulosis. 2. No other significant abnormality identified. brain ct: There is no evidence of an acute intracranial bleed. There is no evidence of a mass or midline shift. There is no evidence of an extra-axial fluid collection. The avelar-white matter differentiation is within normal limits. The visualized bones are unremarkable. The visualized sinuses demonstrates an air-fluid level in the left maxillary sinus. This may represent an infectious or inflammatory sinus process. The mastoid air cells are well-aerated. Opioid Opioid Risk Tool Age ([place] box if 16-45): No History of Preadolescent Sexual Abuse: No Total: 0 Total Score Risk Category: Low Risk Copyright: Tyrese TOPETE predicting aberrant behaviors Discharge Plan Diagnosis Discharge Problem: Sepsis, Gastroenteritis, Acute renal failure (ARF), Syncope Discharge Plan Patient Disposition: ADMITTED INPATIENT Condition: Stable
--- NOTE | 2024-09-22 21:41 | EKG ---
Test Reason : CHEST PAIN Blood Pressure : */* mmHG Vent. Rate : 102 BPM Atrial Rate : 102 BPM P-R Int : 168 ms QRS Dur : 92 ms QT Int : 356 ms P-R-T Axes : 13 4 83 degrees QTc Int : 463 ms Sinus tachycardia Low voltage QRS Borderline ECG HR up since last ekg Confirmed by Arvind Alfaro MD ([id number]) on 09/23/2024 7:16:43 AM Referred By: Confirmed By: Arvind Alfaro MD
[2024-09-22 22:05] LABS: HEMOGLOBIN 16.4 g/dL (13.5-18.0)
[2024-09-22] MEDS: ZOFRAN INJ 4 MG VIAL IVP ONE (22:07)
[2024-09-22 22:08] LABS: BASOPHILS # (AUTO) 0.1 X10^3/uL (0.0-0.1); BASOPHILS % (AUTO) 0.6 % (0.2-1.0); EOSINOPHILS # (AUTO) 0.2 x10^3/uL (0.0-0.2); LYMPHOCYTES # (AUTO) 0.4 X10^3/uL (1.3-2.9); LYMPHOCYTES % (AUTO) 2.2 % (21.0-51.0); MEAN CORPUSCULAR HGB CONC 34.2 g/dL (33.0-35.0); MEAN CORPUSCULAR VOLUME 93.7 fL (80.0-100.0); MEAN PLATELET VOLUME 7.4 fL (7.4-11.0); MONOCYTES # (AUTO) 0.7 x10^3/uL (0.3-0.8); MONOCYTES % (AUTO) 3.9 % (0.0-13.0); NEUTROPHILS # (AUTO) 17.3 x10^3/uL (2.2-4.8); NEUTROPHILS % (AUTO) 92.3 % (42.0-75.0); PLATELET COUNT 353 X10^3/uL (150.0-450.0); RED BLOOD COUNT 5.12 X10^6/uL (4.7-6.0); RED CELL DISTRIBUTION WIDTH 13.6 % (11.6-16.5); WHITE BLOOD COUNT 18.7 X10^3/uL (3.6-10.0)
[2024-09-22 22:18] LABS: ALANINE AMINOTRANSFERASE 82 Units/L (12-78); ALBUMIN 4.2 g/dL (3.4-5.0); ALKALINE PHOSPHATASE 94 Units/L (46-116); ASPARTATE AMINO TRANSFERASE 34 Units/L (15-37); BLOOD UREA NITROGEN 29 mg/dL (7-18); CALCIUM 10.3 mg/dL (8.5-10.1); CARBON DIOXIDE 22.2 mmol/L (21-32); CHLORIDE 103 mmol/L (98-107); COR NA(FOR HYPERGLY) 140 mmol/L (136-145); CREATINE KINASE 175 Units/L (39-308); GLUCOSE 162 mg/dL (65-99); PLATELET MORPHOLOGY COMMENT NORMAL (NORMAL); POTASSIUM 3.9 mmol/L (3.5-5.1); SODIUM 139 mmol/L (136-145); eGFR NON BLACK RACES 44 (>60)
[2024-09-22] MEDS: NS 1,000 ML IV 1,000 ML IV ONE ×2 (22:35→23:59)
--- NOTE | 2024-09-22 22:55 | EKG ---
Test Reason : HYPOTENSION, CHEST PAIN Blood Pressure : */* mmHG Vent. Rate : 88 BPM Atrial Rate : 88 BPM P-R Int : 172 ms QRS Dur : 100 ms QT Int : 356 ms P-R-T Axes : 10 107 61 degrees QTc Int : 430 ms Normal sinus rhythm Rightward axis Borderline ECG When compared with ECG of 22-SEP-2024 21:30, (Unconfirmed) QRS axis shifted right Confirmed by Arvind Alfaro MD ([id number]) on 09/23/2024 7:14:11 AM Referred By: Confirmed By: Arvind Alfaro MD
[2024-09-22] MEDS ORDERED: CIPRO IV 400 MG PREMIX* 400 MG/200 ML IV.SOLN. IV ONE (23:56)
[2024-09-22] MEDS: CIPRO IV 400 MG PREMIX* 400 MG/200 ML IV.SOLN. IV SCH (23:59)
--- NOTE | 2024-09-23 | CT ---
EXAM: CT HEAD WITHOUT IV CONTRAST HISTORY: Syncopal episode COMPARISON: 08/21/2017 TECHNIQUE: Ax ial images were acquired of the head without IV contrast. Coronal and sagittal images were provided. All images were reviewed in a variety of windows and levels. LIMITATIONS: Please note that CT has low sensitivity and accuracy for identifying acute infarction. In addition, there are portions of the brain that are affected by beam hardening artifact which further greatly limits identification of an acute infarct. RADIATION REDUCTION TECHNIQUE: Automated exposure control, Adjustment of the mA and/or kV according to patient size, or iterative reconstruction techniques were used. FINDINGS: There is no evidence of an acute intracranial bleed. There is no evidence of a mass or midline shift. There is no evidence of an extra-axial fluid collection. The avelar-white matter differentiation is within normal limits. The visualized bones are unremarkable. The visualized sinuses demonstrates an air-fluid level in the left maxillary sinus. This may represent an infectious or inflammatory sinus process. The mastoid air cells are well-aerated. IMPRESSION: 1. THERE IS NO EVIDENCE OF AN ACUTE INTRACRANIAL BLEED THIS IS AN ELECTRONICALLY VERIFIED FINAL REPORT 09/22/2024 11:45 PM - Electronically signed by Jose Rivera MD
--- NOTE | 2024-09-23 | CT ---
PROCEDURE: CT Abdomen and Pelvis without IV Contrast. HISTORY: PT IN ED WITH [facility], RESPONDED TO PT HAVING CHEST PAIN, SOB, N/V AND A VAGAL EPISODE X1, ABD PAIN, DISTENTION S/P FALL; NV, CAD, HTN, CVA, COPD, SLEEP APNEA SX: ANGIO/STENTS, ORTHO . TECHNIQUE: Axial images were performed through the abdomen and pelvis without the administration of IV contrast with multiplanar reformations . Oral contrast was notadministered . Dose reduction techniques including Automated Exposure Control (AEC) and adjustment of mA and kV were utilized .. COMPARISON: 10/10/2017. TECHNICAL QUALITY: Satisfactory. FINDINGS: Clear lung bases. Liver, spleen, adrenals, pancreas show no abnormality. Kidneys show no stones or obstruction. Punctate vascular calcifications both renal jackson. Normal biliary tract. No ascites or pneumoperitoneum. Mild atherosclerosis aorta. No lymphadenopathy. No bowel obstruction or inflammation. Minimal colonic diverticulosis. Normal appendix. Pelvis shows no masses or free fluid normal urinary bladder. No acute bony abnormality. IMPRESSION: 1. Minimal colonic diverticulosis. 2. No other significant abnormality identified. THIS IS AN ELECTRONICALLY VERIFIED FINAL REPORT 09/22/2024 11:55 PM - Electronically signed by Yasmany Lora MD
[2024-09-23] MEDS ORDERED: FLAGYL IV PREMIX 500 MG BAG 500 MG/100 ML BAG IV ONE (00:49)
[2024-09-23] MEDS: FLAGYL IV PREMIX 500 MG BAG 500 MG/100 ML BAG IV SCH (00:51)
[2024-09-23] MEDS: NS 1,000 ML IV 1,000 ML IV SCH ×2 (00:53→06:04)
[2024-09-23 01:51] LABS: BILIRUBIN,URINE NEGATIVE (NEGATIVE); BLOOD/HEMOGLOBIN,URINE NEGATIVE (NEGATIVE); GLUCOSE, URINE NEGATIVE (NEGATIVE); KETONES,URINE NEGATIVE (NEGATIVE); LEUKOCYTE ESTERASE ,URINE NEGATIVE (NEGATIVE); NITRITES,URINE NEGATIVE (NEGATIVE); PROTEIN,URINE 2+ (NEGATIVE); UROBILINOGEN,URINE NORMAL (NORMAL)
[2024-09-23 01:52] LABS: APPEARANCE,URINE CLEAR (CLEAR); COLOR,URINE YELLOW (YELLOW)
[2024-09-23 01:57] LABS: BACTERIA,URINE NEGATIVE /HPF (NEGATIVE); HYALINE CASTS, URINE FEW /LPF (NEGATIVE); RBC,URINE NONE SEEN /HPF (0-3); SQUAMOUS EPITHELIAL CELL,UR FEW /HPF (NEGATIVE)
[2024-09-23] MEDS: CONSULT PHARMACY - POTASSIUM & MAGNESIUM XX SCH (05:25)
[2024-09-23 06:24] VITALS: BMI 33.2
[2024-09-23 07:31] LABS: BASOPHILS # (AUTO) 0.1 X10^3/uL (0.0-0.1); BASOPHILS % (AUTO) 0.4 % (0.2-1.0); EOSINOPHILS # (AUTO) 0.1 x10^3/uL (0.0-0.2); EOSINOPHILS % (AUTO) 0.5 % (0.9-2.9); HEMATOCRIT 41.2 % (42.0-54.0); HEMOGLOBIN 13.8 g/dL (13.5-18.0); LYMPHOCYTES # (AUTO) 0.2 X10^3/uL (1.3-2.9); LYMPHOCYTES % (AUTO) 1.1 % (21.0-51.0); MEAN CORPUSCULAR HEMOGLOBIN 31.5 pg (27.0-34.0); MEAN CORPUSCULAR HGB CONC 33.4 g/dL (33.0-35.0); MEAN CORPUSCULAR VOLUME 94.1 fL (80.0-100.0); MEAN PLATELET VOLUME 7.1 fL (7.4-11.0); MONOCYTES # (AUTO) 0.4 x10^3/uL (0.3-0.8); NEUTROPHILS # (AUTO) 13.5 x10^3/uL (2.2-4.8); PLATELET COUNT 254 X10^3/uL (150.0-450.0); RED BLOOD COUNT 4.38 X10^6/uL (4.7-6.0); RED CELL DISTRIBUTION WIDTH 13.2 % (11.6-16.5); WHITE BLOOD COUNT 14.2 X10^3/uL (3.6-10.0)
[2024-09-23 07:42] LABS: ALANINE AMINOTRANSFERASE 57 Units/L (12-78); ALKALINE PHOSPHATASE 66 Units/L (46-116); ASPARTATE AMINO TRANSFERASE 24 Units/L (15-37); BLOOD UREA NITROGEN 28 mg/dL (7-18); CALCIUM 8.5 mg/dL (8.5-10.1); CARBON DIOXIDE 24.9 mmol/L (21-32); CHLORIDE 103 mmol/L (98-107); COR CA(FOR HYPOALB) 9.3 mg/dL (8.5-10.1); COR NA(FOR HYPERGLY) 137 mmol/L (136-145); CREATININE 1.25 mg/dL (0.70-1.30); GLUCOSE 140 mg/dL (65-99); POTASSIUM 4.1 mmol/L (3.5-5.1); SODIUM 136 mmol/L (136-145); TOTAL PROTEIN 6.8 g/dL (6.4-8.2); eGFR NON BLACK RACES > 60 (>60)
[2024-09-23 08:47] LABS: BAND NEUTROPHILS % 1 % (0-10); PLATELET MORPHOLOGY COMMENT NORMAL (NORMAL)
[2024-09-23] MEDS: LOVENOX INJ 40 MG SYR SC SCH (08:54)
[2024-09-23] MEDS ORDERED: CONSULT PHARMACY - POTASSIUM & MAGNESIUM XX SCH (09:00)
[2024-09-23] MEDS: NORCO 5/325 MG TAB PO PRN (09:15)
[2024-09-23] MEDS: MAG-OX TAB PO SCH (09:20)
[2024-09-23 09:58] LABS: AMYLASE 39 Units/L (25-115); LIPASE 17 Units/L (16-77)
--- NOTE | 2024-09-23 10:22 | DR.H&P ---
H&P History & Physical for Day of: H&P Date: 09/23/24 Chief Complaint Chief Complaint: N/V/D, abdominal pain History of Present Illness History of Present Illness: Mr Rudolph is a 58-year-old male with a past medical history of CAD, COPD, CVA, hypertension, anxiety, depression, sleep apnea and chronic pain presented with near syncope, vomiting, diarrhea and abdominal pain. He states he initially had constipation and went to the bathroom but started feeling sick after what he was throwing up and having loose stools. He reports feeling hot and felt like he was going to pass out. This happened multiple times before he came to the ER. He states it also happened while he was in the ambulance. ER workup included negative troponin, lactic acid 2.9, elevated WBC and elevated creatinine. He had CT brain and CTAP done which did not show any abnormalities. Blood cultures were done and he was started on IV fluids and antibiotics. He reports having vomiting and diarrhea overnight. He is also having worsening right sided abdominal pain. He has never had any issues with gallbladder. Labs/imaging reviewed: - WBC 14.2 hemoglobin 13.8 potassium 4.1 creatinine 1.25 lactic acid 1.9 - Troponin negative -UA negative - CTAP and CT brain reviewed - Blood cultures pending Plan: Admit to ICU for closer monitoring. Continue hydration, replace electrolytes as per protocol. Follow-up pending cultures. Continue IV antibiotics. Order gallbladder ultrasound to assess further. Order stool studies. Continue pain control and antiemetics. Resume home medications as tolerated. Monitor a.m. labs and imaging. Time spent for clinical assessment, reviewing labs/imaging, physical exam, decision making and documentation greater than 45 mins. Past Medical History Past Medical History: Anxiety, COPD, Coronary Artery Disease, CVA, Depression, Dyslipidemia, Hypertension, [place] and Sleep Apnea Past Surgical History Surgical History: Angioplasty/Stents and Ortho Surgery Family History Family Medical History: Cancer, [place], Coronary Artery Disease, Heart Failure, Sudden Cardiac and Hypertension Social History Does patient currently use any type of tobacco product: No Type of Tobacco Use: None Does any household member use tobacco: No Alcohol Use: None Drug Use: None Medications Home Medications: Home Medications Medication Instructions Recorded Confirmed Type rosuvastatin 10 mg tablet (Crestor) 20 mg PO HS 30 day s #30 tabs 06/11/22 09/18/24 History lisinopril 40 mg tablet 40 mg PO QDAY 11/15/2309/18 History carvedilol 3.125 mg tablet 6.25 mg PO BID 02/17/24 History amlodipine 10 mg tablet 10 mg PO QDAY 04/30/2409/18 History cetirizine 10 mg tablet 10 mg PO QDAY 04/30/2409/18 History ezetimibe 10 mg tablet 10 mg PO QDAY 04/30/2409/18 History spironolactone 25 mg tablet 25 mg PO QDAY 04/30/24 History Allergies Allergies Allergy/AdvReac Type Severity Reaction Status Date / Time codeine Allergy Unknown Verified 09/02/24 15:02 meloxicam Allergy Unknown Verified 09/02/24 15:02 morphine Allergy Unknown Verified 09/02/24 15:02 Penicillins Allergy Verified 09/02/24 15:02 atorvastatin AdvReac Verified 09/02/24 15:02 [id number] Reductase AdvReac Verified 09/02/24 15:02 Inhibitor (Mbbtwhg-Jvt-Kga Reductase Inhibitor) Labs 09/23/24 07:22 09/23/24 07:22 Labs: Laboratory WBC 14.2 X10^3/uL (3.6-10.0) H 09/23/24 07:22 RBC 4.38 X10^6/uL (4.7-6.0) L 09/23/24 07:22 Hgb 13.8 g/dL (13.5-18.0) D 09/23/24 07:22 Hct 41.2 % (42.0-54.0) L 09/23/24 07:22 MCV 94.1 fL (80.0-100.0) 09/23/24 07:22 MCH 31.5 pg (27.0-34.0) 09/23/24 07:22 MCHC 33.4 g/dL (33.0-35.0) 09/23/24 07:22 RDW 13.2 % (11.6-16.5) 09/23/24 07:22 Plt Count 254 X10^3/uL (150.0-450.0) 09/23/24 07:22 Plt Count Comment Adequate (ADEQUATE) 09/23/24 07:22 MPV 7.1 fL (7.4-11.0) L 09/23/24 07:22 Neut % (Auto) 95.0 % (42.0-75.0) H 09/23/24 07:22 Lymph % (Auto) 1.1 % (21.0-51.0) L 09/23/24 07:22 Chambers % (Auto) 3.0 % (0.0-13.0) 09/23/24 07:22 Eos % (Auto) 0.5 % (0.9-2.9) L 09/23/24 07:22 Baso % (Auto) 0.4 % (0.2-1.0) 09/23/24 07:22 Neut # (Auto) 13.5 x10^3/uL (2.2-4.8) H 09/23/24 07:22 Lymph # (Auto) 0.2 X10^3/uL (1.3-2.9) L 09/23/24 07:22 Chambers # (Auto) 0.4 x10^3/uL (0.3-0.8) 09/23/24 07:22 Eos # (Auto) 0.1 x10^3/uL (0.0-0.2) 09/23/24 07:22 Baso # (Auto) 0.1 X10^3/uL (0.0-0.1) 09/23/24 07:22 Absolute Nucleated RBC 0.0 /100WBC 09/23/24 07:22 Total Counted 100 09/23/24 07:22 Neutrophils % (Manual) 95 % (39-76) H 09/23/24 07:22 Band Neutrophils % 1 % (0-10) 09/23/24 07:22 Lymphocytes % (Manual) 1 % (13-43) L 09/23/24 07:22 Monocytes % (Manual) 2 % (4-9) L 09/23/24 07:22 Eosinophils % (Manual) 1 % (0-6) 09/23/24 07:22 Plt Morphology Comment Normal (NORMAL) 09/23/24 07:22 RBC Morphology Normal (NORMAL) 09/23/24 07:22 Sodium 136 mmol/L (136-145) 09/23/24 07:22 Corrected Sodium 137 mmol/L (136-145) 09/23/24 07:22 Potassium 4.1 mmol/L (3.5-5.1) 09/23/24 07:22 Chloride 103 mmol/L (98-107) 09/23/24 07:22 Carbon Dioxide 24.9 mmol/L (21-32) 09/23/24 07:22 BUN 28 mg/dL (7-18) H 09/23/24 07:22 Creatinine 1.25 mg/dL (0.70-1.30) 09/23/24 07:22 Est GFR (MDRD) Af Amer > 60 (>60) 09/23/24 07:22 Est GFR (MDRD) Non-Af > 60 (>60) 09/23/24 07:22 Glucose 140 mg/dL (65-99) H 09/23/24 07:22 Lactic Acid 1.9 mmol/L (0.4-2.0) 09/23/24 00:56 Calcium 8.5 mg/dL (8.5-10.1) 09/23/24 07:22 Corrected Calcium 9.3 mg/dL (8.5-10.1) 09/23/24 07:22 Magnesium 1.7 mg/dL (2.0-2.9) L 09/23/24 00:56 Total Bilirubin 0.40 mg/dL (0.2-1.0) 09/23/24 07:22 AST 24 Units/L (15-37) 09/23/24 07:22 ALT 57 Units/L (12-78) 09/23/24 07:22 Alkaline Phosphatase 66 Units/L (46-116) 09/23/24 07:22 Creatine Kinase 175 Units/L (39-308) 09/22/24 21:49 Troponin I High Sens 19.9 ng/L (4.0-60.0) 09/23/24 00:56 Total Protein 6.8 g/dL (6.4-8.2) 09/23/24 07:22 Albumin 3.0 g/dL (3.4-5.0) L 09/23/24 07:22 Globulin 3.8 g/dL (2.5-4.5) 09/23/24 07:22 Albumin/Globulin Ratio 0.8 Ratio (1.1-2.1) L 09/23/24 07:22 Amylase 39 Units/L (25-115) 09/23/24 07:22 Lipase 17 Units/L (16-77) 09/23/24 07:22 Specimen Type Clean catch urine 09/23/24 01:46 Urine Color Yellow (YELLOW) 09/23/24 01:46 Urine Appearance Clear (CLEAR) 09/23/24 01:46 Urine pH 5.0 (5.0 - 8.0) 09/23/24 01:46 Ur Specific [place] 1.025 (1.000-1.030) 09/23/24 01:46 Urine Protein 2+ (NEGATIVE) 09/23/24 01:46 Urine Glucose (UA) Negative (NEGATIVE) 09/23/24 01:46 Urine Ketones Negative (NEGATIVE) 09/23/24 01:46 Urine Blood Negative (NEGATIVE) 09/23/24 01:46 Urine Nitrite Negative (NEGATIVE) 09/23/24 01:46 Urine Bilirubin Negative (NEGATIVE) 09/23/24 01:46 Urine Urobilinogen Normal (NORMAL) 09/23/24 01:46 Ur Leukocyte Esterase Negative (NEGATIVE) 09/23/24 01:46 Urine RBC None seen /HPF (0-3) 09/23/24 01:46 Urine WBC None seen /HPF (0-5) 09/23/24 01:46 Ur Squamous Epith Cells Few /HPF (NEGATIVE) 09/23/24 01:46 Urine Bacteria Negative /HPF (NEGATIVE) 09/23/24 01:46 Hyaline Casts Few /LPF (NEGATIVE) 09/23/24 01:46 Ur Culture Indicated? No/not indicated 09/23/24 01:46 SARS-CoV-2 (PCR) Negative (NEGATIVE) 09/22/24 22:16 Influenza Type A (PCR) Negative (NEGATIVE) 09/22/24 22:16 Influenza Type B (PCR) Negative (NEGATIVE) 09/22/24 22:16 RSV (PCR) Negative (NEGATIVE) 09/22/24 22:16 Review of Systems Constitutional: Weakness and Malaise Eyes: No Symptoms Reported ENT: No Symptoms Reported Respiratory: Shortness of Breath Cardiovascular: Light [place]adedness Gastrointestinal: Nausea, Vomiting, Abdominal Pain and Diarrhea Genitourinary: No Symptoms Reported Musculoskeletal: No Symptoms Reported Skin: No Symptoms Reported Neurological: No Symptoms Reported Physical Exam Vital Signs: Vital Signs Temperature 99.5 F Pulse Rate [Right Brachial] 89 Pulse Rate [Right Brachial] 93 Pulse Rate 98 Pulse Rate 101 Pulse Rate 105 Pulse Rate 107 Pulse Rate 107 Pulse Rate 106 Pulse Rate 103 Pulse Rate 103 Pulse Rate 107 Pulse Rate 105 Pulse Rate 104 Pulse Rate 104 Pulse Rate 107 Pulse Rate 109 Pulse Rate 106 Pulse Rate 102 Pulse Rate 102 Pulse Rate 104 Pulse Rate 103 Pulse Rate 102 Pulse Rate 106 Pulse Rate 102 Pulse Rate 104 Pulse Rate 104 Pulse Rate 107 Pulse Rate 104 Pulse Rate 104 Pulse Rate 109 Pulse Rate 106 Pulse Rate 110 Pulse Rate 112 Pulse Rate 107 Pulse Rate 104 Pulse Rate 103 Pulse Rate 105 Pulse Rate 105 Pulse Rate 104 Pulse Rate 104 Pulse Rate 104 Respiratory Rate 14 Respiratory Rate 20 Respiratory Rate 20 Respiratory Rate 28 Respiratory Rate 25 Blood Pressure [Right Arm] 155/72 Blood Pressure [Right Arm] 143/63 Blood Pressure 122/63 Blood Pressure 121/76 Blood Pressure 168/80 Blood Pressure 163/72 Blood Pressure 157/69 Blood Pressure 159/64 Blood Pressure 161/76 Blood Pressure 156/74 Blood Pressure 159/77 Blood Pressure 151/74 Blood Pressure 155/80 Blood Pressure 160/85 Blood Pressure 141/73 Blood Pressure 157/75 Blood Pressure 152/72 Blood Pressure 148/72 Blood Pressure 133/68 Blood Pressure 129/67 Blood Pressure 127/67 Blood Pressure 144/69 Blood Pressure 140/71 Blood Pressure 143/68 Blood Pressure 150/71 Blood Pressure 142/65 Blood Pressure 142/64 Blood Pressure 154/67 Blood Pressure 162/81 Blood Pressure 162/87 Blood Pressure 150/84 Blood Pressure 144/59 Blood Pressure 148/70 Blood Pressure 134/65 Blood Pressure 138/64 Blood Pressure 156/73 Blood Pressure 157/74 Blood Pressure 159/72 Blood Pressure 164/71 O2 Sat by Pulse Oximetry 94 O2 Sat by Pulse Oximetry 96 O2 Sat by Pulse Oximetry 94 O2 Sat by Pulse Oximetry 93 Oriented: Normal Throat: Dry Respiratory: Diminished Throughout Cardiovascular: Normal Auscultation: Bowel Sounds: Normal Tenderness: RUQ, RLQ and Moderate Skin: Normal Musculoskeletal: Normal Psychiatric: Normal Mood Description: Calm Affect: Normal Speech Pattern: Clear and Appropriate Assessment/Plan (1) Acute renal failure (ARF): Qualifiers: Acute renal failure type: unspecified Qualified Code(s): N17.9 - Acute kidney failure, unspecified Status: Acute (2) Gastroenteritis: Status: Acute (3) Syncope: Qualifiers: Syncope type: unspecified Qualified Code(s): R55 - Syncope and collapse Status: Acute (4) Dehydration: Status: Acute (5) Sepsis: Qualifiers: Sepsis type: sepsis due to unspecified organism Sepsis acute organ dysfunction status: without acute organ dysfunction Qualified Code(s): A41.9 - Sepsis, unspecified organism Status: Acute (6) Chronic obstructive pulmonary disease: Qualifiers: COPD type: unspecified COPD Qualified Code(s): J44.9 - Chronic obstructive pulmonary disease, unspecified Status: Chronic (7) HTN (hypertension): Qualifiers: Hypertension type: essential hypertension Qualified Code(s): I10 - Essential (primary) hypertension Status: Chronic (8) History of coronary artery disease: Status: Chronic Review H&P Reviewed: Yes Patient was examined?: Yes
[2024-09-23] MEDS: ASPIRIN EC 81 MG PO SCH (10:25)
[2024-09-23] MEDS: NORVASC TAB 10 MG PO SCH (10:25)
[2024-09-23] MEDS: COREG TAB 3.125 MG PO SCH (10:25)
[2024-09-23] MEDS: ZETIA TAB 10 MG PO SCH (10:25)
[2024-09-23] MEDS: PROTONIX INJ 40 MG VIAL IVP SCH (10:25)
[2024-09-23] MEDS ORDERED: DUONEB 0.5 MG/3 MG (3 mL) NEB PRN (10:58)
[2024-09-23] MEDS ORDERED: DUONEB 0.5 MG/3 MG (3 mL) NEB SCH (11:00)
[2024-09-23] MEDS: ULTRAM PO PRN (18:14)
[2024-09-23] MEDS ORDERED: ROBITUSSIN DM PO PRN (18:15)
[2024-09-23] MEDS: NEURONTIN TAB 600 MG PO SCH (20:06)
[2024-09-23] MEDS: CRESTOR TAB 10 MG PO SCH (20:07)
[2024-09-23] MEDS: PULMICORT NEB TX 0.5 MG NEB SCH (20:56)
--- NOTE | 2024-09-24 03:01 | US ---
PROCEDURE: Ultrasound Abdomen Limited Study. HISTORY: RUQ PAIN, GUARDING, TENDERNESS; . TECHNIQUE: Mar-scale and color Doppler evaluation was performed of the liver, gallbladder, common bile duct, pancreas, right kidney, and inferior vena cava . COMPARISON: None. TECHNICAL QUALITY: Satisfactory. FINDINGS: Increased echogenicity involving the liver consistent with fatty infiltration with no masses or intrahepatic biliary ductal dilatation. Hepatomegaly with right lobe measuring 21 cm. Hepatopetal and hepatofugal flow in the portal and hepatic veins, respectively. Patent hepatic artery. Gallbladder shows no stones or sludge with normal wall at 3 mm. Normal common duct at 3 mm. Pancreas obscured by bowel gas. Normal right kidney measuring 12 cm in length with cortex measuring 1.3 cm. Elevated resistive index at 0.76. Patent inferior vena cava. IMPRESSION: 1. Normal biliary tract. 2. Diffuse hepatic steatosis with hepatomegaly. 3. Elevated resistive index involving right kidney could represent chronic renal disease. THIS IS AN ELECTRONICALLY VERIFIED FINAL REPORT 09/24/2024 2:58 AM - Electronically signed by Yasmany Lora MD
[2024-09-24 05:20] LABS: BASOPHILS % (AUTO) 0.3 % (0.2-1.0); EOSINOPHILS # (AUTO) 0.2 x10^3/uL (0.0-0.2); EOSINOPHILS % (AUTO) 2.7 % (0.9-2.9); HEMATOCRIT 37.5 % (42.0-54.0); HEMOGLOBIN 12.9 g/dL (13.5-18.0); LYMPHOCYTES # (AUTO) 0.7 X10^3/uL (1.3-2.9); LYMPHOCYTES % (AUTO) 11.1 % (21.0-51.0); MEAN CORPUSCULAR HEMOGLOBIN 32.1 pg (27.0-34.0); MEAN CORPUSCULAR HGB CONC 34.4 g/dL (33.0-35.0); MEAN CORPUSCULAR VOLUME 93.2 fL (80.0-100.0); MEAN PLATELET VOLUME 7.4 fL (7.4-11.0); MONOCYTES # (AUTO) 0.6 x10^3/uL (0.3-0.8); MONOCYTES % (AUTO) 9.8 % (0.0-13.0); NEUTROPHILS # (AUTO) 4.8 x10^3/uL (2.2-4.8); NEUTROPHILS % (AUTO) 76.1 % (42.0-75.0); PLATELET COUNT 215 X10^3/uL (150.0-450.0); RED BLOOD COUNT 4.03 X10^6/uL (4.7-6.0); RED CELL DISTRIBUTION WIDTH 13.6 % (11.6-16.5); WHITE BLOOD COUNT 6.3 X10^3/uL (3.6-10.0)
[2024-09-24 05:33] LABS: ALANINE AMINOTRANSFERASE 57 Units/L (12-78); ALBUMIN 2.7 g/dL (3.4-5.0); ALKALINE PHOSPHATASE 68 Units/L (46-116); ASPARTATE AMINO TRANSFERASE 30 Units/L (15-37); BLOOD UREA NITROGEN 15 mg/dL (7-18); CALCIUM 8.2 mg/dL (8.5-10.1); CARBON DIOXIDE 30.3 mmol/L (21-32); CHLORIDE 105 mmol/L (98-107); COR CA(FOR HYPOALB) 9.2 mg/dL (8.5-10.1); COR NA(FOR HYPERGLY) 139 mmol/L (136-145); CREATININE 0.99 mg/dL (0.70-1.30); GLUCOSE 112 mg/dL (65-99); POTASSIUM 3.9 mmol/L (3.5-5.1); SODIUM 139 mmol/L (136-145); TOTAL PROTEIN 6.5 g/dL (6.4-8.2); eGFR NON BLACK RACES > 60 (>60)
[2024-09-24] MEDS: VISBIOME PROBIOTIC CAP 112.5 B or equivalent PO SCH (11:30)
[2024-09-24 12:02] LABS: CRYPTOSPORIDIUM PARVUM ANTIGEN NEGATIVE (NEGATIVE); GIARDIA LAMBLIA ANTIGEN NEGATIVE (NEGATIVE)
[2024-09-24] MEDS: NS IV ONE (18:34)
[2024-09-24] MEDS: KINEVAC IV ONE (18:34)
--- NOTE | 2024-09-24 18:58 | NM ---
EXAM: HIDA/HEPATOBILIARY SCAN W/EF HISTORY: abd pain/RUQ,n v; 6.2mCi 99mTc Choletec 2.1mcg Kinevac COMPARISON: Gallbladder ultrasound examination dated September 23, 2024 TECHNIQUE: Multiple scintigraphic images of the abdomen were obtained the intravenous administration of 6.2 mCi of technetium labeled Choletec. Following distention of the gallbladder with radiotracer a slow intravenous infusion of 2.1 micrograms of Kinevac was performed. An estimated gallbladder ejection fraction was calculated. FINDINGS: Homogeneous uptake of radiotracer is seen throughout the liver. The intrabiliary ductal system is not appreciably dilated. The common hepatic and common bile duct are not dilated and show a normal biliary-bowel transit. The gallbladder is observed to fill normally without evidence for cystic duct obstruction to suggest acute cholecystitis. Additionally, a normal gallbladder ejection fraction of 41% (normal > 35%) is observed. IMPRESSION: 1. No evidence of acute cholecystitis or acute hepatobiliary disease or dysfunction in this patient. 2. Normal gallbladder ejection fraction of 41%. THIS IS AN ELECTRONICALLY VERIFIED FINAL REPORT 09/24/2024 6:54 PM - Electronically signed by Gigi Vera MD
[2024-09-24] MEDS: MAALOX or MYLANTA PO PRN (20:40)
[2024-09-24] MEDS: ALPRAZOLAM ODT PO PRN (22:52)
[2024-09-25 04:53] LABS: BASOPHILS % (AUTO) 0.3 % (0.2-1.0); EOSINOPHILS # (AUTO) 0.2 x10^3/uL (0.0-0.2); EOSINOPHILS % (AUTO) 2.5 % (0.9-2.9); HEMATOCRIT 35.5 % (42.0-54.0); HEMOGLOBIN 12.5 g/dL (13.5-18.0); LYMPHOCYTES # (AUTO) 1.1 X10^3/uL (1.3-2.9); LYMPHOCYTES % (AUTO) 11.7 % (21.0-51.0); MEAN CORPUSCULAR HEMOGLOBIN 32.6 pg (27.0-34.0); MEAN CORPUSCULAR HGB CONC 35.2 g/dL (33.0-35.0); MEAN CORPUSCULAR VOLUME 92.7 fL (80.0-100.0); MEAN PLATELET VOLUME 7.3 fL (7.4-11.0); MONOCYTES # (AUTO) 0.9 x10^3/uL (0.3-0.8); MONOCYTES % (AUTO) 9.3 % (0.0-13.0); NEUTROPHILS # (AUTO) 7.1 x10^3/uL (2.2-4.8); NEUTROPHILS % (AUTO) 76.2 % (42.0-75.0); PLATELET COUNT 217 X10^3/uL (150.0-450.0); RED BLOOD COUNT 3.83 X10^6/uL (4.7-6.0); RED CELL DISTRIBUTION WIDTH 13.1 % (11.6-16.5); WHITE BLOOD COUNT 9.3 X10^3/uL (3.6-10.0)
[2024-09-25 05:05] LABS: ALANINE AMINOTRANSFERASE 67 Units/L (12-78); ALBUMIN 2.8 g/dL (3.4-5.0); ALKALINE PHOSPHATASE 68 Units/L (46-116); ASPARTATE AMINO TRANSFERASE 35 Units/L (15-37); BLOOD UREA NITROGEN 9 mg/dL (7-18); CALCIUM 8.7 mg/dL (8.5-10.1); CARBON DIOXIDE 26.1 mmol/L (21-32); CHLORIDE 106 mmol/L (98-107); COR CA(FOR HYPOALB) 9.7 mg/dL (8.5-10.1); CREATININE 0.91 mg/dL (0.70-1.30); GLUCOSE 97 mg/dL (65-99); POTASSIUM 3.9 mmol/L (3.5-5.1); SODIUM 141 mmol/L (136-145); TOTAL PROTEIN 6.6 g/dL (6.4-8.2); eGFR NON BLACK RACES > 60 (>60)
--- NOTE | 2024-09-25 08:32 | RAD ---
EXAM: CHEST, 1 VIEW HISTORY: SOB; COMPARISON: 04/30/2024 r.[email or web address] cardiac silhouette. No focal consolidation, pleural effusion, or visible pneumothorax. IMPRESSION: No acute cardiopulmonary findings. THIS IS AN ELECTRONICALLY VERIFIED FINAL REPORT 09/25/2024 8:29 AM - Electronically signed by Jake Cmapuzano MD
--- NOTE | 2024-09-25 09:44 | PCM.PROG ---
Progress Note Progress Note for Day of Date of Exam: 09/24/24 Subjective Subjective: Patient is a 58-year-old male with a past medical history of CAD, COPD, CVA, hypertension, anxiety, depression, sleep apnea and chronic pain admitted for acute renal failure, gastroenteritis, dehydration. This morning he is resting in bed. No acute events overnight. He reports he has bloating and diffuse abdominal pain. Blood cultures were done and he was started on IV fluids and antibiotics. Labs/imaging reviewed: - WBC 6.3, hemoglobin 12.9, Plt 215, Na 139, potassium 3.9, creatinine 0.99, Glucose 112, - Gallbladder U/S negative - CTAP and CT brain reviewed - Blood cultures pending Plan: Admit to ICU for closer monitoring. Continue hydration, replace electrolytes as per protocol. Follow-up pending cultures. Continue IV antibiotics. Order HIDA to assess further. Repeat stool culture AIT. Consult General Surgery-Dr Davidson. Continue pain control and antiemetics. Resume home medications as tolerated. Monitor a.m. labs and imaging. Time spent for clinical assessment, reviewing labs/imaging, physical exam, decision making and documentation greater than 45 mins. Past Medical Family Social History Allergies: Allergies codeine Allergy (Unknown, Verified 09/02/24 15:02) meloxicam Allergy (Unknown, Verified 09/02/24 15:02) Reason: Drug allergy morphine Allergy (Unknown, Verified 09/02/24 15:02) Penicillins Allergy (Verified 09/02/24 15:02) Rash atorvastatin Adverse Reaction (Verified 09/02/24 15:02) Nghsgtr-OSY-LqQ Reductase Inhibitor (Xtwuvtb-Uah-Qvx Reductase Inhibitor) Adverse Reaction (Verified 09/02/24 15:02) Review of Systems ROS changes noted: see HPI Vital Signs and I&O's Vital Signs: Vital Signs Temperature 97.5 F Temperature 98.2 F Pulse Rate [Right Brachial] 68 Pulse Rate [Right Brachial] 66 Pulse Rate 64 Respiratory Rate 19 Respiratory Rate 21 Respiratory Rate 22 Respiratory Rate 23 Respiratory Rate 21 Respiratory Rate 22 Blood Pressure [Right Arm] 165/78 Blood Pressure [Right Arm] 152/72 Blood Pressure 160/72 O2 Sat by Pulse Oximetry 97 O2 Sat by Pulse Oximetry 95 O2 Sat by Pulse Oximetry 95 Intake and Output: Intake & Output 09/21/24 09/22/24 09/23/24 09/24/24 23:59 23:59 23:59 23:59 Intake Total 3011 / 3011 828 / 828 Output Total 300 / 300 601 / 601 Balance 2711 / 2711 227 / 227 Physical Exam Oriented: Normal Throat: Dry Respiratory: Normal Cardiovascular: Normal Auscultation: Bowel Sounds: Normal Tenderness: RUQ, RLQ and Moderate Skin: Normal Musculoskeletal: Normal Psychiatric: Normal Mood Description: Calm Affect: Normal Speech Pattern: Clear and Appropriate Laboratory and Diagnostics 09/25/24 04:17 09/25/24 04:17 Labs: 09/23/24 10:47 Stool Stool Culture - Preliminary 09/23/24 10:47 Stool - Final 09/22/24 23:02 Blood Blood Culture - Preliminary 09/22/24 22:52 Blood Blood Culture - Preliminary Laboratory WBC 6.3 X10^3/uL (3.6-10.0) 09/24/24 04:20 RBC 4.03 X10^6/uL (4.7-6.0) L 09/24/24 04:20 Hgb 12.9 g/dL (13.5-18.0) L 09/24/24 04:20 Hct 37.5 % (42.0-54.0) L 09/24/24 04:20 MCV 93.2 fL (80.0-100.0) 09/24/24 04:20 MCH 32.1 pg (27.0-34.0) 09/24/24 04:20 MCHC 34.4 g/dL (33.0-35.0) 09/24/24 04:20 RDW 13.6 % (11.6-16.5) 09/24/24 04:20 Plt Count 215 X10^3/uL (150.0-450.0) 09/24/24 04:20 Plt Count Comment Adequate (ADEQUATE) 09/23/24 07:22 MPV 7.4 fL (7.4-11.0) 09/24/24 04:20 Neut % (Auto) 76.1 % (42.0-75.0) H 09/24/24 04:20 Lymph % (Auto) 11.1 % (21.0-51.0) L 09/24/24 04:20 [place] % (Auto) 9.8 % (0.0-13.0) 09/24/24 04:20 Eos % (Auto) 2.7 % (0.9-2.9) 09/24/24 04:20 Baso % (Auto) 0.3 % (0.2-1.0) 09/24/24 04:20 Neut # (Auto) 4.8 x10^3/uL (2.2-4.8) 09/24/24 04:20 Lymph # (Auto) 0.7 X10^3/uL (1.3-2.9) L 09/24/24 04:20 [place] # (Auto) 0.6 x10^3/uL (0.3-0.8) 09/24/24 04:20 Eos # (Auto) 0.2 x10^3/uL (0.0-0.2) 09/24/24 04:20 Baso # (Auto) 0.0 X10^3/uL (0.0-0.1) 09/24/24 04:20 Absolute Nucleated RBC 0.0 /100WBC 09/24/24 04:20 Total Counted 100 09/23/24 07:22 Neutrophils % (Manual) 95 % (39-76) H 09/23/24 07:22 Band Neutrophils % 1 % (0-10) 09/23/24 07:22 Lymphocytes % (Manual) 1 % (13-43) L 09/23/24 07:22 Monocytes % (Manual) 2 % (4-9) L 09/23/24 07:22 Eosinophils % (Manual) 1 % (0-6) 09/23/24 07:22 Plt Morphology Comment Normal (NORMAL) 09/23/24 07:22 RBC Morphology Normal (NORMAL) 09/23/24 07:22 Sodium 139 mmol/L (136-145) 09/24/24 04:20 Corrected Sodium 139 mmol/L (136-145) 09/24/24 04:20 Potassium 3.9 mmol/L (3.5-5.1) 09/24/24 04:20 Chloride 105 mmol/L (98-107) 09/24/24 04:20 Carbon Dioxide 30.3 mmol/L (21-32) 09/24/24 04:20 BUN 15 mg/dL (7-18) 09/24/24 04:20 Creatinine 0.99 mg/dL (0.70-1.30) 09/24/24 04:20 Est GFR (MDRD) Af Amer > 60 (>60) 09/24/24 04:20 Est GFR (MDRD) Non-Af > 60 (>60) 09/24/24 04:20 Glucose 112 mg/dL (65-99) H 09/24/24 04:20 Lactic Acid 1.9 mmol/L (0.4-2.0) 09/23/24 00:56 Calcium 8.2 mg/dL (8.5-10.1) L 09/24/24 04:20 Corrected Calcium 9.2 mg/dL (8.5-10.1) 09/24/24 04:20 Magnesium 2.0 mg/dL (2.0-2.9) 09/24/24 04:20 Total Bilirubin 0.30 mg/dL (0.2-1.0) 09/24/24 04:20 AST 30 Units/L (15-37) 09/24/24 04:20 ALT 57 Units/L (12-78) 09/24/24 04:20 Alkaline Phosphatase 68 Units/L (46-116) 09/24/24 04:20 Creatine Kinase 175 Units/L (39-308) 09/22/24 21:49 Troponin I High Sens 19.9 ng/L (4.0-60.0) 09/23/24 00:56 Total Protein 6.5 g/dL (6.4-8.2) 09/24/24 04:20 Albumin 2.7 g/dL (3.4-5.0) L 09/24/24 04:20 Globulin 3.8 g/dL (2.5-4.5) 09/24/24 04:20 Albumin/Globulin Ratio 0.7 Ratio (1.1-2.1) L 09/24/24 04:20 Amylase 39 Units/L (25-115) 09/23/24 07:22 Lipase 17 Units/L (16-77) 09/23/24 07:22 Specimen Type Clean catch urine 09/23/24 01:46 Urine Color Yellow (YELLOW) 09/23/24 01:46 Urine Appearance Clear (CLEAR) 09/23/24 01:46 Urine pH 5.0 (5.0 - 8.0) 09/23/24 01:46 Ur Specific [place] 1.025 (1.000-1.030) 09/23/24 01:46 Urine Protein 2+ (NEGATIVE) 09/23/24 01:46 Urine Glucose (UA) Negative (NEGATIVE) 09/23/24 01:46 Urine Ketones Negative (NEGATIVE) 09/23/24 01:46 Urine Blood Negative (NEGATIVE) 09/23/24 01:46 Urine Nitrite Negative (NEGATIVE) 09/23/24 01:46 Urine Bilirubin Negative (NEGATIVE) 09/23/24 01:46 Urine Urobilinogen Normal (NORMAL) 09/23/24 01:46 Ur Leukocyte Esterase Negative (NEGATIVE) 09/23/24 01:46 Urine RBC None seen /HPF (0-3) 09/23/24 01:46 Urine WBC None seen /HPF (0-5) 09/23/24 01:46 Ur Squamous Epith Cells Few /HPF (NEGATIVE) 09/23/24 01:46 Urine Bacteria Negative /HPF (NEGATIVE) 09/23/24 01:46 Hyaline Casts Few /LPF (NEGATIVE) 09/23/24 01:46 Ur Culture Indicated? No/not indicated 09/23/24 01:46 Stl Occult Blood (IFOB) Positive (NEGATIVE) A 09/23/24 10:47 Stool for White Cells Positive (NEGATIVE) A 09/23/24 10:47 Stl C. diff Tox B Gene Negative (NEGATIVE) 09/23/24 10:47 Stl C. diff [id number] Presumptive negative (NEGATIVE) 09/23/24 10:47 Stool H. pylori Ag Negative (NEGATIVE) 09/23/24 10:47 SARS-CoV-2 (PCR) Negative (NEGATIVE) 09/22/24 22:16 Influenza Type A (PCR) Negative (NEGATIVE) 09/22/24 22:16 Influenza Type B (PCR) Negative (NEGATIVE) 09/22/24 22:16 RSV (PCR) Negative (NEGATIVE) 09/22/24 22:16 Plan (1) Acute renal failure (ARF): Status: Acute Qualifiers: Acute renal failure type: unspecified Qualified Code(s): N17.9 - Acute kidney failure, unspecified (2) Gastroenteritis: Status: Acute (3) Syncope: Status: Acute Qualifiers: Syncope type: unspecified Qualified Code(s): R55 - Syncope and collapse (4) Dehydration: Status: Acute (5) Sepsis: Status: Acute Qualifiers: Sepsis acute organ dysfunction status: without acute organ dysfunction Sepsis type: sepsis due to unspecified organism Qualified Code(s): A41.9 - Sepsis, unspecified organism (6) Chronic obstructive pulmonary disease: Status: Chronic Qualifiers: COPD type: unspecified COPD Qualified Code(s): J44.9 - Chronic obstructive pulmonary disease, unspecified (7) HTN (hypertension): Status: Chronic Qualifiers: Hypertension type: essential hypertension Qualified Code(s): I10 - Essential (primary) hypertension (8) History of coronary artery disease: Status: Chronic
[2024-09-25] MEDS: ZOFRAN INJ 4 MG VIAL IVP PRN (10:03)
[2024-09-25] MEDS ORDERED: OMNIPAQUE 350 mg/mL 100 mL BTL 100 ML ONE (10:39)
[2024-09-25] MEDS: XYLOCAINE 2 % (PLAIN) ONE (11:06)
[2024-09-25] MEDS: DIPRIVAN VIAL 20 ML ONE (11:12)
--- NOTE | 2024-09-25 11:49 | CT ---
EXAM: CT PULMONARY ANGIOGRAM CHEST WITH CONTRAST (PE PROTOCOL) HISTORY: SOB, ELEV D DIMER; VT, CAD, HTN, CVA, COPD, SLEEP APNEA SX: ANGIO/STENTS, ORTHO COMPARISON: Chest x-ray dated 09/24/2024. TECHNIQUE: Axial CT images were obtained through the chest after the intravenous administration of IV contrast. Coronal reformatted images were included. Maximum intensity projection (MIP) images were performed per pulmonary angiogram protocol. Informed written consent was obtained prior to contrast administration. All CT scans at this facility use dose modulation, iterative reconstruction, and/or weight based dosing when appropriate to reduce radiation dose to as low as reasonably achievable. FINDINGS: Exam mildly degraded by patient respiratory motion artifact. No evidence of pulmonary embolism. Normal caliber thoracic aorta and main pulmonary artery. Moderate coronary artery calcifications. Cardiomegaly. No pericardial effusion or thoracic lymphadenopathy. Trachea is midline and central airways are patent. Moderate respiratory motion. No focal consolidation, pleural effusion, or pneumothorax. No acute osseous findings. Mild multilevel degenerative disc disease. No acute findings in the visualized upper abdomen. IMPRESSION: 1. Mild respiratory motion artifact. No acute findings. No evidence of pulmonary embolism. 2. Moderate coronary artery calcifications. THIS IS AN ELECTRONICALLY VERIFIED FINAL REPORT 09/25/2024 11:46 AM - Electronically signed by Jake Campuzano MD
[2024-09-25] MEDS: BUTT CREAM (COMPOUND) TOP PRN (14:50)
[2024-09-26 04:04] VITALS: PULSE 65
[2024-09-26 05:36] LABS: BASOPHILS # (AUTO) 0.1 X10^3/uL (0.0-0.1); BASOPHILS % (AUTO) 0.8 % (0.2-1.0); EOSINOPHILS # (AUTO) 0.2 x10^3/uL (0.0-0.2); EOSINOPHILS % (AUTO) 2.4 % (0.9-2.9); HEMATOCRIT 34.4 % (42.0-54.0); LYMPHOCYTES # (AUTO) 1.1 X10^3/uL (1.3-2.9); MEAN CORPUSCULAR HEMOGLOBIN 32.1 pg (27.0-34.0); MEAN CORPUSCULAR HGB CONC 34.8 g/dL (33.0-35.0); MEAN CORPUSCULAR VOLUME 92.4 fL (80.0-100.0); MEAN PLATELET VOLUME 7.5 fL (7.4-11.0); MONOCYTES # (AUTO) 0.7 x10^3/uL (0.3-0.8); MONOCYTES % (AUTO) 9.5 % (0.0-13.0); NEUTROPHILS # (AUTO) 4.9 x10^3/uL (2.2-4.8); NEUTROPHILS % (AUTO) 71.3 % (42.0-75.0); PLATELET COUNT 204 X10^3/uL (150.0-450.0); RED BLOOD COUNT 3.73 X10^6/uL (4.7-6.0); WHITE BLOOD COUNT 6.9 X10^3/uL (3.6-10.0)
[2024-09-26 05:49] LABS: ALANINE AMINOTRANSFERASE 60 Units/L (12-78); ALBUMIN 2.6 g/dL (3.4-5.0); ALKALINE PHOSPHATASE 63 Units/L (46-116); ASPARTATE AMINO TRANSFERASE 33 Units/L (15-37); BLOOD UREA NITROGEN 6 mg/dL (7-18); CALCIUM 8.7 mg/dL (8.5-10.1); CARBON DIOXIDE 34.2 mmol/L (21-32); CHLORIDE 107 mmol/L (98-107); COR CA(FOR HYPOALB) 9.8 mg/dL (8.5-10.1); CREATININE 0.82 mg/dL (0.70-1.30); GLUCOSE 104 mg/dL (65-99); POTASSIUM 4.2 mmol/L (3.5-5.1); SODIUM 143 mmol/L (136-145); TOTAL PROTEIN 6.1 g/dL (6.4-8.2); eGFR NON BLACK RACES > 60 (>60)
[2024-09-26 07:59] VITALS: BP 187/84; RESP 21; TEMP 98.2; O2SAT 96
--- NOTE | 2024-09-30 16:21 | PCM.PROG ---
Progress Note Progress Note for Day of Date of Exam: 09/25/24 Subjective Subjective: Patient is a 58-year-old male with a past medical history of CAD, COPD, CVA, hypertension, anxiety, depression, sleep apnea and chronic pain admitted for acute renal failure, gastroenteritis, dehydration. This morning he is resting in bed. No acute events overnight. He continues to have some abdominal pain and distention. Labs/imaging reviewed: -WBC 9.3, hemoglobin 12.5, platelets 217, sodium 141, potassium 3.9, creatinine 0.91, glucose 97, amylase/lipase within normal limits. - Gallbladder U/S negative, HIDA negative - CTAP and CT brain reviewed - Blood cultures pending Plan: ICU for closer monitoring. Continue hydration, replace electrolytes as per protocol. Follow-up pending cultures. Continue IV antibiotics. Repeat stool culture AIT pending. General Surgery-Dr Davidson following. Plan for possible EGD. Continue pain control and antiemetics. Resume home medications as tolerated. Monitor a.m. labs and imaging. Time spent for clinical assessment, reviewing labs/imaging, physical exam, decision making and documentation greater than 45 mins. Past Medical Family Social History Allergies: Allergies codeine Allergy (Unknown, Verified 09/02/24 15:02) meloxicam Allergy (Unknown, Verified 09/02/24 15:02) Reason: Drug allergy morphine Allergy (Unknown, Verified 09/02/24 15:02) Penicillins Allergy (Verified 09/02/24 15:02) Rash atorvastatin Adverse Reaction (Verified 09/02/24 15:02) Hzivrbb-OYN-WbH Reductase Inhibitor (Hrlxwaj-Uvl-Ryj Reductase Inhibitor) Adverse Reaction (Verified 09/02/24 15:02) Review of Systems ROS changes noted: see HPI Physical Exam Oriented: Normal Throat: Normal Respiratory: Normal Cardiovascular: Normal Auscultation: Bowel Sounds: Normal Tenderness: RUQ, RLQ and Moderate Skin: Normal Musculoskeletal: Normal Psychiatric: Normal Mood Description: Calm Affect: Normal Speech Pattern: Clear and Appropriate Laboratory and Diagnostics 09/26/24 05:23 09/26/24 05:23 Labs: 09/22/24 23:02 Blood Blood Culture - Final 09/22/24 22:52 Blood Blood Culture - Final 09/23/24 10:47 Stool Stool Culture - Final 09/23/24 10:47 Stool - Final Laboratory WBC 6.9 X10^3/uL (3.6-10.0) 09/26/24 05:23 RBC 3.73 X10^6/uL (4.7-6.0) L 09/26/24 05:23 Hgb 12.0 g/dL (13.5-18.0) L 09/26/24 05:23 Hct 34.4 % (42.0-54.0) L 09/26/24 05:23 MCV 92.4 fL (80.0-100.0) 09/26/24 05:23 MCH 32.1 pg (27.0-34.0) 09/26/24 05:23 MCHC 34.8 g/dL (33.0-35.0) 09/26/24 05:23 RDW 13.0 % (11.6-16.5) 09/26/24 05:23 Plt Count 204 X10^3/uL (150.0-450.0) 09/26/24 05:23 Plt Count Comment Adequate (ADEQUATE) 09/23/24 07:22 MPV 7.5 fL (7.4-11.0) 09/26/24 05:23 Neut % (Auto) 71.3 % (42.0-75.0) 09/26/24 05:23 Lymph % (Auto) 16.0 % (21.0-51.0) L 09/26/24 05:23 [place] % (Auto) 9.5 % (0.0-13.0) 09/26/24 05:23 Eos % (Auto) 2.4 % (0.9-2.9) 09/26/24 05:23 Baso % (Auto) 0.8 % (0.2-1.0) 09/26/24 05:23 Neut # (Auto) 4.9 x10^3/uL (2.2-4.8) H 09/26/24 05:23 Lymph # (Auto) 1.1 X10^3/uL (1.3-2.9) L 09/26/24 05:23 [place] # (Auto) 0.7 x10^3/uL (0.3-0.8) 09/26/24 05:23 Eos # (Auto) 0.2 x10^3/uL (0.0-0.2) 09/26/24 05:23 Baso # (Auto) 0.1 X10^3/uL (0.0-0.1) 09/26/24 05:23 Absolute Nucleated RBC 0.0 /100WBC 09/26/24 05:23 Total Counted 100 09/23/24 07:22 Neutrophils % (Manual) 95 % (39-76) H 09/23/24 07:22 Band Neutrophils % 1 % (0-10) 09/23/24 07:22 Lymphocytes % (Manual) 1 % (13-43) L 09/23/24 07:22 Monocytes % (Manual) 2 % (4-9) L 09/23/24 07:22 Eosinophils % (Manual) 1 % (0-6) 09/23/24 07:22 Plt Morphology Comment Normal (NORMAL) 09/23/24 07:22 RBC Morphology Normal (NORMAL) 09/23/24 07:22 D-Dimer 0.63 ug/ml (0.0-0.57) H 09/24/24 11:03 Sodium 143 mmol/L (136-145) 09/26/24 05:23 Corrected Sodium TNP 09/26/24 05:23 Potassium 4.2 mmol/L (3.5-5.1) 09/26/24 05:23 Chloride 107 mmol/L (98-107) 09/26/24 05:23 Carbon Dioxide 34.2 mmol/L (21-32) H 09/26/24 05:23 BUN 6 mg/dL (7-18) L 09/26/24 05:23 Creatinine 0.82 mg/dL (0.70-1.30) 09/26/24 05:23 Est GFR (MDRD) Af Amer > 60 (>60) 09/26/24 05:23 Est GFR (MDRD) Non-Af > 60 (>60) 09/26/24 05:23 Glucose 104 mg/dL (65-99) H 09/26/24 05:23 Lactic Acid 1.5 mmol/L (0.4-2.0) 09/24/24 11:03 Calcium 8.7 mg/dL (8.5-10.1) 09/26/24 05:23 Corrected Calcium 9.8 mg/dL (8.5-10.1) 09/26/24 05:23 Magnesium 2.0 mg/dL (2.0-2.9) 09/24/24 04:20 Total Bilirubin 0.30 mg/dL (0.2-1.0) 09/26/24 05:23 AST 33 Units/L (15-37) 09/26/24 05:23 ALT 60 Units/L (12-78) 09/26/24 05:23 Alkaline Phosphatase 63 Units/L (46-116) 09/26/24 05:23 Creatine Kinase 175 Units/L (39-308) 09/22/24 21:49 Troponin I High Sens 19.9 ng/L (4.0-60.0) 09/23/24 00:56 Total Protein 6.1 g/dL (6.4-8.2) L 09/26/24 05:23 Albumin 2.6 g/dL (3.4-5.0) L 09/26/24 05:23 Globulin 3.5 g/dL (2.5-4.5) 09/26/24 05:23 Albumin/Globulin Ratio 0.7 Ratio (1.1-2.1) L 09/26/24 05:23 Amylase 39 Units/L (25-115) 09/23/24 07:22 Lipase 17 Units/L (16-77) 09/23/24 07:22 Specimen Type Clean catch urine 09/23/24 01:46 Urine Color Yellow (YELLOW) 09/23/24 01:46 Urine Appearance Clear (CLEAR) 09/23/24 01:46 Urine pH 5.0 (5.0 - 8.0) 09/23/24 01:46 Ur Specific [place] 1.025 (1.000-1.030) 09/23/24 01:46 Urine Protein 2+ (NEGATIVE) 09/23/24 01:46 Urine Glucose (UA) Negative (NEGATIVE) 09/23/24 01:46 Urine Ketones Negative (NEGATIVE) 09/23/24 01:46 Urine Blood Negative (NEGATIVE) 09/23/24 01:46 Urine Nitrite Negative (NEGATIVE) 09/23/24 01:46 Urine Bilirubin Negative (NEGATIVE) 09/23/24 01:46 Urine Urobilinogen Normal (NORMAL) 09/23/24 01:46 Ur Leukocyte Esterase Negative (NEGATIVE) 09/23/24 01:46 Urine RBC None seen /HPF (0-3) 09/23/24 01:46 Urine WBC None seen /HPF (0-5) 09/23/24 01:46 Ur Squamous Epith Cells Few /HPF (NEGATIVE) 09/23/24 01:46 Urine Bacteria Negative /HPF (NEGATIVE) 09/23/24 01:46 Hyaline Casts Few /LPF (NEGATIVE) 09/23/24 01:46 Ur Culture Indicated? No/not indicated 09/23/24 01:46 Stl Occult Blood (IFOB) Positive (NEGATIVE) A 09/23/24 10:47 Stool for White Cells Positive (NEGATIVE) A 09/23/24 10:47 Stl C. diff Tox B Gene Negative (NEGATIVE) 09/23/24 10:47 Stl C. diff [id number] Presumptive negative (NEGATIVE) 09/23/24 10:47 Stool H. pylori Ag Negative (NEGATIVE) 09/23/24 10:47 SARS-CoV-2 (PCR) Negative (NEGATIVE) 09/22/24 22:16 Cryptosporid parvum Ag Negative (NEGATIVE) 09/24/24 11:14 Giardia lamblia Ag Negative (NEGATIVE) 09/24/24 11:14 Influenza Type A (PCR) Negative (NEGATIVE) 09/22/24 22:16 Influenza Type B (PCR) Negative (NEGATIVE) 09/22/24 22:16 RSV (PCR) Negative (NEGATIVE) 09/22/24 22:16 GI Pathogen (PCR) See scanned report 09/24/24 11:14 Plan (1) Acute renal failure (ARF): Status: Acute Qualifiers: Acute renal failure type: unspecified Qualified Code(s): N17.9 - Acute kidney failure, unspecified (2) Gastroenteritis: Status: Acute (3) Syncope: Status: Acute Qualifiers: Syncope type: unspecified Qualified Code(s): R55 - Syncope and collapse (4) Dehydration: Status: Acute (5) Sepsis: Status: Acute Qualifiers: Sepsis acute organ dysfunction status: without acute organ dysfunction Sepsis type: sepsis due to unspecified organism Qualified Code(s): A41.9 - Sepsis, unspecified organism (6) Chronic obstructive pulmonary disease: Status: Chronic Qualifiers: COPD type: unspecified COPD Qualified Code(s): J44.9 - Chronic obstructive pulmonary disease, unspecified (7) HTN (hypertension): Status: Chronic Qualifiers: Hypertension type: essential hypertension Qualified Code(s): I10 - Essential (primary) hypertension (8) History of coronary artery disease: Status: Chronic
--- NOTE | 2024-10-01 13:26 | W.DIS.FURT ---
Summary of Discharge Discharge Summary of Date Date of Exam: 09/26/24 Admission Date Date of Admission: 09/22/24 Admission Diagnosis Patient Problems (Updated 09/23/24 @ 10:22 by Linda Roman MD) Syncope (Acute) R55 Acute renal failure (ARF) (Acute) N17.9 Gastroenteritis (Acute) K52.9 Sepsis (Acute) A41.9 Hospital Course: Mr Rudolph is a 58-year-old male with a past medical history of CAD, COPD, CVA, hypertension, anxiety, depression, sleep apnea and chronic pain presented with near syncope, vomiting, diarrhea and abdominal pain. He states he initially had constipation and went to the bathroom but started feeling sick after what he was throwing up and having loose stools. He reports feeling hot and felt like he was going to pass out. This happened multiple times before he came to the ER. He states it also happened while he was in the ambulance. ER workup included negative troponin, lactic acid 2.9, elevated WBC and elevated creatinine. He had CT brain and CTAP done which did not show any abnormalities. Blood cultures were done and he was started on IV fluids and antibiotics. He reports having vomiting and diarrhea overnight. He is also having worsening right sided abdominal pain. He has never had any issues with gallbladder. Gallbladder ultrasound and HIDA scan did not show any acute abnormalities. Dr. Varela surgery was consulted. His labs were monitored daily and replaced as needed. He underwent EGD which showed hiatal hernia and gastritis. He was already taking Protonix. His cultures were negative. His abdominal pain improved and he was tolerating p.o. intake. He was stable to be discharged home. He will follow-up with PCP and surgery as scheduled. Vital Signs: Vital Signs (72 hours) 09/23/24 12:06 09/23/24 15:24 09/23/24 16:24 Temperature 98.1 F Pulse Rate Pulse Rate [Right Brachial] 77 Respiratory Rate 21 21 21 Blood Pressure Blood Pressure [Left Arm] Blood Pressure [Right Arm] 137/64 O2 Sat by Pulse Oximetry 93 L Oxygen Delivery Method Nasal Cannula Oxygen Flow Rate 2 FIO2% 09/23/24 16:37 09/23/24 18:14 09/23/24 19:00 Temperature 98.3 F Pulse Rate Pulse Rate [Right Brachial] 79 Respiratory Rate 20 20 Blood Pressure Blood Pressure [Left Arm] Blood Pressure [Right Arm] 149/73 O2 Sat by Pulse Oximetry 98 Oxygen Delivery Method Nasal Cannula Nasal Cannula Oxygen Flow Rate 2 2 FIO2% 09/23/24 19:14 09/23/24 20:00 09/23/24 20:55 Temperature 99.2 F Pulse Rate Pulse Rate [Right Brachial] 67 Respiratory Rate 21 22 Blood Pressure Blood Pressure [Left Arm] Blood Pressure [Right Arm] 138/75 O2 Sat by Pulse Oximetry 96 Oxygen Delivery Method Nasal Cannula Nasal Cannula Oxygen Flow Rate 2 2 FIO2% 28 09/23/24 20:56 09/23/24 21:00 09/23/24 21:06 Temperature 99.2 F Pulse Rate 73 71 Pulse Rate [Right Brachial] Respiratory Rate 22 25 H Blood Pressure 138/75 Blood Pressure [Left Arm] Blood Pressure [Right Arm] O2 Sat by Pulse Oximetry 97 99 Oxygen Delivery Method Nasal Cannula Oxygen Flow Rate 2 FIO2% 09/23/24 22:06 09/24/24 00:00 09/24/24 01:00 Temperature 98.4 F Pulse Rate 69 Pulse Rate [Right Brachial] 65 Respiratory Rate 21 19 23 Blood Pressure 126/75 Blood Pressure [Left Arm] Blood Pressure [Right Arm] 128/57 O2 Sat by Pulse Oximetry 96 98 Oxygen Delivery Method Nasal Cannula Nasal Cannula Oxygen Flow Rate 2 2 FIO2% 09/24/24 02:45 09/24/24 03:45 09/24/24 04:00 Temperature Pulse Rate Pulse Rate [Right Brachial] 66 Respiratory Rate 22 21 23 Blood Pressure Blood Pressure [Left Arm] Blood Pressure [Right Arm] 152/72 O2 Sat by Pulse Oximetry 95 Oxygen Delivery Method Nasal Cannula Oxygen Flow Rate 2 FIO2% 09/24/24 05:00 09/24/24 07:56 09/24/24 08:23 Temperature 98.2 F Pulse Rate 64 Pulse Rate [Right Brachial] Respiratory Rate 22 21 Blood Pressure 160/72 Blood Pressure [Left Arm] Blood Pressure [Right Arm] O2 Sat by Pulse Oximetry 95 Oxygen Delivery Method Nasal Cannula Nasal Cannula Oxygen Flow Rate 2 2 FIO2% 28 09/24/24 08:40 09/24/24 08:44 09/24/24 09:23 Temperature 97.5 F L Pulse Rate Pulse Rate [Right Brachial] 68 Respiratory Rate 19 20 Blood Pressure Blood Pressure [Left Arm] Blood Pressure [Right Arm] 165/78 O2 Sat by Pulse Oximetry 97 Oxygen Delivery Method Nasal Cannula Nasal Cannula Oxygen Flow Rate 2 2 FIO2% 09/24/24 12:16 09/24/24 15:28 09/24/24 15:53 Temperature 98.2 F Pulse Rate Pulse Rate [Right Brachial] 62 68 Respiratory Rate 19 18 18 Blood Pressure Blood Pressure [Left Arm] Blood Pressure [Right Arm] 163/78 174/79 O2 Sat by Pulse Oximetry 95 98 Oxygen Delivery Method Nasal Cannula Nasal Cannula Oxygen Flow Rate 2 2 FIO2% 09/24/24 16:06 09/24/24 16:28 09/24/24 19:00 Temperature Pulse Rate Pulse Rate [Right Brachial] Respiratory Rate 18 Blood Pressure Blood Pressure [Left Arm] 158/81 Blood Pressure [Right Arm] O2 Sat by Pulse Oximetry Oxygen Delivery Method Nasal Cannula Oxygen Flow Rate 2 FIO2% 09/24/24 20:00 09/24/24 20:57 09/24/24 21:00 Temperature 98.1 F Pulse Rate 66 Pulse Rate [Right Brachial] 63 Respiratory Rate 19 Blood Pressure Blood Pressure [Left Arm] 156/77 Blood Pressure [Right Arm] O2 Sat by Pulse Oximetry 97 99 Oxygen Delivery Method Nasal Cannula Room Air Oxygen Flow Rate 2 FIO2% 09/24/24 21:04 09/24/24 22:04 09/25/24 00:00 Temperature 98.1 F Pulse Rate Pulse Rate [Right Brachial] 65 Respiratory Rate 22 18 20 Blood Pressure Blood Pressure [Left Arm] 133/86 Blood Pressure [Right Arm] O2 Sat by Pulse Oximetry 93 L Oxygen Delivery Method Nasal Cannula Oxygen Flow Rate 2 FIO2% 09/25/24 04:00 09/25/24 04:04 09/25/24 05:01 Temperature 98.1 F Pulse Rate Pulse Rate [Right Brachial] 67 Respiratory Rate 26 H 22 20 Blood Pressure Blood Pressure [Left Arm] 169/88 Blood Pressure [Right Arm] O2 Sat by Pulse Oximetry 100 Oxygen Delivery Method Nasal Cannula Oxygen Flow Rate 2 FIO2% 09/25/24 07:00 09/25/24 07:19 09/25/24 08:00 Temperature 98.4 F Pulse Rate Pulse Rate [Right Brachial] 64 Respiratory Rate 22 Blood Pressure Blood Pressure [Left Arm] 119/63 Blood Pressure [Right Arm] O2 Sat by Pulse Oximetry 98 Oxygen Delivery Method Nasal Cannula Nasal Cannula Oxygen Flow Rate 2 2 FIO2% 09/25/24 08:31 09/25/24 08:31 09/25/24 11:30 Temperature 98 F Pulse Rate 62 Pulse Rate [Right Brachial] 62 Respiratory Rate 27 H Blood Pressure Blood Pressure [Left Arm] 145/71 Blood Pressure [Right Arm] O2 Sat by Pulse Oximetry 98 96 Oxygen Delivery Method Nasal Cannula Nasal Cannula Oxygen Flow Rate 2 2 FIO2% 28 09/25/24 11:41 09/25/24 11:49 09/25/24 12:20 Temperature 97.7 F 97.8 F 98.1 F Pulse Rate Pulse Rate [Right Brachial] 60 61 59 L Respiratory Rate 27 H 26 H 23 Blood Pressure Blood Pressure [Left Arm] 141/65 155/82 156/79 Blood Pressure [Right Arm] O2 Sat by Pulse Oximetry 98 99 99 Oxygen Delivery Method Nasal Cannula Nasal Cannula Nasal Cannula Oxygen Flow Rate 2 2 2 FIO2% 09/25/24 12:25 09/25/24 12:27 09/25/24 13:20 Temperature Pulse Rate Pulse Rate [Right Brachial] 62 70 Respiratory Rate 24 24 23 Blood Pressure Blood Pressure [Left Arm] 154/82 149/75 Blood Pressure [Right Arm] O2 Sat by Pulse Oximetry 99 97 Oxygen Delivery Method Nasal Cannula Nasal Cannula Oxygen Flow Rate 2 2 FIO2% 09/25/24 13:25 09/25/24 16:00 09/25/24 16:00 Temperature 98.1 F Pulse Rate Pulse Rate [Right Brachial] 65 Respiratory Rate 22 22 20 Blood Pressure Blood Pressure [Left Arm] 154/80 Blood Pressure [Right Arm] O2 Sat by Pulse Oximetry 97 Oxygen Delivery Method Nasal Cannula Oxygen Flow Rate 2 FIO2% 09/25/24 17:00 09/25/24 18:03 09/25/24 19:00 Temperature Pulse Rate Pulse Rate [Right Brachial] Respiratory Rate 22 20 Blood Pressure Blood Pressure [Left Arm] Blood Pressure [Right Arm] O2 Sat by Pulse Oximetry Oxygen Delivery Method Nasal Cannula Oxygen Flow Rate 2 FIO2% 09/25/24 19:03 09/25/24 20:00 09/25/24 20:07 Temperature 98.1 F Pulse Rate Pulse Rate [Right Brachial] 74 Respiratory Rate 20 22 20 Blood Pressure Blood Pressure [Left Arm] 140/80 Blood Pressure [Right Arm] O2 Sat by Pulse Oximetry 98 Oxygen Delivery Method Nasal Cannula Oxygen Flow Rate 2 FIO2% 09/25/24 20:30 09/25/24 20:31 09/25/24 21:07 Temperature Pulse Rate 69 Pulse Rate [Right Brachial] Respiratory Rate 20 Blood Pressure Blood Pressure [Left Arm] Blood Pressure [Right Arm] O2 Sat by Pulse Oximetry 99 Oxygen Delivery Method Nasal Cannula Oxygen Flow Rate 2 FIO2% 28 09/25/24 23:38 09/26/24 00:20 09/26/24 01:20 Temperature 98.1 F Pulse Rate Pulse Rate [Right Brachial] 61 Respiratory Rate 20 18 18 Blood Pressure Blood Pressure [Left Arm] 151/78 Blood Pressure [Right Arm] O2 Sat by Pulse Oximetry 97 Oxygen Delivery Method Room Air Oxygen Flow Rate FIO2% 09/26/24 04:00 09/26/24 04:00 09/26/24 06:20 Temperature 97.9 F 97.9 F Pulse Rate Pulse Rate [Right Brachial] 65 65 Respiratory Rate 18 18 18 Blood Pressure Blood Pressure [Left Arm] 142/75 142/75 Blood Pressure [Right Arm] O2 Sat by Pulse Oximetry 97 97 Oxygen Delivery Method Room Air Room Air Oxygen Flow Rate FIO2% 09/26/24 07:00 09/26/24 07:20 09/26/24 07:58 Temperature 98.2 F Pulse Rate Pulse Rate [Right Brachial] 65 Respiratory Rate 18 21 Blood Pressure Blood Pressure [Left Arm] 187/84 Blood Pressure [Right Arm] O2 Sat by Pulse Oximetry 96 Oxygen Delivery Method Nasal Cannula Room Air Oxygen Flow Rate 2 FIO2% 09/26/24 08:38 Temperature Pulse Rate 65 Pulse Rate [Right Brachial] Respiratory Rate Blood Pressure Blood Pressure [Left Arm] Blood Pressure [Right Arm] O2 Sat by Pulse Oximetry 96 Oxygen Delivery Method Oxygen Flow Rate FIO2% Labs: Laboratory Last Values WBC 6.9 X10^3/uL (3.6-10.0) 09/26/24 05:23 RBC 3.73 X10^6/uL (4.7-6.0) L 09/26/24 05:23 Hgb 12.0 g/dL (13.5-18.0) L 09/26/24 05:23 Hct 34.4 % (42.0-54.0) L 09/26/24 05:23 MCV 92.4 fL (80.0-100.0) 09/26/24 05:23 MCH 32.1 pg (27.0-34.0) 09/26/24 05:23 MCHC 34.8 g/dL (33.0-35.0) 09/26/24 05:23 RDW 13.0 % (11.6-16.5) 09/26/24 05:23 Plt Count 204 X10^3/uL (150.0-450.0) 09/26/24 05:23 Plt Count Comment Adequate (ADEQUATE) 09/23/24 07:22 MPV 7.5 fL (7.4-11.0) 09/26/24 05:23 Neut % (Auto) 71.3 % (42.0-75.0) 09/26/24 05:23 Lymph % (Auto) 16.0 % (21.0-51.0) L 09/26/24 05:23 [place] % (Auto) 9.5 % (0.0-13.0) 09/26/24 05:23 Eos % (Auto) 2.4 % (0.9-2.9) 09/26/24 05:23 Baso % (Auto) 0.8 % (0.2-1.0) 09/26/24 05:23 Neut # (Auto) 4.9 x10^3/uL (2.2-4.8) H 09/26/24 05:23 Lymph # (Auto) 1.1 X10^3/uL (1.3-2.9) L 09/26/24 05:23 [place] # (Auto) 0.7 x10^3/uL (0.3-0.8) 09/26/24 05:23 Eos # (Auto) 0.2 x10^3/uL (0.0-0.2) 09/26/24 05:23 Baso # (Auto) 0.1 X10^3/uL (0.0-0.1) 09/26/24 05:23 Absolute Nucleated RBC 0.0 /100WBC 09/26/24 05:23 Total Counted 100 09/23/24 07:22 Neutrophils % (Manual) 95 % (39-76) H 09/23/24 07:22 Band Neutrophils % 1 % (0-10) 09/23/24 07:22 Lymphocytes % (Manual) 1 % (13-43) L 09/23/24 07:22 Monocytes % (Manual) 2 % (4-9) L 09/23/24 07:22 Eosinophils % (Manual) 1 % (0-6) 09/23/24 07:22 Plt Morphology Comment Normal (NORMAL) 09/23/24 07:22 RBC Morphology Normal (NORMAL) 09/23/24 07:22 D-Dimer 0.63 ug/ml (0.0-0.57) H 09/24/24 11:03 Sodium 143 mmol/L (136-145) 09/26/24 05:23 Corrected Sodium TNP 09/26/24 05:23 Potassium 4.2 mmol/L (3.5-5.1) 09/26/24 05:23 Chloride 107 mmol/L (98-107) 09/26/24 05:23 Carbon Dioxide 34.2 mmol/L (21-32) H 09/26/24 05:23 BUN 6 mg/dL (7-18) L 09/26/24 05:23 Creatinine 0.82 mg/dL (0.70-1.30) 09/26/24 05:23 Est GFR (MDRD) Af Amer > 60 (>60) 09/26/24 05:23 Est GFR (MDRD) Non-Af > 60 (>60) 09/26/24 05:23 Glucose 104 mg/dL (65-99) H 09/26/24 05:23 Lactic Acid 1.5 mmol/L (0.4-2.0) 09/24/24 11:03 Calcium 8.7 mg/dL (8.5-10.1) 09/26/24 05:23 Corrected Calcium 9.8 mg/dL (8.5-10.1) 09/26/24 05:23 Magnesium 2.0 mg/dL (2.0-2.9) 09/24/24 04:20 Total Bilirubin 0.30 mg/dL (0.2-1.0) 09/26/24 05:23 AST 33 Units/L (15-37) 09/26/24 05:23 ALT 60 Units/L (12-78) 09/26/24 05:23 Alkaline Phosphatase 63 Units/L (46-116) 09/26/24 05:23 Creatine Kinase 175 Units/L (39-308) 09/22/24 21:49 Troponin I High Sens 19.9 ng/L (4.0-60.0) 09/23/24 00:56 Total Protein 6.1 g/dL (6.4-8.2) L 09/26/24 05:23 Albumin 2.6 g/dL (3.4-5.0) L 09/26/24 05:23 Globulin 3.5 g/dL (2.5-4.5) 09/26/24 05:23 Albumin/Globulin Ratio 0.7 Ratio (1.1-2.1) L 09/26/24 05:23 Amylase 39 Units/L (25-115) 09/23/24 07:22 Lipase 17 Units/L (16-77) 09/23/24 07:22 Specimen Type Clean catch urine 09/23/24 01:46 Urine Color Yellow (YELLOW) 09/23/24 01:46 Urine Appearance Clear (CLEAR) 09/23/24 01:46 Urine pH 5.0 (5.0 - 8.0) 09/23/24 01:46 Ur Specific [place] 1.025 (1.000-1.030) 09/23/24 01:46 Urine Protein 2+ (NEGATIVE) 09/23/24 01:46 Urine Glucose (UA) Negative (NEGATIVE) 09/23/24 01:46 Urine Ketones Negative (NEGATIVE) 09/23/24 01:46 Urine Blood Negative (NEGATIVE) 09/23/24 01:46 Urine Nitrite Negative (NEGATIVE) 09/23/24 01:46 Urine Bilirubin Negative (NEGATIVE) 09/23/24 01:46 Urine Urobilinogen Normal (NORMAL) 09/23/24 01:46 Ur Leukocyte Esterase Negative (NEGATIVE) 09/23/24 01:46 Urine RBC None seen /HPF (0-3) 09/23/24 01:46 Urine WBC None seen /HPF (0-5) 09/23/24 01:46 Ur Squamous Epith Cells Few /HPF (NEGATIVE) 09/23/24 01:46 Urine Bacteria Negative /HPF (NEGATIVE) 09/23/24 01:46 Hyaline Casts Few /LPF (NEGATIVE) 09/23/24 01:46 Ur Culture Indicated? No/not indicated 09/23/24 01:46 Stl Occult Blood (IFOB) Positive (NEGATIVE) A 09/23/24 10:47 Stool for White Cells Positive (NEGATIVE) A 09/23/24 10:47 Stl C. diff Tox B Gene Negative (NEGATIVE) 09/23/24 10:47 Stl C. diff [id number] Presumptive negative (NEGATIVE) 09/23/24 10:47 Stool H. pylori Ag Negative (NEGATIVE) 09/23/24 10:47 SARS-CoV-2 (PCR) Negative (NEGATIVE) 09/22/24 22:16 Cryptosporid parvum Ag Negative (NEGATIVE) 09/24/24 11:14 Giardia lamblia Ag Negative (NEGATIVE) 09/24/24 11:14 Influenza Type A (PCR) Negative (NEGATIVE) 09/22/24 22:16 Influenza Type B (PCR) Negative (NEGATIVE) 09/22/24 22:16 RSV (PCR) Negative (NEGATIVE) 09/22/24 22:16 Reason For Visit: SEPSIS, GASTROENTERITIS,ARF Discharge Diagnosis All Active Problems (Updated 09/23/24 @ 10:22 by Linda Roman MD) Dehydration (Acute) Syncope (Acute) Acute renal failure (ARF) (Acute) Gastroenteritis (Acute) Sepsis (Acute) Otitis media, left (Acute) Respiratory distress (Acute) Sinusitis (Acute) Pre-operative clearance (Acute) Fever (Acute) Chronic sinusitis, unspecified (Acute) History of recurrent ear infection (Acute) Post viral syndrome (Acute) COPD exacerbation (Acute) Headache (Acute) Cough (Acute) Otalgia (Acute) Decreased hearing of both ears (Acute) Otitis media (Acute) History of changes in urinary output (Acute) Costovertebral angle tenderness (Acute) Decreased appetite (Acute) Colon cancer screening (Acute) Vitamin D deficiency (Acute) Low testosterone in male (Acute) Fatigue (Acute) Influenza vaccine refused (Acute) Hospital discharge follow-up (Acute) Flank pain (Acute) Obstructive sleep apnea (Acute) Paroxysmal nocturnal dyspnea (Acute) Bronchitis (Acute) AFX (amaurosis fugax) (Chronic) Constipation (Acute) HTN (hypertension) (Chronic) Chronic obstructive pulmonary disease (Chronic) History of coronary artery disease (Chronic) Plan of Treatment: Continue with present treatment and follow up plan. Pt is to keep follow up appointment as instructed and take medications as ordered. Discharge Medications Discharge Medications: codeine Allergy (Unknown, Verified 09/02/24 15:02) meloxicam Allergy (Unknown, Verified 09/02/24 15:02) morphine Allergy (Unknown, Verified 09/02/24 15:02) Penicillins Allergy (Verified 09/02/24 15:02) atorvastatin Adverse Reaction (Verified 09/02/24 15:02) [id number] Reductase Inhibitor (Qotsdau-Fxn-Suh Reductase Inhibitor) Adverse Reaction (Verified 09/02/24 15:02) CONTINUE taking the following medications montelukast 10 mg tablet (Singulair) 10 mg PO QHS 09/23/24 [History] pantoprazole 40 mg tablet,delayed release (Protonix) 40 mg PO QDAY 09/23/24 [History] New Prescriptions metronidazole 500 mg tablet 500 mg PO Q8H 5 days #15 tabs 09/26/24 [Rx] Discharge Disposition Assessment: No distress noted. Discharge Disposition: home Discharge Condition: stable Discharge Plan Discharge Plan Hospital Course: Mr Rudolph is a 58-year-old male with a past medical history of CAD, COPD, CVA, hypertension, anxiety, depression, sleep apnea and chronic pain presented with near syncope, vomiting, diarrhea and abdominal pain. He states he initially had constipation and went to the bathroom but started feeling sick after what he was throwing up and having loose stools. He reports feeling hot and felt like he was going to pass out. This happened multiple times before he came to the ER. He states it also happened while he was in the ambulance. ER workup included negative troponin, lactic acid 2.9, elevated WBC and elevated creatinine. He had CT brain and CTAP done which did not show any abnormalities. Blood cultures were done and he was started on IV fluids and antibiotics. He reports having vomiting and diarrhea overnight. He is also having worsening right sided abdominal pain. He has never had any issues with gallbladder. Gallbladder ultrasound and HIDA scan did not show any acute abnormalities. Dr. Varela surgery was consulted. His labs were monitored daily and replaced as needed. He underwent EGD which showed hiatal hernia and gastritis. He was already taking Protonix. His cultures were negative. His abdominal pain improved and he was tolerating p.o. intake. He was stable to be discharged home. He will follow-up with PCP and surgery as scheduled. Patient Disposition: 01 HOME, SELF-CARE Condition: Stable Health Concerns: Post Hospitalization: new medications and changes needed to prevent readmission or further decline. Pt educated and given instructions on all concerns. Care Plan Goals: Problem: Infection Goal: Temperature within normal limits. Resolved infection. Instructions: Follow provided instructions. Follow up with primary physician as directed. Contact primary care physician or report to the closest Emergency Room if condition worsens. Plan of Treatment: Continue with present treatment and follow up plan. Pt is to keep follow up appointment as instructed and take medications as ordered. Assessment: No distress noted. Prescription drug monitoring program results: PDMP reviewed and no concerns identified Prescriptions: Continued diclofenac sodium 1 % gel 2 g topical QID PRN (Reason: for joint pain) Qty: 100 2RF gabapentin 600 mg tablet 600 mg PO BID Qty: 60 2RF aspirin 81 mg tablet,delayed release (DR/EC) 81 mg PO QDAY Qty: 90 0RF albuterol sulfate [Ventolin HFA] 90 mcg/actuation HFA aerosol inhaler 1 - 2 puff PO Q4-6H PRN (Reason: for dyspnea) Qty: 18 2RF ipratropium-albuterol 0.5 mg-3 mg(2.5 mg base)/3 mL solution for nebulization 1 ml inhalation BID Qty: 180 2RF rosuvastatin [Crestor] 10 mg tablet 20 mg PO DAILY 30 Days Qty: 30 Rx Instructions: FreeTextSi (one) tablet at bedtime; Note: cardiology; Refills: 0; Provider: Jessie Mckeon lisinopril [Zestril] 40 mg tablet 40 mg PO QDAY Patient Comments: CARDIO PRESCRIBES fluticasone propionate 50 mcg/actuation spray,suspension 1 spray intranasal BID PRN (Reason: allergy symptoms) Qty: 16 1RF hydrochlorothiazide 25 mg tablet 25 mg PO QDAY 30 Days Qty: 30 2RF carvedilol [Coreg] 3.125 mg tablet 6.25 mg PO BID Patient Comments: cardio Rx Instructions: must administer with a meal/food hydrocodone-acetaminophen 10-325 mg tablet 1 tab PO QID MDD 4 PRN (Reason: pain) 30 Days Qty: 120 0RF alprazolam 1 mg tablet 1 mg PO QHS MDD 1 PRN (Reason: sleep) 30 Days Qty: 30 0RF cefdinir 300 mg capsule 300 mg PO BID 10 Days Qty: 20 0RF pantoprazole [Protonix] 40 mg tablet,delayed release (DR/EC) 40 mg PO QDAY montelukast [Singulair] 10 mg tablet 10 mg PO QHS amlodipine [Norvasc] 10 mg Tablet 10 mg PO QDAY cetirizine [Zyrtec] 10 mg Tablet 10 mg PO QDAY ezetimibe [Zetia] 10 mg Tablet 10 mg PO QDAY Follow ups/Referrals Follow ups/Referrals: FRAN CENTENO [STAFF PHYSICIAN, MEDICAL] - 1 WEEK Linda Roman MD [Primary Care Provider, Unknown] - 1 WEEK Instructions Instructions: Acute Kidney Injury, Adult, Gastritis, Adult, [id number], Hiatal Hernia, Near-Syncope, Shfq-[id number], Metronidazole tablets or capsules Stand Alone Forms: Excuse From Work or School, Find Help Web Site, Post Hospital Follow Up Care Print Language: NEPALI
== END 2024-09-26 11:30 | disposition home or self-care (01) | DRG 683 ==
LOC: ICU 21:31 → ER 21:31 → OBSVTOIN 09-23 04:46 → ICU 09-23 05:33 → MED/SURG 09-25 14:00
PROVIDERS: ADMIT Obstetrics & Gynecology Obstetrics; ATTEND Internal Medicine
DX: R00.0 Tachycardia, unspecified; K44.9 Diaphragmatic hernia without obstruction or gangrene; N17.8 Other acute kidney failure; Z86.73 Personal history of transient ischemic attack (TIA), and cerebral infarction without residual deficits; R26.89 Other abnormalities of gait and mobility; I10 Essential (primary) hypertension; K92.1 Melena; K52.89 Other specified noninfective gastroenteritis and colitis; Z03.818 Encounter for observation for suspected exposure to other biological agents ruled out; R55 Syncope and collapse; A08.11 Acute gastroenteropathy due to Norwalk agent; R06.02 Shortness of breath; J44.9 Chronic obstructive pulmonary disease, unspecified; R10.84 Generalized abdominal pain; R11.2 Nausea with vomiting, unspecified; I25.10 Atherosclerotic heart disease of native coronary artery without angina pectoris; E86.0 Dehydration; R07.89 Other chest pain; Z86.79 Personal history of other diseases of the circulatory system; R79.1 Abnormal coagulation profile; E78.5 Hyperlipidemia, unspecified; K29.00 Acute gastritis without bleeding; F41.8 Other specified anxiety disorders